=== PATIENT | female | born 1965 | race Caucasian/White ===

== ENCOUNTER 2020-02-14 05:37 | Emergency (ER) | payer MEDICAID, SELFPAY ==
[2020-02-14] VITALS (11 sets, daily range): BP systolic 135–173; BP diastolic 66–110; PULSE 66–100; RESP 14–24; TEMP 36.6–36.8; O2SAT 96–99; BMI 24.4
--- NOTE | 2020-02-14 06:22 | CTR_ITS ---
PROCEDURE INFORMATION: Exam: CT Abdomen And Pelvis Without Contrast Exam date and time: 02/14/2020 6:23 AM Age: 54 years old Clinical indication: Pain; Other: Left flank; Additional info: Left flank pain w/ HX of renal stones TECHNIQUE: Imaging protocol: Computed tomography of the abdomen and pelvis without contrast. Radiation optimization: All CT scans at this facility use at least one of these dose optimization techniques: automated exposure control; mA and/or kV adjustment per patient size (includes targeted exams where dose is matched to clinical indication); or iterative reconstruction. COMPARISON: CT Abdomen/Pelvis Renal [id number] 07/18/2017 8:38 AM RADIATION DOSE METRICS: Total DLP (mGy-cm): 817.97 FINDINGS: Limitations: Examinations performed without intravenous contrast have limited ability to detect many conditions. Lungs: Mild patchy atelectasis at bilateral lung bases. Liver: There is a 1.7 cm x 1.4 cm hypodensity in the right hepatic lobe on series 2, image 76, etiology and clinical significance uncertain. This is similar to prior study. Gallbladder and bile ducts: Unremarkable. Pancreas: Unremarkable. Spleen: Unremarkable. Adrenal glands: Unremarkable. Kidneys and ureters: The right kidney is unremarkable. There is a 0.2 cm stone in the left mid kidney. There is a 0.5 cm stone in the left upper ureter on series 2, image 99. Moderate left hydronephrosis. Stomach and bowel: Large hiatal hernia, which contains a large portion of the proximal stomach. No bowel obstruction identified. No diverticulitis identified. Appendix: A normal-appearing appendix is seen in the right lower quadrant. Intraperitoneal space: No free intraperitoneal air identified. No free intraperitoneal fluid identified. Vasculature: No abdominal aortic aneurysm. Lymph nodes: Unremarkable. Urinary bladder: Unremarkable as visualized. Reproductive: Unremarkable as visualized. Bones/joints: No emergent findings identified. Soft tissues: Unremarkable. CT/CT kidney stone [id number] IMPRESSION: 1. Left upper ureteral stone measuring 0.5 cm. Moderate left hydronephrosis. 2. Large hiatal hernia, which contains a large portion of the proximal stomach. This is larger than prior study. Radiation Dose CTDIVOL = (mGy): DLP = 817.97 (mGy-cm)
--- NOTE | 2020-02-14 06:22 | W.ED.ABDPA2 ---
HPI - Abdominal Pain General: Chief Complaint: Abdominal Pain Stated Complaint: Flank Pain/Abd pain Time Seen by Provider: 02/14/20 06:14 History of Present Illness: HPI narrative: 54 yo female w L flank pain and a hx of nephrolithiasis. Comes in today came planing of left flank pain that began 2 hours previous. She is not noticed any hematuria. Pain is severe similar to pain she has had in the past with nephrolithiasis she has severe nausea with it. She has not noticed any change in bowel habits. MD elicited complaint: flank pain Pertinent past history: kidney stones Onset (ago): hour(s) Location: L flank Severity: severe Quality: cramping Radiation: suprapubic Exacerbating factors: nothing Relieving factors: medication Associated Symptoms: Reports GI cramping, nausea, poor appetite and vomiting; Denies change in bowel habits, change in stool character, chills, coffee ground emesis, constipation, diarrhea, dyspepsia, dysuria, excessive flatus, fever(s), heartburn, hematochezia, hematuria, hematemesis, fecal incontinence, loose stools, melena and syncope Review of Systems Const: Denies: fever(s) or chills ENMT: Denies: throat pain, ear or mastoid pain, nasal discharge or nasal congestion Card: Denies: syncope Resp: Denies: dyspnea, productive cough or non-productive cough GI: Reports: nausea, vomiting and GI cramping; Denies: hematemesis, coffee ground emesis, heartburn, constipation, excessive flatus, fecal incontinence, change in bowel habits, change in stool character, hematochezia or melena : Denies: dysuria or hematuria Skin/Breast: Denies: rash or pruritus PFSH ED PFSH: Medical History (Updated 02/14/20 @ 07:25 by Aroldo Wisdom DO) Nephrolithiasis Physical Exam Const: COMMON NORMALS: no acute distress GENERAL APPEARANCE: cooperative and comfortable ORIENTATION/CONSCIOUSNESS: Yes awake, Yes oriented to person, Yes oriented to place and Yes oriented to time HENMT: COMMON NORMALS: normocephalic, atraumatic and hearing grossly normal bilaterally HEAD & SCALP: normocephalic and atraumatic Neck/C-Spine: COMMON NORMALS: no JVD Resp: COMMON NORMALS: normal respiratory effort, No retractions, No use of accessory muscles and clear to auscultation bilaterally AUSCULTATION: clear to auscultation bilaterally Cardio: COMMON NORMALS: no JVD, regular rate, regular rhythm and No murmurs present (Cardio) RATE: regular rate RHYTHM: regular rhythm GI: COMMON NORMALS: Soft to palpation and No hepatosplenomegaly present AUSCULTATION: Yes normoactive bowel sounds PALPATION: Yes Soft to palpation, No Tenderness to palpation present (GI), No Guarding due to palpation present (GI) and Yes No hepatosplenomegaly present Back/Pelvis: GENERAL BACK: Yes CVA tenderness CVA tenderness: left Extremity: COMMON NORMALS: normal to inspection, capillary refill normal, no clubbing, cyanosis or edema, no calf tenderness and no pedal edema Neuro: SENSORIUM/ORIENTATION: Yes oriented to person, Yes oriented to place and Yes oriented to time Skin: COMMON NORMALS: no rashes or lesions noted GENERAL SKIN EXAM: no rashes or lesions noted Course Vital Signs: Vital signs: Vital Signs Temperature 98.2 F 02/14/20 05:43 Pulse Rate 83 02/14/20 08:02 Respiratory Rate 16 02/14/20 08:02 Blood Pressure 135/74 02/14/20 08:02 Pulse Oximetry 96 02/14/20 08:02 MDM - Abdominal Pain MDM Narrative: Medical decision making narrative: CT and labs reviewed. Discussed with patient. She has a left ureterolithiasis 5 mm started on tamsulosin 1 pain medications nausea medicine strain urine and have her follow-up with Dr. Clemens later this week. She has worsening problems her pain is uncontrollable return is no sign of infection at this time in her urine. Lab Data: Attestation: I reviewed the patient's lab results. Labs: Lab Results 02/14/20 02/14/20 02/14/20 Range/Units 06:05 06:10 06:10 WBC 12.2 H (4.0-10.0) 10^3/ uL RBC 4.51 (4.1-5.3) 10^6/u L Hgb 13.1 (11.5-15.3) g/dL Hct 41.2 (37.0-47.0) % MCV 91.4 (81-99) fL MCH 29.0 (28.0-34.0) pg MCHC 31.8 (30.0-36.0) g/dL RDW 13.1 (12.1-15.1) % Plt Count 186 (130-400) 10^3/c mm MPV 11.8 H (7.4-10.4) fL Neut % (Auto) 74.6 % Lymph % (Auto) 17.4 % Prentiss % (Auto) 5.1 % Eos % (Auto) 2.0 % Baso % (Auto) 0.6 % Neut # (Auto) 9.07 H (1.8-7.7) 10^3/u L Lymph # (Auto) 2.1 (0.8-4.8) 10^3/u L Prentiss # (Auto) 0.6 (0.2-0.9) 10^3/u L Eos # (Auto) 0.2 (0.0-0.8) 10^3/u L Baso # (Auto) 0.1 (0.0-0.1) 10^3/u L Nucleated RBC % (a uto) 0 % Nucleated RBCs # 0.0 /100WBC Sodium 138 (136-145) mmol/L Potassium 4.4 (3.5-5.1) mmol/L Chloride 104 (98-107) mmol/L Carbon Dioxide 22 (22-29) mmol/L Anion Gap 16.4 (5-19) BUN 17 (6-20) mg/dL Creatinine 0.8 (0.5-0.9) mg/dL GFR Calculation 75.0 L (90-130) mL/min Glucose 98 (65-115) mg/dL Calculated Osmolal ity 288 (285-295) mOsm/k g Calcium 9.5 (8.5-10.5) mg/dL Total Bilirubin 0.2 (0.15-1.2) mg/dL AST 19 (0-32) U/L ALT 23 (0-33) U/L Alkaline Phosphata se 90 (35-105) IU/L Total Protein 6.5 L (6.6-8.7) g/dL Albumin 4.1 (3.5-5.2) g/dL Globulin 2.4 (1.3-4.6) g/dL Lipase 28 (13-60) U/L HCG, Qual (Negative) Urine Color Yellow (Yellow) Urine Appearance Sl hazy (CLEAR) Urine pH 5.0 (5-7) Ur Specific Gravit y 1.020 (1.005-1.030) Urine Protein Neg (Negative) Urine Glucose (UA) Norm (Normal) Urine Ketones Negative (Negative) Urine Blood 2+ H (Negative) Urine Nitrate Negative (Negative) Urine Bilirubin Neg (Negative) Urine Urobilinogen Norm (Negative) mg/dL Ur Leukocyte Nia ase Trace H (Negative) Urine RBC 15-25 H (0-2) /hpf Urine WBC 0-4 H (0-5) /hpf Ur Squamous Epith Cells 40-55 H (0-5) /hpf Amorphous Sediment Not Reportable Urine Bacteria 1+ H (NONE) /hpf 02/13/ Range/Units 06:10 WBC (4.0-10.0) 10^3/ uL RBC (4.1-5.3) 10^6/u L Hgb (11.5-15.3) g/dL Hct (37.0-47.0) % MCV (81-99) fL MCH (28.0-34.0) pg MCHC (30.0-36.0) g/dL RDW (12.1-15.1) % Plt Count (130-400) 10^3/c mm MPV (7.4-10.4) fL Neut % (Auto) % Lymph % (Auto) % Prentiss % (Auto) % Eos % (Auto) % Baso % (Auto) % Neut # (Auto) (1.8-7.7) 10^3/u L Lymph # (Auto) (0.8-4.8) 10^3/u L Prentiss # (Auto) (0.2-0.9) 10^3/u L Eos # (Auto) (0.0-0.8) 10^3/u L Baso # (Auto) (0.0-0.1) 10^3/u L Nucleated RBC % (a uto) % Nucleated RBCs # /100WBC Sodium (136-145) mmol/L Potassium (3.5-5.1) mmol/L Chloride (98-107) mmol/L Carbon Dioxide (22-29) mmol/L Anion Gap (5-19) BUN (6-20) mg/dL Creatinine (0.5-0.9) mg/dL GFR Calculation (90-130) mL/min Glucose (65-115) mg/dL Calculated Osmolal ity (285-295) mOsm/k g Calcium (8.5-10.5) mg/dL Total Bilirubin (0.15-1.2) mg/dL AST (0-32) U/L ALT (0-33) U/L Alkaline Phosphata se (35-105) IU/L Total Protein (6.6-8.7) g/dL Albumin (3.5-5.2) g/dL Globulin (1.3-4.6) g/dL Lipase (13-60) U/L HCG, Qual Negative (Negative) Urine Color (Yellow) Urine Appearance (CLEAR) Urine pH (5-7) Ur Specific Gravit y (1.005-1.030) Urine Protein (Negative) Urine Glucose (UA) (Normal) Urine Ketones (Negative) Urine Blood (Negative) Urine Nitrate (Negative) Urine Bilirubin (Negative) Urine Urobilinogen (Negative) mg/dL Ur Leukocyte Nia ase (Negative) Urine RBC (0-2) /hpf Urine WBC (0-5) /hpf Ur Squamous Epith Cells (0-5) /hpf Amorphous Sediment Urine Bacteria (NONE) /hpf Discharge Plan Discharge Patient Disposition: Home Clinical Impression: Nephrolithiasis Condition: Stable Prescriptions: New hydrocodone-acetaminophen 5-325 mg tablet 1 tab PO Q6H PRN (Reason: pain) Qty: 25 RF: 0 Zofran 4 mg tablet 4 mg PO Q6H PRN (Reason: nausea and vomiting) Qty: 20 RF: 0 tamsulosin 0.4 mg capsule 0.4 mg PO DAILY 14 Days Qty: 14 RF: 0 Discharge Orders: Discharge ED (Routine); Ordered 02/14/20 Ordered By: Aroldo Wisdom Discharge Diet: Usual diet Discharge Activity: Resume usual activity Activity Restrictions/Additional Instructions: Case management will call to make an appointment for you to see urology. Strain urine to collect stone for pathology. Coding Level of Care Code ED Third Shift Lieutenant for [employer] Fwd Exam Comprehensive
[2020-02-14] MEDS: ondansetron 2 mg/ML SDV 2 mL 4 MG IVP (06:25)
[2020-02-14 06:30] LABS: Basophils # 0.1 10^3/uL (0.0-0.1); Basophils % 0.6 %; Eosinophils # 0.2 10^3/uL (0.0-0.8); Hematocrit 41.2 % (37.0-47.0); Hemoglobin 13.1 g/dL (11.5-15.3); Lymphocytes # 2.1 10^3/uL (0.8-4.8); Lymphocytes % 17.4 %; Mean Corpuscular HGB Conc 31.8 g/dL (30.0-36.0); Mean Corpuscular Volume 91.4 fL (81-99); Mean Platelet Volume 11.8 fL (7.4-10.4); Monocytes # 0.6 10^3/uL (0.2-0.9); Monocytes % 5.1 %; Neutrophils # 9.07 10^3/uL (1.8-7.7); Neutrophils % 74.6 %; Nucleated Red Blood Cells % 0 %; Platelet Count 186 10^3/cmm (130-400); Red Blood Count 4.51 10^6/uL (4.1-5.3); Red Cell Distribution Width 13.1 % (12.1-15.1); White Blood Count 12.2 10^3/uL (4.0-10.0)
[2020-02-14] MEDS: morphine 4 mg/mL SDV 1 mL IVP (06:30)
[2020-02-14 06:43] LABS: HCG, Serum Qual Negative (Negative)
[2020-02-14 06:53] LABS: Bilirubin Urine Neg (Negative); Blood Urine 2+ (Negative); Glucose Urine UA Norm (Normal); Ketones Urine Negative (Negative); Leukocyte Esterase Urine Trace (Negative); Nitrate Urine Negative (Negative); Protein Urine Neg (Negative); Urine Appearance SL Hazy (CLEAR); Urine Color Yellow (Yellow); Urobilinogen Urine Norm (Negative)
[2020-02-14 07:03] LABS: Alanine Aminotransferase 23 U/L (0-33); Albumin Level 4.1 g/dL (3.5-5.2); Alkaline Phosphatase 90 IU/L (35-105); Anion Gap 16.4 (5-19); Aspartate Amino Transferase 19 U/L (0-32); Blood Urea Nitrogen 17 mg/dL (6-20); Calcium 9.5 mg/dL (8.5-10.5); Carbon Dioxide 22 mmol/L (22-29); Chloride 104 mmol/L (98-107); Globulin 2.4 g/dL (1.3-4.6); Glucose 98 mg/dL (65-115); Lipase 28 U/L (13-60); Osmolality Calculated 288 mOsm/kg (285-295); Potassium 4.4 mmol/L (3.5-5.1); Sodium 138 mmol/L (136-145); Total Bilirubin 0.2 mg/dL (0.15-1.2); Total Protein 6.5 g/dL (6.6-8.7)
--- NOTE | 2020-02-14 07:03 | PC.NURSE ---
Received report and assumed care. No acute distress noted. States med has helped a little but is requesting more pain meds.
[2020-02-14 07:07] LABS: Add Urine Culture? No; Bacteria Urine 1+ /hpf; RBC Urine 15-25 /hpf (0-2); Squamous Epithelial Cell Urine 40-55 /hpf (0-5); WBC Urine 0-4 /hpf (0-5)
[2020-02-14] MEDS: morphine 4 mg/mL SDV 1 mL 6 MG IVP (07:41)
--- NOTE | 2020-02-14 09:14 | DCPLANNER ---
fleet maintenance manager had message to schedule a follow up appointment for patient with Dr. Clemens. fleet maintenance manager called the office of Dr. Clemens, spoke with Radha, gave clinic patients information. fleet maintenance manager was told that patients information would be printed and reviewed. Clinic will call patient with appointment information.
--- NOTE | 2020-02-14 09:45 | PC.NURSE ---
Patient instructed not to drive. Must call for a ride home. TRH/ESCROW CLOSER
--- NOTE | 2020-02-15 11:37 | DCPLANNER ---
Patient had a follow up appointment for patient with Dr. Clemens - patient did attend appointment.
== END 2020-02-14 09:28 | disposition home or self-care (01) ==
PROVIDERS: Emergency Medicine; Emergency Provider Family Medicine
DX: N20.0 Calculus of kidney (principal); Z87.442 Personal history of urinary calculi
CPT/HCPCS: 12345; 74176; 80053; 81001; 83690; 84703; 85025; 96374; 96375; 99283; J2270; J2405

== ENCOUNTER 2020-02-15 08:49 | Outpatient (CLI) | payer MEDICAID, SELFPAY ==
--- NOTE | 2020-02-15 09:00 | XR_ITS ---
WS: [id number] XR KUB [id number] REASON FOR EXAM: NEPHROLITHIASIS FINDINGS: Large amount of stool throughout the colon. No bowel distention. No free air. A tiny calcific densities seen overlying the left kidney which correlates to the CT scan 02/14/2020 f indings of a tiny calculus in the left mid to lower kidney. There is a vertically oriented density wh ich overlies the transverse process of L3 which could represent the proximal ureteral calculus seen o n the CT scan 02/14/2020. No significant calcification seen in the pelvis. XR/XR KUB [id number] IMPRESSION: Findings on the plain film correlated with the CT scan for urinary calculi as a alicia.
== END 2020-02-15 08:50 | disposition home or self-care (01) ==
LOC: RAD 08:54
PROVIDERS: Visit Provider Urology
DX: N20.0 Calculus of kidney (principal)
CPT/HCPCS: 74018; 81003

== ENCOUNTER → 2020-02-20 13:14 | Outpatient (BNVA) | payer MEDICAID, SELFPAY | PROVIDERS: Visit Provider Urology | DX: N20.1 Calculus of ureter (principal) | CPT/HCPCS: 82365; 88300 ==

== ENCOUNTER 2023-01-12 15:21 | Outpatient (CLI) | payer BC, MEDICAID, SELFPAY ==
--- NOTE | 2023-01-12 15:25 | MM_ITS ---
WS: [id number] VIEWS: MLO and CC views both breasts. 3D digital tomosynthesis is also included in this exam. f no prior exams. Baseline.. Findings: Questionable 8 mm nodule identified in the central LEFT breast at mid depth almost directly behind th e nipple on the cc view only. This cannot be identified on the MLO view. No architectural distortion or suspicious calcification in either breast. No discrete suspicious nodules in the RIGHT breast. Com pression spot views of the LEFT breast as well as regional ultrasound would be recommended for furthe r work-up. There are scattered areas of fibroglandular density. Impression: MM/[place] [id number] BI-RADS: 0-Incomplete: Need additional imaging evaluation FOLLOW-UP: See Report This mammogram was also analyzed by the Computer Aided Detection System R2 Imag e [employer].
== END 2023-01-12 15:22 | disposition home or self-care (01) ==
LOC: RAD 15:21
PROVIDERS: PCP Electrodiagnostic Medicine; Visit Provider Electrodiagnostic Medicine
DX: Z12.31 Encounter for screening mammogram for malignant neoplasm of breast (principal)
CPT/HCPCS: 77063; 77067

== ENCOUNTER 2023-01-25 05:55 | Day surgery (SDC) | payer BC, MEDICAID, SELFPAY ==
[2023-01-25] VITALS (16 sets, daily range): BP systolic 145–183; BP diastolic 07–128; PULSE 65–95; RESP 10–18; TEMP 36.3–36.9; O2SAT 95–99; BMI 25.7
[2023-01-25] MEDS: sodium chloride 0.9% 1,000 ML 30 ML IV (06:52)
--- NOTE | 2023-01-25 07:01 | P.HPUD_ITS ---
Surgery/Procedure H&P Update DATE OF PROCEDURE: January 25, 2023 DATE H&P PERFORMED: 01/19/23 H&P UPDATE INFORMATION: I have reviewed H&P completed within last 30 days, I have examined patient prior to procedure and No changes to prior documentation PLANNED PROCEDURE: Operation Date: 01/25/23 08:00 Proposed Procedures p : [id number] wide local excision right upper extremety with senti radha lymph node biopsy right axillaNO NEEDLE LOC PER DR RUDOLPH,C43.9(Right) - Juan Carlos Rudolph DO s Sentinal Lymph Node Biopsy(Right) - Juan Carlos Rudolph DO
--- NOTE | 2023-01-25 07:14 | ANES.PREANE2 ---
Pre-Anesthetic Assessment Height/Weight: Height 1.6 m Weight 65.771 kg Temp Pulse Resp BP Pulse Ox O2 Del Method 98.4 F 78 18 145/99 98 Room Air 01/25/23 06:53 01/25/23 06:53 01/25/23 06:53 01/25/23 06:53 01/25/23 06:53 01/25/23 06:58 Operation Date: 01/25/23 08:00 Proposed Procedures p : [id number] wide local excision right upper extremety with sentinel lymph node biopsy right axillaNO NEEDLE LOC PER DR RUDOLPH,C43.9(Right) - DO kanwal Potts Sentinal Lymph Node Biopsy(Right) - Juan Carlos Rudolph DO Familial anesthetic complications: None Was Beta Nevaeh taken within 24 hours: N/A Was Clonidine taken within 24 hours: N/A Last intake: Intake Last Liquid Date 01/24/23 Last Liquid Time 23:00 Last Solid Date 01/24/23 Last Solid Time 23:00 Social Tobacco and No alcohol Exam alert, oriented x 3, clear to auscultation bilaterally and regular rate & rhythm Airway Mallampati: Class I Dentition: false GI Gastroesophageal Reflux Disease Anesthetic Plan ASA status: 2 Anesthesia: General Risk of > 500 ml blood loss (7ml/kg in children): No Medications/Allergies Home Medications Medication Instructions Recorded Confirmed Last Taken Type pantoprazole 20 mg tablet,delayed 20 mg PO DAILY gerd 01/20/23 01/20/23 01/22/23 History release Allergies Allergy/AdvReac Type Severity Reaction Status Date / Time No Known Allergies Allergy Verified 01/25/23 06:18 Current Medications Generic Name Dose Route Start Last Admin Trade Name Freq PRN Reason Stop Dose Admin Sodium Chloride 1,000 mls @ 30 mls/hr 01/25/23 06:45 01/25/23 06:52 Sodium Chloride 0.9% IV 01/26/23 06:44 30 mls/hr .Q24H JASMINE Administration PFSH Anesthesia Medical History Hiatal hernia Urolithiasis Surgical History S/P extracorporeal shock wave therapy Family History Mother Cancer lung Social History Smoking and tobacco/nicotine status: current every day tobacco/nicotine user Alcohol intake: never Substance/Drug Use: never Marital status: Current occupational status: unemployed Data Anesthesia Cardiac Studies: No Data to Display
[2023-01-25] MEDS: ceFAZolin 2,000 MG in sodium chloride 0.9% (plus) 50 ML 100 MG IV (09:30)
[2023-01-25] MEDS: isosulfan blue 10 mg/mL SDV 5mL SUBCUT (09:43)
[2023-01-25] MEDS: lidocaine-epi 2% 20 mL INJ INJECTION (09:52)
--- NOTE | 2023-01-25 10:42 | P.OP_ITS ---
Operative Report Date of procedure: January 25, 2023 Pre-op diagnosis: Malignant melanoma right arm Post-op diagnosis: same Procedure done: Wide local excision of malignant melanoma right arm with right axillary sentinel lymph node biopsy Implants: Surgicel x 2 Specimens removed/disposition: Right axillary sentinel lymph node biopsies x 2 Wide local excision right arm Surgeon: Juan Carlos Jordan DO Anesthesia: General and Local Estimated blood loss (mL): 20 Complications: None apparent Brief History: This very pleasant 57-year-old female who was found to have a malignant melanoma of her right arm. This was excised. It was 1 cm in diameter and 4.1 mm in thickness. Wide local excision with right axillary sentinel lymph node biopsy was indicated. The risk and benefits were explained and documented. Procedure: Patient was wheeled operative room placed on the OR table in supine position. The right axilla was inspected prepped and draped in usual sterile fashion. General endotracheal intubation was achieved by department anesthesia. A timeout was performed. All present were in agreement. Lymphazurin blue was injected underneath the site of the malignant melanoma and massaged into place for 5 minutes. Previously technetium was injected by radiology and they had indicated 2 areas of possible sentinel lymph nodes. The [place] counter read [id number] over the area of malignant melanoma. 2% lidocaine with epinephrine was used to inject the skin in the right axilla. A 10 blade scalpel was then used to make a 4 mm curvilinear incision on the anterior axillary line. Dissection was carried down with electrocautery through the dermis and subcutaneous fat. [place] counter was used to attempt to identify a sentinel node. No nodes were identified greater than 10%. I did however find too large lymph nodes in the right axilla. They were not blue and were not 10% on the Stefan counter of the primary lesion but I took them. Specimens were sent to pathology in formalin. Hemostasis was controlled with electrocautery and 2 pieces of Surgicel. A second incision was made more laterally, measuring 3 cm in length. No further sentinel lymph nodes were found. Incisions were closed with 3-0 Vicryl in an interrupted fashion at the dermis and skin glue was applied. The right posterior arm was then inspected prepped and draped usual sterile fashion. 2% lidocaine with epinephrine was used to anesthetize the area around the previous lesion. Wide local excision was performed. Approximately 1 and half centimeters was taken in all directions around the scar. A 10 blade scalpel was used to perform an elliptical excision. Electrocautery was used to dissect down through the dermis and a cough the excision. Hemostasis was controlled with electrocautery. Skin was closed with 3-0 nylon in an interrupted fashion. Sterile bandages were applied. Patient tolerated procedure well.
[2023-01-25] MEDS: fentaNYL 50 mcg/mL INJ 2mL IVP (11:19)
[2023-01-25] MEDS: labetalol 5 mg/mL SDV 20mL 100 MG (11:30)
[2023-01-25] MEDS: HYDROcodone-acetaminophen 10-325 mg Tablet 1 TAB PO (12:37)
== END 2023-01-25 13:05 | disposition home or self-care (01) ==
PROVIDERS: PCP Electrodiagnostic Medicine; Visit Provider Surgery
PROC: (CPT 19120; principal; 2023-01-25 07:40)
PROC: (CPT 11601; 2023-01-25 07:40)
DX: C43.61 Malignant melanoma of right upper limb, including shoulder (principal); F17.210 Nicotine dependence, cigarettes, uncomplicated
CPT/HCPCS: 11601; 38500; 78195; 88304; 88307; 88342; 88344; A9541; J0690; J1100; J2405; J2704; J3010; J3490; J7030; Q9968

== ENCOUNTER 2023-02-09 07:51 | Oncology outpatient (recurring) (ONCR) | payer BC, MEDICAID, SELFPAY ==
[2023-02-09 09:56] LABS: Basophils # 0.1 10^3/uL (0.0-0.1); Eosinophils # 0.2 10^3/uL (0.0-0.8); Eosinophils % 2.8 %; Hematocrit 43.7 % (36-47); Lymphocytes # 1.3 10^3/uL (0.8-4.8); Lymphocytes % 18.2 %; Mean Corpuscular Hemoglobin 28.1 pg (27-33); Mean Corpuscular Volume 87.6 fl (85-98); Mean Platelet Volume 11.4 fL (7.4-10.4); Monocytes # 0.4 10^3/uL (0.2-0.9); Monocytes % 5.5 %; Neutrophils # 5.16 10^3/uL (1.8-7.7); Neutrophils % 72.4 %; Nucleated Red Blood Cells % 0 %; Platelet Count 236 10^3/cmm (157-399); Red Blood Count 4.99 10^6/uL (3.85-5.65); Red Cell Distribution Width 14.7 % (12.1-15.1); White Blood Count 7.13 10^3/uL (3.29-11.43)
[2023-02-09 10:17] LABS: Alanine Aminotransferase 26 U/L (0-33); Albumin Level 4.5 g/dL (3.5-5.2); Alkaline Phosphatase 128 U/L (35-105); Anion Gap 15.2 (5-19); Aspartate Amino Transferase 21 U/L (0-32); Blood Urea Nitrogen 11 mg/dL (6-20); Carbon Dioxide 26 mmol/L (22-29); Chloride 103 mmol/L (98-107); Globulin 3.1 g/dL (1.3-4.6); Glomerular Filtration Rate 74.2 mL/min (90-130); Glucose 77 mg/dL (65-115); Lactate Dehydrogenase 186 U/L (135-214); Osmolality Calculated 288 mOsm/kg (285-295); Potassium 4.2 mmol/L (3.5-5.1); Sodium 140 mmol/L (136-145); Total Bilirubin 0.2 mg/dL (0.15-1.2); Total Protein 7.6 g/dL (6.6-8.7)
[2023-02-09 10:52] LABS: Hepatitis A Antibody IgM Non-Reactive (Nonreactive); Hepatitis B Core AB, Total Non-Reactive (Nonreactive); Hepatitis B Surface AB < 3.5 (11.5-1000); Hepatitis B Surface Antigen Non-Reactive (Nonreactive); Hepatitis C Virus Antibody Non-Reactive (Nonreactive)
[2023-02-10 12:26] LABS: Leukemia Profile (BBPL) See Report; Lymphoma Profile (BBPL) See Report
== END 2023-02-28 23:59 | disposition home or self-care (01) ==
PROVIDERS: Internal Medicine; PCP Electrodiagnostic Medicine; Visit Provider Electrodiagnostic Medicine
DX: C82.90 Follicular lymphoma, unspecified, unspecified site (principal); Z98.890 Other specified postprocedural states; Z85.820 Personal history of malignant melanoma of skin; R92.8 Other abnormal and inconclusive findings on diagnostic imaging of breast
CPT/HCPCS: 36415; 80053; 83615; 85025; 86705; 86706; 86709; 86803; 87340; 88184; 88185

== ENCOUNTER 2023-02-11 09:17 | Day surgery (SDC) | payer BC, MEDICAID, SELFPAY ==
[2023-02-11] VITALS (11 sets, daily range): BP systolic 115–149; BP diastolic 81–103; PULSE 71–96; RESP 14–18; TEMP 36.2–36.8; O2SAT 95–100; BMI 25.7
--- NOTE | 2023-02-11 09:31 | SC_ITS ---
WS: [id number] Infusion port placement, C-arm fluoroscopy, 02/11/2023 Clinical Data: Mediport placement Comparison: None. Findings: Dr. Jordan placed an infusion port via the right subclavian vein. The port ends in the caval atrial junction Impression: Infusion port placement.
--- NOTE | 2023-02-11 09:31 | XR_ITS ---
WS: [id number] Exam: XR chest 1V portable [id number] Date/Time of Exam: 02/11/2023 9:31 AM Reason For Exam: Postop Mediport placement No priors. RIGHT subclavian port has been placed and ends in the lower third of the SVC. A double density seen i n the LEFT retrocardiac region may represent infiltrate or mass. Remaining lung [place] are clear. The mediastinum is normal in contour. Heart size is normal. Bony structures are intact. IMPRESSION: 1. Right-sided subclavian port in satisfactory position. 2. Double density seen in the LEFT retrocardiac region that may represent consolidated infiltrate or mass in the LEFT lower lobe. Recommendations: Follow-up PA and lateral chest x-ray would be recommended for further work-up.
--- NOTE | 2023-02-11 10:00 | W.PM.OPSUD ---
Surgery/Procedure H&P Update DATE OF PROCEDURE: February 11, 2023 DATE H&P PERFORMED: 02/09/23 H&P UPDATE INFORMATION: I have reviewed H&P completed within last 30 days, I have examined patient prior to procedure and No changes to prior documentation PLANNED PROCEDURE: Operation Date: 02/11/23 10:50 Proposed Procedures p [id number] port placement C85.90(Not Applicable) - Juan Carlos Jordan, DO
[2023-02-11] MEDS: sodium chloride 0.9% 1,000 ML 30 ML IV (10:01)
--- NOTE | 2023-02-11 10:36 | ANES.PAUD2 ---
Pre-Anesthetic Update Pre-Anesthetic Assessment: Date of Surgery/Procedure: 02/11/23 Proposed Procedure: Operation Date: 02/11/23 10:50 Proposed Procedures p [id number] port placement C85.90(Not Applicable) - Juan Carlos Jordan, DO Any changes to Pre-Anesthetic Assessment?: No Last Intake: Intake Last Liquid Date 02/10/23 Last Liquid Time 20:00 Last Solid Date 02/10/23 Last Solid Time 18:00 Vitals: Temperature 98.2 F 02/11/23 09:41 Temperature Source Temporal Artery S can 02/11/23 09:41 Pulse Rate 77 02/11/23 09:41 Pulse Rhythm Regular 02/11/23 09:42 Pulse Strength 3+ Normal 02/11/23 09:42 Respiratory Rate 16 02/11/23 09:41 Blood Pressure 115/84 02/11/23 09:41 Blood Pressure Julia n 94 02/11/23 09:41 Pulse Oximetry 99 02/11/23 09:41 Oxygen Delivery Me thod Room Air 02/11/23 09:42 Exam: Pre-Anes Outpt Exam: alert, oriented x 3, clear to auscultation bilaterally and regular rate & rhythm Other Pertinent Information: Other Pertinent Information: MAC for Port placement Cardiac Studies: No Data to Display
[2023-02-11] MEDS: ceFAZolin 2,000 MG in sodium chloride 0.9% (plus) 50 ML 100 MG IV (12:07)
[2023-02-11] MEDS: lidocaine-epi 2% 20 mL INJ INJECTION (12:23)
[2023-02-11] MEDS: heparin, porcine 1,000 unit/mL INJ 10 mL 10000 UNIT IRRIGATION (12:23)
--- NOTE | 2023-02-11 12:48 | P.OP_ITS ---
Operative Report Date of procedure: February 11, 2023 Pre-op diagnosis: Melanoma and lymphoma Post-op diagnosis: same Procedure done: Mediport placement Implants: PowerPort Specimens removed/disposition: None Surgeon: Juan Carlos Jordan DO Anesthesia: MAC Estimated blood loss (mL): 5 Complications: None apparent Brief History: This very pleasant 57-year-old female who presented to my office for wide local excision of a previously excised melanoma. She underwent wide local excision with sentinel lymph node biopsy. Lymph nodes came back as lymphoma. Oncology is requesting Mediport placement for chemotherapy access. Risk and benefits were explained and documented. Procedure: The patient was taken to the operating room and placed supine on the operating room table. All bony prominences were padded. She was given IV sedation and monitored throughout the case by the anesthesia personnel. SCDs were placed and turned on. The arms were tucked to the side. Patient received Ancef 2 g preoperatively IV. The bilateral chest wall was prepped and draped in usual s terile fashion using chlorhexidine base prep. Sterile drapes were applied. We did procedure pause prior to beginning. An 18 gauge needle was placed in the right subclavian vein. Dark, nonpulsatile b lood was aspirated. A guidewire was placed through the needle centrally toward the atrial/vena caval junction. Fluoroscopy visualized good placement. The needle was removed and the guidewire was clipped to the drape with a hemostat. Further local anesthetic was infiltrated in the soft tissues of the right chest wall and a #15 blade was used to make a horizontal skin incision. A subcutaneous Mediport pocket was created using Bovie cautery, dissecting down through the skin and subcutaneous tissues. Meticulous hemostasis was achieved. The Mediport was sutured in position using 3-0 vicryl suture x2 stitches. A #15 blade was used to make a small skin ryanne around the guidewire insertion area. The Mediport tubing was tunneled through the subcutaneous tissues up to the needle insertion location. A dilator with a peel-away sheath was placed over the guidewire and placed centrally. After measuring the Mediport tubing was cut to length so that the tip would end at the atrial/vena caval junction. The inner cannula and the guidewire were removed, leaving the dilator sheath in place. The Mediport was flushed. The tip of the catheter was inserted through the peel-away sheath and the peel-away sheath removed in the standard fashion. The Mediport was accessed with a straight Shaver needle and dark, nonpulsatile blood was aspirated and flushed using heparinized saline to hep-lock the Mediport. Final fluoroscopy visualization showed no kink in the catheter and the tip of the Mediport tubing near the atrial/vena caval junction. Both skin incisions were thoroughly irrigated and suctioned dry. Meticulous hemostasis noted. The dermis was approximated with 3-0 Vicryl in an interrupted fashion. Skin was closed with Dermabond. Patient was awakened from anesthesia and transferred via her cart to the recovery room in stable condition. All needle, sponge, and instrument counts were correct per the operating personnel x2 counts.
[2023-02-11] MEDS: fentaNYL 50 mcg/mL INJ 2mL IVP (13:08)
--- NOTE | 2023-02-11 13:16 | ANE.PACU2 ---
Inpatient post-anesthesia follow up: Airway intact: Yes Vital signs: Temperature 97.2 F Pulse Rate 80 Respiratory Rate 18 Blood Pressure 142/92 Pulse Oximetry 97 Oxygen Delivery Me thod Room Air Oxygen Flow Rate 6 Fraction of Inspir ed Oxygen Hydration adequate: Yes Nausea and vomiting: No Pain level: 1 Mental status: Baseline
== END 2023-02-11 14:16 | disposition home or self-care (01) ==
PROVIDERS: PCP Electrodiagnostic Medicine; Visit Provider Surgery
PROC: (CPT 36561; principal; 2023-02-11 10:40)
DX: C85.90 Non-Hodgkin lymphoma, unspecified, unspecified site (principal); C43.9 Malignant melanoma of skin, unspecified
CPT/HCPCS: 36561; 71045; 76000; 77001; C1788; J0690; J1644; J2250; J2704; J3010; J7030

== ENCOUNTER 2023-03-09 09:56 | Outpatient (CLI) | payer BC, MEDICAID, SELFPAY ==
--- NOTE | 2023-03-09 10:13 | PETR_ITS ---
PROCEDURE INFORMATION: Exam: PET/CT Whole Body Exam date and time: 03/09/2023 11:26 AM Age: 57 years old Clinical indication: Condition or disease; Primary cancer: Follicular lymphoma unspecified site; Follow-up oncological assessment; Additional info: Initial, please schedule within 1-2 weeks. Fax results to [phone] LABS AND CLINICAL REPORTS: Glucose: 100 mg/dl Treatment strategy for malignancy (PET staging): Initial Staging (PI) TECHNIQUE: Imaging protocol: Following at least four-hour fasting and following the injection of radiopharmaceutical, low dose CT images were obtained. Then, PET images were obtained. Attenuation corrected images were constructed using the CT scan. Fused images of PET and CT were reviewed. The standardized uptake values (SUV) reported below are maximum values within a region of interest, expressed in gm/ml. Exam includes the whole body. Radiopharmaceutical: 12.96 mCi F-18 FDG (Fluorodeoxyglucose), IV. Time of imaging post radiopharmaceutical administration: 1 hour COMPARISON: CT kidney stone [id number] 02/14/2020 6:53 AM FINDINGS: Tubes, catheters and devices: Right-sided Port-A-Cath terminates in the region of the superior cavoatrial junction. Brain: Visualized brain has normal physiologic uptake. Pharynx: No abnormal uptake. Larynx: No abnormal uptake. Lungs, pleura and trachea: No abnormal uptake. Heart: Normal physiologic uptake. Mediastinal space: No abnormal uptake. Diaphragm: Moderate hiatal hernia. Liver: No abnormal uptake. Gallbladder and bile ducts: No abnormal uptake. Pancreas: No abnormal uptake. Spleen: No abnormal uptake. Adrenal glands: No abnormal uptake. Kidneys and ureters: Normal physiologic uptake. Stomach and bowel: Duodenal diverticulum. No bowel obstruction. Vasculature: No abnormal uptake. Lymph nodes: Hypermetabolic left supraclavicular lymph nodes with SUV max 16.7. The largest node measures up to 1.7 cm. Hypermetabolic right supraclavicular lymph nodes with SUV max 6.6. Hypermetabolic left axillary and subpectoral lymph nodes with SUV max 20.1. Hypermetabolic right axillary and subpectoral lymph nodes with SUV max 31.5. Hypermetabolic paravertebral lymph nodes in the posterior mediastinum with SUV max 18.4. Hypermetabolic periaortic retroperitoneal lymph nodes with SUV max 15.1. Hypermetabolic left common iliac chain lymph node with SUV max 18.2 measuring up to 1.5 cm. Hypermetabolic left external iliac chain lymph node with SUV max 10. Hypermetabolic left paratracheal lymph node with SUV max 16.2. Bones/joints: No abnormal uptake in the visualized axial and appendicular skeleton. Soft tissues: See Lymph nodes finding. PET/PET WB melanoma INITIAL [id number] IMPRESSION: Malignant range FDG uptake is seen within bilateral supraclavicular, axillary and subpectoral lymph nodes; paravertebral janes tissue in the posterior mediastinum; mediastinal lymph nodes; retroperitoneal lymph nodes; and left common and external iliac chain lymph nodes.
== END 2023-03-09 09:57 | disposition home or self-care (01) ==
LOC: RAD 09:57
PROVIDERS: PCP Electrodiagnostic Medicine; Visit Provider Internal Medicine
DX: C82.90 Follicular lymphoma, unspecified, unspecified site (principal); Z98.890 Other specified postprocedural states; Z85.820 Personal history of malignant melanoma of skin; R93.89 Abnormal findings on diagnostic imaging of other specified body structures
CPT/HCPCS: 78816; A9552

== ENCOUNTER 2023-03-16 12:21 | Outpatient (CLI) | payer BC, MEDICAID, SELFPAY ==
--- NOTE | 2023-03-16 12:24 | MM_ITS ---
WS: [id number] VIEWS: MLO, CC, and ML views of the LEFT breast only.. 3D digital tomosynthesis is also included in this exam. Comparison made with prior exam of screening study performed 01/12/2023.. Findings: A sharply circumscribed 8 mm nodular density is noted at the 12 o'clock position in the LEFT breast a t mid depth level. No suspicious calcification or architectural distortion is seen. This corresponds to the abnormality identified on the screening mammogram performed 01/12/2023. Follow-up with regiona l ultrasound would be indicated. There are scattered areas of fibroglandular density in the LEFT radha st. Impression: MM/[place] [id number] BI-RADS: 0-Incomplete: Need additional imaging evaluation FOLLOW-UP: See Report This mammogram was also analyzed by the Computer Aided Detection System R2 Imag e Lacquer Sprayer.
--- NOTE | 2023-03-16 12:24 | US_ITS ---
WS: [id number] Exam: US breast LT limited* [id number] Date/Time of Exam: 03/16/2023 1:15 PM Reason For Exam: ABNORMAL MAMMO Ultrasound of the LEFT breast is performed from the 9:00 to the 3 o'clock position. A sharply circumscribed simple cyst is seen at the 12 o'clock position that measures 0.84 x 0.70 x 0. 46 cm. This corresponds to the abnormality identified with recent mammography. No suspicious solid no dule or mass was identified in this region. IMPRESSION: 1. 0.84 x 0.70 x 0.46 cm well-defined cyst at the 12 o'clock position in the LEFT breast which corres ponds to the abnormality described on recent mammography. BI-RADS Category 2. Continue yearly screening mammography.
== END 2023-03-16 12:22 | disposition home or self-care (01) ==
LOC: RAD 12:21
PROVIDERS: PCP Electrodiagnostic Medicine; Visit Provider Electrodiagnostic Medicine
DX: N63.20 Unspecified lump in the left breast, unspecified quadrant (principal)
CPT/HCPCS: 76642; 77061; G0279

== ENCOUNTER 2023-03-29 08:00 | Oncology outpatient (recurring) (ONCR) | payer BC, MEDICAID, SELFPAY ==
[2023-03-29 08:14] VITALS: BP 121/85; PULSE 90; RESP 18; TEMP 36.8; O2SAT 100
[2023-03-29 08:30] LABS: Basophils # 0.1 10^3/uL (0.0-0.1); Basophils % 0.7 %; Eosinophils # 0.3 10^3/uL (0.0-0.8); Eosinophils % 4.4 %; Hematocrit 38.4 % (36-47); Lymphocytes # 1.4 10^3/uL (0.8-4.8); Lymphocytes % 19.8 %; Mean Corpuscular HGB Conc 32.6 g/dL (30-55); Mean Corpuscular Hemoglobin 28.3 pg (27-33); Mean Corpuscular Volume 86.9 fl (85-98); Mean Platelet Volume 11.2 fL (7.4-10.4); Monocytes # 0.5 10^3/uL (0.2-0.9); Monocytes % 7.4 %; Neutrophils # 4.78 10^3/uL (1.8-7.7); Neutrophils % 67.6 %; Nucleated Red Blood Cells % 0 %; Platelet Count 184 10^3/cmm (157-399); Red Blood Count 4.42 10^6/uL (3.85-5.65); Red Cell Distribution Width 14.4 % (12.1-15.1); White Blood Count 7.07 10^3/uL (3.29-11.43)
[2023-03-29 08:57] LABS: Alanine Aminotransferase 23 U/L (0-33); Albumin Level 4.1 g/dL (3.5-5.2); Alkaline Phosphatase 104 U/L (35-105); Anion Gap 13.5 (5-19); Aspartate Amino Transferase 22 U/L (0-32); Blood Urea Nitrogen 20 mg/dL (6-20); Calcium 9.7 mg/dL (8.5-10.5); Carbon Dioxide 25 mmol/L (22-29); Chloride 106 mmol/L (98-107); Creatinine Clr Calc Pharmacy 67.1499; Glomerular Filtration Rate 64.8 mL/min (90-130); Glucose 91 mg/dL (65-115); Lactate Dehydrogenase 194 U/L (135-214); Osmolality Calculated 292 mOsm/kg (285-295); Potassium 4.5 mmol/L (3.5-5.1); Sodium 140 mmol/L (136-145); Total Bilirubin 0.2 mg/dL (0.15-1.2); Total Protein 7.1 g/dL (6.6-8.7)
[2023-03-29] MEDS: pembrolizumab 200 MG in sodium chloride 0.9% 250 ML 516 MG IV (10:26)
[2023-03-29 10:53] LABS: Immunoglobulin IGA 94 mg/dL (70-400); Immunoglobulin IGG 849 mg/dL (700-1600); Immunoglobulin IGM 166 mg/dL (40-230)
[2023-03-29 11:12] VITALS: BP 116/78; PULSE 79; RESP 16; TEMP 36.6; O2SAT 94
[2023-03-30 11:14] LABS: PROTEIN, TOTAL 6.6 g/dL (6.1-8.1)
[2023-03-30 12:49] LABS: Beta-2-Microglobulin 2.92 mg/L (< OR = 2.51)
[2023-03-31 09:29] LABS: ALPHA 1 GLOBULIN 0.3 g/dL (0.2-0.3); ALPHA 2 GLOBULIN 0.7 g/dL (0.5-0.9); BETA 1 GLOBULIN 0.5 g/dL (0.4-0.6); BETA 2 GLOBULIN 0.3 g/dL (0.2-0.5); GAMMA GLOBULIN 0.8 g/dL (0.8-1.7)
== END 2023-03-29 23:59 | disposition home or self-care (01) ==
PROVIDERS: PCP Electrodiagnostic Medicine; Visit Provider Internal Medicine
DX: C82.90 Follicular lymphoma, unspecified, unspecified site (principal); Z98.890 Other specified postprocedural states; Z85.820 Personal history of malignant melanoma of skin; R92.8 Other abnormal and inconclusive findings on diagnostic imaging of breast; Z79.899 Other long term (current) drug therapy; C43.61 Malignant melanoma of right upper limb, including shoulder
CPT/HCPCS: 36591; 80053; 82232; 82784; 83615; 84155; 84165; 85025; 86334; 96413; A4222; J1642; J7050; J9271

== ENCOUNTER 2023-04-19 08:56 | Oncology outpatient (recurring) (ONCR) | payer BC, MEDICAID, SELFPAY ==
[2023-04-19 09:29] LABS: Basophils # 0.1 10^3/uL (0.0-0.1); Basophils % 0.8 %; Eosinophils # 0.5 10^3/uL (0.0-0.8); Hematocrit 31.1 % (36-47); Lymphocytes # 1.4 10^3/uL (0.8-4.8); Lymphocytes % 21.5 %; Mean Corpuscular HGB Conc 31.5 g/dL (30-55); Mean Corpuscular Hemoglobin 28.1 pg (27-33); Mean Corpuscular Volume 89.1 fl (85-98); Mean Platelet Volume 10.8 fL (7.4-10.4); Monocytes # 0.5 10^3/uL (0.2-0.9); Monocytes % 7.4 %; Neutrophils # 4.01 10^3/uL (1.8-7.7); Neutrophils % 62.1 %; Nucleated Red Blood Cells % 0 %; Platelet Count 190 10^3/cmm (157-399); Red Blood Count 3.49 10^6/uL (3.85-5.65); Red Cell Distribution Width 14.5 % (12.1-15.1); White Blood Count 6.46 10^3/uL (3.29-11.43)
[2023-04-19 09:56] LABS: Alanine Aminotransferase 17 U/L (0-33); Albumin Level 3.8 g/dL (3.5-5.2); Alkaline Phosphatase 90 U/L (35-105); Aspartate Amino Transferase 17 U/L (0-32); Blood Urea Nitrogen 10 mg/dL (6-20); Calcium 8.7 mg/dL (8.5-10.5); Carbon Dioxide 24 mmol/L (22-29); Chloride 108 mmol/L (98-107); Creatinine Clr Calc Pharmacy 67.1499; Globulin 2.5 g/dL (1.3-4.6); Glomerular Filtration Rate 64.8 mL/min (90-130); Glucose 100 mg/dL (65-115); Lactate Dehydrogenase 184 U/L (135-214); Osmolality Calculated 291 mOsm/kg (285-295); Sodium 141 mmol/L (136-145); Thyroid Stimulating Hormone 1.65 uIU/mL (0.27-4.20); Total Bilirubin 0.2 mg/dL (0.15-1.2); Total Protein 6.3 g/dL (6.6-8.7)
[2023-04-19 11:01] LABS: Reticulocyte % 2.2 % (0.5-2.0)
[2023-04-19 11:19] LABS: Ferritin 8 ng/mL (15-150); Iron 27 ug/dL (37-145)
[2023-04-19] MEDS: pembrolizumab 200 MG in sodium chloride 0.9% 250 ML 516 MG IV (11:26)
[2023-04-19] MEDS: sodium chloride 0.9% 250 ML 75 ML IV (11:26)
[2023-04-19 12:43] VITALS: BP 144/94; PULSE 78; RESP 16; TEMP 37.2; O2SAT 99
[2023-04-19 13:02] VITALS: BP 136/84; O2SAT 70
[2023-04-19 17:16] LABS: Folate Level 7.1 ng/mL (4.8-37.3)
[2023-04-19 17:50] LABS: Vitamin B12 319 pg/mL (232-1245)
== END 2023-04-19 23:59 | disposition home or self-care (01) ==
PROVIDERS: PCP Electrodiagnostic Medicine; Visit Provider Internal Medicine
DX: C82.24 Follicular lymphoma grade III, unspecified, lymph nodes of axilla and upper limb (principal); Z85.820 Personal history of malignant melanoma of skin; Z51.12 Encounter for antineoplastic immunotherapy; Z87.891 Personal history of nicotine dependence; D64.9 Anemia, unspecified; F41.9 Anxiety disorder, unspecified; F32.A Depression, unspecified; Z79.899 Other long term (current) drug therapy
CPT/HCPCS: 80053; 82607; 82728; 82746; 83540; 83615; 84443; 85025; 85045; 96413; A4222; J1642; J7050; J9271

== ENCOUNTER 2023-04-27 12:28 | Oncology outpatient (recurring) (ONCR) | payer BC, MEDICAID, SELFPAY ==
[2023-04-27] MEDS: iron sucrose 500 MG in sodium chloride 0.9% 250 ML 78 MG IV (13:11)
[2023-04-27 16:00] VITALS: BP 120/81; PULSE 80; RESP 16; TEMP 36.8; O2SAT 96
== END 2023-04-29 23:59 | disposition home or self-care (01) ==
PROVIDERS: PCP Electrodiagnostic Medicine; Visit Provider Internal Medicine
DX: C82.90 Follicular lymphoma, unspecified, unspecified site (principal); Z98.890 Other specified postprocedural states; Z85.820 Personal history of malignant melanoma of skin; R92.8 Other abnormal and inconclusive findings on diagnostic imaging of breast
CPT/HCPCS: 96365; 96366; J1642; J1756; J7050

== ENCOUNTER 2023-05-10 08:57 | Oncology outpatient (recurring) (ONCR) | payer BC, MEDICAID, SELFPAY ==
[2023-05-10 09:32] LABS: Basophils # 0.1 10^3/uL (0.0-0.1); Eosinophils # 0.5 10^3/uL (0.0-0.8); Eosinophils % 7.2 %; Hematocrit 34.9 % (36-47); Lymphocytes # 1.2 10^3/uL (0.8-4.8); Lymphocytes % 19.7 %; Mean Corpuscular HGB Conc 31.8 g/dL (30-55); Mean Corpuscular Hemoglobin 28.3 pg (27-33); Mean Platelet Volume 11.3 fL (7.4-10.4); Monocytes # 0.4 10^3/uL (0.2-0.9); Monocytes % 6.6 %; Neutrophils # 4.07 10^3/uL (1.8-7.7); Neutrophils % 65.3 %; Nucleated Red Blood Cells % 0 %; Platelet Count 176 10^3/cmm (157-399); Red Blood Count 3.92 10^6/uL (3.85-5.65); Red Cell Distribution Width 15.9 % (12.1-15.1); White Blood Count 6.23 10^3/uL (3.29-11.43)
[2023-05-10 10:14] LABS: Alanine Aminotransferase 42 U/L (0-33); Albumin Level 3.9 g/dL (3.5-5.2); Alkaline Phosphatase 114 U/L (35-105); Anion Gap 14.1 (5-19); Aspartate Amino Transferase 32 U/L (0-32); Blood Urea Nitrogen 11 mg/dL (6-20); Calcium 8.9 mg/dL (8.5-10.5); Carbon Dioxide 23 mmol/L (22-29); Chloride 109 mmol/L (98-107); Globulin 2.6 g/dL (1.3-4.6); Glomerular Filtration Rate 73.9 mL/min (90-130); Glucose 97 mg/dL (65-115); Osmolality Calculated 293 mOsm/kg (285-295); Potassium 4.1 mmol/L (3.5-5.1); Sodium 142 mmol/L (136-145); Thyroid Stimulating Hormone 2.34 uIU/mL (0.27-4.20); Total Bilirubin 0.2 mg/dL (0.15-1.2); Total Protein 6.5 g/dL (6.6-8.7)
[2023-05-10] MEDS: pembrolizumab 200 MG in sodium chloride 0.9% 250 ML 516 MG IV (11:44)
[2023-05-10 12:21] VITALS: BP 120/82; PULSE 74; O2SAT 97
== END 2023-05-10 23:59 | disposition home or self-care (01) ==
PROVIDERS: PCP Electrodiagnostic Medicine; Visit Provider Internal Medicine
DX: Z51.12 Encounter for antineoplastic immunotherapy; C43.61 Malignant melanoma of right upper limb, including shoulder; C82.90 Follicular lymphoma, unspecified, unspecified site; Z98.890 Other specified postprocedural states; Z85.820 Personal history of malignant melanoma of skin
CPT/HCPCS: 80053; 84443; 85025; 96413; A4222; J7050; J9271

== ENCOUNTER 2023-05-11 12:58 | Oncology outpatient (recurring) (ONCR) | payer BC, MEDICAID, SELFPAY ==
[2023-05-11] MEDS: iron sucrose 500 MG in sodium chloride 0.9% 250 ML 78 MG IV (13:27)
[2023-05-11 13:30] VITALS: BP 105/71; PULSE 84; O2SAT 97
[2023-05-11 16:06] VITALS: PULSE 84; TEMP 36.8; O2SAT 97
[2023-05-11 16:08] VITALS: BP 132/85
== END 2023-05-30 23:59 | disposition home or self-care (01) ==
LOC: ONCMED 12:59
PROVIDERS: PCP Electrodiagnostic Medicine; Visit Provider Internal Medicine
DX: D50.9 Iron deficiency anemia, unspecified
CPT/HCPCS: 96365; 96366; J1642; J1756; J7050

== ENCOUNTER 2023-05-27 10:29 | Outpatient (CLI) | payer BC, MEDICAID, SELFPAY ==
--- NOTE | 2023-05-27 11:00 | FL_ITS ---
WS: [id number] Exam: FL barium swallow modifd [id number] Date/Time of Exam: 05/27/2023 11:10 AM Reason For Exam: Fluoroscopy time: 1min [id number] minutes # of spot films: Modified barium swallow is performed in conjunction with the speech therapy service. The patient tolerated all consistencies of barium mixture foodstuffs without evidence of aspiration o r penetration. Minimal residue observed in the vallecula. The patient swallowed a barium tablet witho ut difficulty or complication. Oropharyngeal phase of swallowing appears normal. IMPRESSION: 1. No aspiration or penetration identified. A separate report of findings and recommendations will follow from the speech therapy service.
== END 2023-05-27 10:30 | disposition home or self-care (01) ==
LOC: RAD 10:29
PROVIDERS: PCP Electrodiagnostic Medicine; Visit Provider Internal Medicine
DX: C82.90 Follicular lymphoma, unspecified, unspecified site (principal); C43.61 Malignant melanoma of right upper limb, including shoulder; R13.10 Dysphagia, unspecified
CPT/HCPCS: 74230; 92611

== ENCOUNTER 2023-05-31 11:31 | Oncology outpatient (recurring) (ONCR) | payer BC, MEDICAID, SELFPAY ==
[2023-05-31 11:54] VITALS: BP 106/74; PULSE 79; RESP 16; TEMP 36.7; O2SAT 98
[2023-05-31 12:13] LABS: Basophils # 0.1 10^3/uL (0.0-0.1); Basophils % 0.8 %; Eosinophils # 0.4 10^3/uL (0.0-0.8); Eosinophils % 6.9 %; Hematocrit 36.4 % (36-47); Lymphocytes # 1.2 10^3/uL (0.8-4.8); Lymphocytes % 19.6 %; Mean Corpuscular HGB Conc 32.4 g/dL (30-55); Mean Corpuscular Hemoglobin 28.7 pg (27-33); Mean Corpuscular Volume 88.6 fl (85-98); Mean Platelet Volume 11.2 fL (7.4-10.4); Monocytes # 0.5 10^3/uL (0.2-0.9); Neutrophils # 4.05 10^3/uL (1.8-7.7); Neutrophils % 64.5 %; Nucleated Red Blood Cells % 0 %; Platelet Count 157 10^3/cmm (157-399); Red Blood Count 4.11 10^6/uL (3.85-5.65); Red Cell Distribution Width 15.5 % (12.1-15.1); White Blood Count 6.27 10^3/uL (3.29-11.43)
--- NOTE | 2023-05-31 12:22 | PC.NURSE ---
Pt has swelling in left neck and slightly swollen to right neck noted.
[2023-05-31 12:38] LABS: Alanine Aminotransferase 56 U/L (0-33); Albumin Level 4.2 g/dL (3.5-5.2); Alkaline Phosphatase 132 U/L (35-105); Anion Gap 13.3 (5-19); Aspartate Amino Transferase 34 U/L (0-32); Blood Urea Nitrogen 12 mg/dL (6-20); Calcium 9.2 mg/dL (8.5-10.5); Carbon Dioxide 26 mmol/L (22-29); Chloride 107 mmol/L (98-107); Globulin 2.3 g/dL (1.3-4.6); Glomerular Filtration Rate 57.1 mL/min (90-130); Glucose 119 mg/dL (65-115); Osmolality Calculated 295 mOsm/kg (285-295); Potassium 4.3 mmol/L (3.5-5.1); Sodium 142 mmol/L (136-145); Thyroid Stimulating Hormone 2.35 uIU/mL (0.27-4.20); Total Bilirubin 0.2 mg/dL (0.15-1.2); Total Protein 6.5 g/dL (6.6-8.7)
[2023-05-31] MEDS: pembrolizumab 200 MG in sodium chloride 0.9% 250 ML 516 MG IV (13:57)
== END 2023-05-31 23:59 | disposition home or self-care (01) ==
PROVIDERS: PCP Electrodiagnostic Medicine; Visit Provider Internal Medicine
DX: Z51.12 Encounter for antineoplastic immunotherapy (principal); C43.61 Malignant melanoma of right upper limb, including shoulder
CPT/HCPCS: 80053; 84443; 85025; 96413; A4222; J1642; J7050; J9271

== ENCOUNTER 2023-06-15 08:10 | Outpatient (CLI) | payer BC, MEDICAID, SELFPAY ==
--- NOTE | 2023-06-15 08:00 | PETR_ITS ---
PROCEDURE INFORMATION: Exam: PET/CT Whole Body Exam date and time: 06/15/2023 8:46 AM Age: 58 years old Clinical indication: Restaging of non-Hodgkin lymphoma. Follicular lymphoma. Melanoma right upper limb. LABS AND CLINICAL REPORTS: Glucose: 77 mg/dl Treatment strategy for malignancy (PET staging): Restaging (PS) TECHNIQUE: Imaging protocol: Following at least four-hour fasting and following the injection of radiopharmaceutical, low dose CT images were obtained. Then, PET images were obtained. Attenuation corrected images were constructed using the CT scan. Fused images of PET and CT were reviewed. The standardized uptake values (SUV) reported below are maximum values within a region of interest, expressed in gm/ml. Exam includes the whole body. Radiopharmaceutical: 11.83 mCi F-18 FDG (Fluorodeoxyglucose), IV. Time of imaging post radiopharmaceutical administration: 1 hour Injection site: Right antecubital vein COMPARISON: PT PET WB melanoma INITIAL [id number] 03/09/2023 11:26 AM FINDINGS: Tubes, catheters and devices: Port catheter placed via the right subclavian vein terminates in the cavoatrial junction. Brain: Visualized brain has normal physiologic uptake. Pharynx: No abnormal uptake. Larynx: No abnormal uptake. Lungs, pleura and trachea: No abnormal uptake. No lung nodules or masses. No pleural effusion. Heart: Normal physiologic uptake. There is no cardiomegaly. No coronary artery calcification is visualized. There is no pericardial effusion. Mediastinal space: No abnormal uptake. Stable moderate size hiatal hernia. Liver: No abnormal uptake. Gallbladder and bile ducts: No abnormal uptake. No calcified gallstones. Pancreas: No abnormal uptake. Spleen: No abnormal uptake. No splenomegaly. Adrenal glands: No abnormal uptake. No nodules. Kidneys and ureters: Normal physiologic uptake. No hydronephrosis. Stomach and bowel: No abnormal uptake. Intraperitoneal and retroperitoneal spaces: No abnormal uptake. No ascites. Urinary bladder: Normal physiologic uptake. Reproductive: No abnormal uptake. Vasculature: No abnormal uptake. No aortic aneurysm. Lymph nodes: Stable in size left supraclavicular lymphadenopathy decreased in uptake from 16.5 SUV to 3.2 SUV. Stable in size right axillary lymphadenopathy decreased in uptake from 12.1 SUV to 2.9 SUV. Left axillary lymph nodes slightly increased in size (from 1-1.2 cm in the short axis) decreased in uptake from 17.3 SUV to 2.1 SUV. bilateral axillary lymph nodes. Stable in size bilateral retrocrural lymphadenopathy decreased in uptake from 17.7 SUV to 1.9 SUV. Stable in size retroperitoneal lymphadenopathy decreased from 18.2 SUV to 2.1 SUV. Left pelvic lymphadenopathy decreased from 9 SUV to 1.7 SUV. Left inguinal lymph node decreased from 4.7 SUV to 0.9 SUV. lymphadenopathy in the head, neck, chest, abdomen, pelvis, and extremities. Bones/joints: No abnormal uptake in the visualized axial and appendicular skeleton. Soft tissues: Nonnodular subcutaneous soft tissue density in the right axilla present on the prior exam decreased in thickness and decreased in uptake from 19.4 SUV to 1.1 SUV. Intense uptake anteriorly in the right arm extending to the antecubital fossa is likely reactive to extravasation of the injected FDG. PET/PET WB melanoma SUBSEQ [id number] IMPRESSION: In comparison with 03/09/2023 there is metabolic response to treatment with decrease in maximum uptake within stable in size lymphadenopathy to 3.2 SUV. Reference uptake: Mediastinum 1.9 SUV, liver 2.6 SUV. The response score is 3 based on Deauville 5 point scale.
== END 2023-06-15 08:11 | disposition home or self-care (01) ==
LOC: RAD 08:11
PROVIDERS: PCP Electrodiagnostic Medicine; Visit Provider Internal Medicine
DX: C85.90 Non-Hodgkin lymphoma, unspecified, unspecified site (principal); C43.61 Malignant melanoma of right upper limb, including shoulder
CPT/HCPCS: 78816; A9552

== ENCOUNTER 2023-06-21 08:25 | Oncology outpatient (recurring) (ONCR) | payer BC, MEDICAID, SELFPAY ==
[2023-06-21 08:55] LABS: Basophils # 0.1 10^3/uL (0.0-0.1); Basophils % 1.1 %; Eosinophils # 0.6 10^3/uL (0.0-0.8); Eosinophils % 9.4 %; Hematocrit 38.4 % (36-47); Lymphocytes # 1.3 10^3/uL (0.8-4.8); Lymphocytes % 20.3 %; Mean Corpuscular HGB Conc 32.3 g/dL (30-55); Mean Corpuscular Hemoglobin 28.6 pg (27-33); Mean Corpuscular Volume 88.5 fl (85-98); Mean Platelet Volume 10.7 fL (7.4-10.4); Monocytes # 0.4 10^3/uL (0.2-0.9); Monocytes % 6.1 %; Neutrophils # 4.17 10^3/uL (1.8-7.7); Neutrophils % 62.9 %; Nucleated Red Blood Cells % 0 %; Platelet Count 174 10^3/cmm (157-399); Red Blood Count 4.34 10^6/uL (3.85-5.65); Red Cell Distribution Width 15.3 % (12.1-15.1); White Blood Count 6.61 10^3/uL (3.29-11.43)
[2023-06-21 09:25] LABS: Alanine Aminotransferase 38 U/L (0-33); Alkaline Phosphatase 131 U/L (35-105); Aspartate Amino Transferase 23 U/L (0-32); Blood Urea Nitrogen 12 mg/dL (6-20); Carbon Dioxide 25 mmol/L (22-29); Chloride 110 mmol/L (98-107); Ferritin 142 ng/mL (15-150); Globulin 2.3 g/dL (1.3-4.6); Glomerular Filtration Rate 73.9 mL/min (90-130); Glucose 107 mg/dL (65-115); Iron 58 ug/dL (37-145); Osmolality Calculated 296 mOsm/kg (285-295); Percent Saturation 21.8 % (20-50); Sodium 143 mmol/L (136-145); Thyroid Stimulating Hormone 2.61 uIU/mL (0.27-4.20); Total Bilirubin 0.2 mg/dL (0.15-1.2); Total Iron Binding Capacity 265 mcg/dl; Total Protein 6.3 g/dL (6.6-8.7); Unsaturated Iron Binding 207 ug/dL (112-347)
[2023-06-21] MEDS: pembrolizumab 200 MG in sodium chloride 0.9% 250 ML 516 MG IV (11:24)
[2023-06-21 12:05] VITALS: BP 122/78; PULSE 72; RESP 16; TEMP 36.8; O2SAT 98
== END 2023-06-21 23:59 | disposition home or self-care (01) ==
PROVIDERS: Nurse Practitioner Family; PCP Electrodiagnostic Medicine; Visit Provider Internal Medicine
DX: Z51.12 Encounter for antineoplastic immunotherapy (principal); C43.61 Malignant melanoma of right upper limb, including shoulder
CPT/HCPCS: 80053; 82728; 83540; 83550; 84443; 85025; 96413; A4222; J7050; J9271

== ENCOUNTER 2023-07-14 08:33 | Oncology outpatient (recurring) (ONCR) | payer BC, MEDICAID, SELFPAY ==
[2023-07-14 08:46] LABS: Basophils # 0.1 10^3/uL (0.0-0.1); Basophils % 1.1 %; Eosinophils # 0.8 10^3/uL (0.0-0.8); Eosinophils % 12.3 %; Hematocrit 39.8 % (36-47); Lymphocytes # 1.3 10^3/uL (0.8-4.8); Lymphocytes % 21.9 %; Mean Corpuscular HGB Conc 32.4 g/dL (30-55); Mean Corpuscular Hemoglobin 28.2 pg (27-33); Mean Corpuscular Volume 86.9 fl (85-98); Mean Platelet Volume 10.7 fL (7.4-10.4); Monocytes # 0.5 10^3/uL (0.2-0.9); Monocytes % 8.7 %; Neutrophils # 3.42 10^3/uL (1.8-7.7); Neutrophils % 55.8 %; Nucleated Red Blood Cells % 0 %; Platelet Count 155 10^3/cmm (157-399); Red Blood Count 4.58 10^6/uL (3.85-5.65); Red Cell Distribution Width 14.6 % (12.1-15.1); White Blood Count 6.12 10^3/uL (3.29-11.43)
[2023-07-14 09:22] LABS: Alanine Aminotransferase 25 U/L (0-33); Albumin Level 4.1 g/dL (3.5-5.2); Alkaline Phosphatase 110 U/L (35-105); Anion Gap 14.3 (5-19); Aspartate Amino Transferase 21 U/L (0-32); Blood Urea Nitrogen 13 mg/dL (6-20); Calcium 8.4 mg/dL (8.5-10.5); Carbon Dioxide 25 mmol/L (22-29); Chloride 108 mmol/L (98-107); Globulin 2.5 g/dL (1.3-4.6); Glomerular Filtration Rate 57.1 mL/min (90-130); Glucose 107 mg/dL (65-115); Osmolality Calculated 297 mOsm/kg (285-295); Potassium 4.3 mmol/L (3.5-5.1); Sodium 143 mmol/L (136-145); Thyroid Stimulating Hormone 2.42 uIU/mL (0.27-4.20); Total Bilirubin 0.2 mg/dL (0.15-1.2); Total Protein 6.6 g/dL (6.6-8.7)
[2023-07-14] MEDS: pembrolizumab 200 MG in sodium chloride 0.9% 250 ML 516 MG IV (11:45)
[2023-07-14 12:20] VITALS: BP 122/74; PULSE 72; RESP 18; TEMP 36.6; O2SAT 98
== END 2023-07-14 23:59 | disposition home or self-care (01) ==
PROVIDERS: Nurse Practitioner Family; PCP Electrodiagnostic Medicine; Visit Provider Internal Medicine
DX: Z51.12 Encounter for antineoplastic immunotherapy (principal); C43.61 Malignant melanoma of right upper limb, including shoulder; Z53.9 Procedure and treatment not carried out, unspecified reason
CPT/HCPCS: 80053; 84443; 85025; 96413; A4222; J7050; J9271

== ENCOUNTER 2023-08-04 12:50 | Oncology outpatient (recurring) (ONCR) | payer BC, MEDICAID, SELFPAY ==
[2023-08-04 13:14] LABS: Basophils # 0.1 10^3/uL (0.0-0.1); Basophils % 0.9 %; Eosinophils # 0.6 10^3/uL (0.0-0.8); Hematocrit 30.6 % (36-47); Lymphocytes # 1.6 10^3/uL (0.8-4.8); Mean Corpuscular HGB Conc 33.7 g/dL (30-55); Mean Corpuscular Hemoglobin 29.2 pg (27-33); Mean Corpuscular Volume 86.7 fl (85-98); Mean Platelet Volume 10.9 fL (7.4-10.4); Monocytes # 0.6 10^3/uL (0.2-0.9); Monocytes % 7.9 %; Neutrophils # 5.03 10^3/uL (1.8-7.7); Neutrophils % 63.9 %; Nucleated Red Blood Cells % 0 %; Platelet Count 161 10^3/cmm (157-399); Red Blood Count 3.53 10^6/uL (3.85-5.65); Red Cell Distribution Width 14.8 % (12.1-15.1); White Blood Count 7.86 10^3/uL (3.29-11.43)
[2023-08-04 13:44] LABS: Alanine Aminotransferase 34 U/L (0-33); Alkaline Phosphatase 96 U/L (35-105); Anion Gap 13.8 (5-19); Aspartate Amino Transferase 29 U/L (0-32); Blood Urea Nitrogen 24 mg/dL (6-20); Calcium 8.9 mg/dL (8.5-10.5); Carbon Dioxide 23 mmol/L (22-29); Chloride 103 mmol/L (98-107); Globulin 2.3 g/dL (1.3-4.6); Glomerular Filtration Rate 57.1 mL/min (90-130); Glucose 112 mg/dL (65-115); Osmolality Calculated 287 mOsm/kg (285-295); Potassium 3.8 mmol/L (3.5-5.1); Sodium 136 mmol/L (136-145); Thyroid Stimulating Hormone 2.21 uIU/mL (0.27-4.20); Total Bilirubin 0.2 mg/dL (0.15-1.2); Total Protein 6.3 g/dL (6.6-8.7)
[2023-08-04 14:47] LABS: Ferritin 87 ng/mL (15-150); Iron 36 ug/dL (37-145); Lactate Dehydrogenase 230 U/L (135-214); Percent Saturation 13.4 % (20-50); Total Iron Binding Capacity 267 mcg/dl; Unsaturated Iron Binding 231 ug/dL (112-347)
[2023-08-04] MEDS: pembrolizumab 200 MG in sodium chloride 0.9% 250 ML 516 MG IV (15:14)
[2023-08-04 15:48] VITALS: BP 109/69; PULSE 93; RESP 18; TEMP 36.3
== END 2023-08-04 23:59 | disposition home or self-care (01) ==
PROVIDERS: Nurse Practitioner Family; PCP Electrodiagnostic Medicine; Visit Provider Internal Medicine
DX: C43.61 Malignant melanoma of right upper limb, including shoulder; Z51.12 Encounter for antineoplastic immunotherapy; D50.9 Iron deficiency anemia, unspecified; C82.90 Follicular lymphoma, unspecified, unspecified site
CPT/HCPCS: 80053; 82728; 83540; 83550; 83615; 84443; 85025; 96413; J7050; J9271

== ENCOUNTER 2023-08-25 09:30 | Oncology outpatient (recurring) (ONCR) | payer BC, MEDICAID, SELFPAY ==
[2023-08-12 12:20] VITALS: BP 138/91; PULSE 92; RESP 16; TEMP 36.7; O2SAT 97
[2023-08-12] MEDS: iron sucrose 200 MG in sodium chloride 0.9% (100 ml) 100 ML 220 MG IV (12:29)
[2023-08-12] MEDS: sodium chloride 0.9% 250 ML 75 ML IV (12:29)
[2023-08-12 13:10] VITALS: BP 130/83; PULSE 91; O2SAT 95
[2023-08-16 09:40] VITALS: BP 126/87; PULSE 80; RESP 16; TEMP 36.3; O2SAT 100
[2023-08-16] MEDS: iron sucrose 200 MG in sodium chloride 0.9% (100 ml) 100 ML 220 MG IV (09:50)
[2023-08-16] MEDS: sodium chloride 0.9% 250 ML 75 ML IV (09:50)
[2023-08-16 10:25] VITALS: BP 134/89; PULSE 92; RESP 16; TEMP 36.9; O2SAT 97
[2023-08-18 14:05] VITALS: BP 146/92; PULSE 92; RESP 16; TEMP 36.3; O2SAT 94
[2023-08-18] MEDS: iron sucrose 200 MG in sodium chloride 0.9% (100 ml) 100 ML 220 MG IV (14:22)
[2023-08-18 15:03] VITALS: BP 138/93; PULSE 100; RESP 16; TEMP 36.7; O2SAT 98
[2023-08-20 09:02] VITALS: BP 133/81; PULSE 103; RESP 17; TEMP 36.5; O2SAT 96
[2023-08-20] MEDS: iron sucrose 200 MG in sodium chloride 0.9% (100 ml) 100 ML 220 MG IV (09:11)
[2023-08-20 09:44] VITALS: BP 130/86; PULSE 88; RESP 16; O2SAT 98
[2023-08-23 13:36] VITALS: BP 114/78; PULSE 97; RESP 18; TEMP 36.4; O2SAT 97
[2023-08-23] MEDS: iron sucrose 200 MG in sodium chloride 0.9% (100 ml) 100 ML 220 MG IV (13:41)
[2023-08-23 14:16] VITALS: BP 122/85; PULSE 93; RESP 18; TEMP 36.4; O2SAT 96
[2023-08-25 10:00] LABS: Basophils # 0.1 10^3/uL (0.0-0.1); Basophils % 1.1 %; Eosinophils % 10.7 %; Hematocrit 40.6 % (36-47); Lymphocytes # 1.6 10^3/uL (0.8-4.8); Lymphocytes % 17.3 %; Mean Corpuscular Hemoglobin 28.4 pg (27-33); Mean Corpuscular Volume 88.8 fl (85-98); Mean Platelet Volume 10.7 fL (7.4-10.4); Monocytes # 0.5 10^3/uL (0.2-0.9); Monocytes % 5.7 %; Neutrophils # 6.03 10^3/uL (1.8-7.7); Neutrophils % 64.9 %; Nucleated Red Blood Cells % 0 %; Platelet Count 179 10^3/cmm (157-399); Red Blood Count 4.57 10^6/uL (3.85-5.65); Red Cell Distribution Width 14.6 % (12.1-15.1); White Blood Count 9.29 10^3/uL (3.29-11.43)
[2023-08-25 10:30] LABS: Alanine Aminotransferase 44 U/L (0-33); Albumin Level 4.2 g/dL (3.5-5.2); Alkaline Phosphatase 128 U/L (35-105); Aspartate Amino Transferase 31 U/L (0-32); Blood Urea Nitrogen 8 mg/dL (6-20); Calcium 9.3 mg/dL (8.5-10.5); Carbon Dioxide 25 mmol/L (22-29); Chloride 104 mmol/L (98-107); Globulin 2.4 g/dL (1.3-4.6); Glomerular Filtration Rate 73.9 mL/min (90-130); Glucose 112 mg/dL (65-115); Osmolality Calculated 283 mOsm/kg (285-295); Sodium 137 mmol/L (136-145); Thyroid Stimulating Hormone 2.61 uIU/mL (0.27-4.20); Total Bilirubin 0.2 mg/dL (0.15-1.2); Total Protein 6.6 g/dL (6.6-8.7)
[2023-08-25] MEDS: pembrolizumab 200 MG in sodium chloride 0.9% 250 ML 516 MG IV (11:32)
[2023-08-25 12:13] VITALS: BP 125/89; PULSE 85; TEMP 37.1; O2SAT 97
== END 2023-08-25 23:59 | disposition home or self-care (01) ==
PROVIDERS: Nurse Practitioner Family; PCP Electrodiagnostic Medicine; Visit Provider Internal Medicine
DX: Z53.9 Procedure and treatment not carried out, unspecified reason (principal); Z51.12 Encounter for antineoplastic immunotherapy; C43.61 Malignant melanoma of right upper limb, including shoulder
CPT/HCPCS: 80053; 84443; 85025; 96365; 96413; A4222; J1756; J7050; J9271

== ENCOUNTER 2023-09-15 10:57 | Oncology outpatient (recurring) (ONCR) | payer BC, MEDICAID, SELFPAY ==
[2023-09-15 11:34] VITALS: BMI 25.2
[2023-09-15] MEDS: pembrolizumab 200 MG in sodium chloride 0.9% 250 ML 516 MG IV (12:01)
[2023-09-15 12:45] VITALS: BP 127/83; PULSE 89; RESP 17; TEMP 36.3; O2SAT 98
== END 2023-09-15 23:59 | disposition home or self-care (01) ==
PROVIDERS: PCP Electrodiagnostic Medicine; Visit Provider Internal Medicine
DX: Z51.12 Encounter for antineoplastic immunotherapy; C43.61 Malignant melanoma of right upper limb, including shoulder
CPT/HCPCS: A4222; J7050; J9271

== ENCOUNTER 2023-10-19 11:30 | Oncology outpatient (recurring) (ONCR) | payer BC, MEDICAID, SELFPAY ==
[2023-10-06 11:36] LABS: Basophils # 0.1 10^3/uL (0.0-0.1); Basophils % 0.6 %; Eosinophils # 0.6 10^3/uL (0.0-0.8); Hematocrit 42.2 % (36-47); Lymphocytes # 1.5 10^3/uL (0.8-4.8); Mean Corpuscular HGB Conc 33.2 g/dL (30-55); Mean Corpuscular Hemoglobin 29.8 pg (27-33); Mean Corpuscular Volume 89.8 fl (85-98); Mean Platelet Volume 10.4 fL (7.4-10.4); Monocytes # 0.7 10^3/uL (0.2-0.9); Monocytes % 7.8 %; Neutrophils # 5.53 10^3/uL (1.8-7.7); Neutrophils % 66.4 %; Nucleated Red Blood Cells % 0 %; Platelet Count 156 10^3/cmm (157-399); Red Cell Distribution Width 14.3 % (12.1-15.1); White Blood Count 8.33 10^3/uL (3.29-11.43)
[2023-10-06 12:11] LABS: Alanine Aminotransferase 127 U/L (0-33); Albumin Level 4.1 g/dL (3.5-5.2); Alkaline Phosphatase 182 U/L (35-105); Anion Gap 16.8 (5-19); Aspartate Amino Transferase 71 U/L (0-32); Blood Urea Nitrogen 10 mg/dL (6-20); Calcium 9.5 mg/dL (8.5-10.5); Carbon Dioxide 24 mmol/L (22-29); Chloride 102 mmol/L (98-107); Ferritin 421 ng/mL (15-150); Globulin 2.4 g/dL (1.3-4.6); Glomerular Filtration Rate 73.9 mL/min (90-130); Glucose 106 mg/dL (65-115); Iron 51 ug/dL (37-145); Osmolality Calculated 287 mOsm/kg (285-295); Percent Saturation 25.2 % (20-50); Potassium 3.8 mmol/L (3.5-5.1); Sodium 139 mmol/L (136-145); Thyroid Stimulating Hormone 3.59 uIU/mL (0.27-4.20); Total Bilirubin 0.2 mg/dL (0.15-1.2); Total Iron Binding Capacity 202 mcg/dl; Total Protein 6.5 g/dL (6.6-8.7); Unsaturated Iron Binding 151 ug/dL (112-347)
[2023-10-19 11:45] LABS: Basophils # 0.1 10^3/uL (0.0-0.1); Eosinophils # 0.6 10^3/uL (0.0-0.8); Eosinophils % 6.4 %; Hematocrit 39.8 % (36-47); Lymphocytes # 1.9 10^3/uL (0.8-4.8); Lymphocytes % 19.4 %; Mean Corpuscular HGB Conc 33.7 g/dL (30-55); Mean Corpuscular Hemoglobin 29.4 pg (27-33); Mean Corpuscular Volume 87.3 fl (85-98); Mean Platelet Volume 10.1 fL (7.4-10.4); Monocytes # 0.7 10^3/uL (0.2-0.9); Monocytes % 7.5 %; Neutrophils % 65.5 %; Nucleated Red Blood Cells % 0 %; Platelet Count 211 10^3/cmm (157-399); Red Blood Count 4.56 10^6/uL (3.85-5.65); Red Cell Distribution Width 13.9 % (12.1-15.1); White Blood Count 9.78 10^3/uL (3.29-11.43)
[2023-10-19 12:04] LABS: Alanine Aminotransferase 39 U/L (0-33); Albumin Level 4.3 g/dL (3.5-5.2); Alkaline Phosphatase 144 U/L (35-105); Anion Gap 16.5 (5-19); Aspartate Amino Transferase 30 U/L (0-32); Blood Urea Nitrogen 15 mg/dL (6-20); Calcium 9.1 mg/dL (8.5-10.5); Carbon Dioxide 24 mmol/L (22-29); Chloride 103 mmol/L (98-107); Globulin 2.5 g/dL (1.3-4.6); Glomerular Filtration Rate 51.2 mL/min (90-130); Glucose 85 mg/dL (65-115); Osmolality Calculated 288 mOsm/kg (285-295); Potassium 4.5 mmol/L (3.5-5.1); Sodium 139 mmol/L (136-145); Total Bilirubin 0.3 mg/dL (0.15-1.2); Total Protein 6.8 g/dL (6.6-8.7)
[2023-10-19] MEDS: pembrolizumab 200 MG in sodium chloride 0.9% 250 ML 516 MG IV (13:50)
[2023-10-19 14:20] VITALS: BP 116/77; PULSE 88; RESP 16; TEMP 36.4; O2SAT 98
== END 2023-10-19 23:59 | disposition home or self-care (01) ==
PROVIDERS: Nurse Practitioner Family; PCP Electrodiagnostic Medicine; Visit Provider Internal Medicine Medical Oncology
DX: D50.9 Iron deficiency anemia, unspecified (principal); Z53.9 Procedure and treatment not carried out, unspecified reason; Z51.12 Encounter for antineoplastic immunotherapy; C43.61 Malignant melanoma of right upper limb, including shoulder; R53.83 Other fatigue; Z79.899 Other long term (current) drug therapy
CPT/HCPCS: 80053; 82728; 83540; 83550; 84443; 85025; 96413; A4222; J7050; J9271

== ENCOUNTER 2023-11-09 11:47 | Oncology outpatient (recurring) (ONCR) | payer BC, MEDICAID, SELFPAY ==
[2023-11-09 12:30] LABS: Basophils # 0.1 10^3/uL (0.0-0.1); Eosinophils # 0.8 10^3/uL (0.0-0.8); Eosinophils % 8.9 %; Hematocrit 40.8 % (36-47); Lymphocytes # 2.3 10^3/uL (0.8-4.8); Lymphocytes % 24.1 %; Mean Corpuscular HGB Conc 33.1 g/dL (30-55); Mean Corpuscular Hemoglobin 29.3 pg (27-33); Mean Corpuscular Volume 88.5 fl (85-98); Mean Platelet Volume 10.6 fL (7.4-10.4); Monocytes # 0.6 10^3/uL (0.2-0.9); Monocytes % 5.9 %; Neutrophils % 59.9 %; Nucleated Red Blood Cells % 0 %; Platelet Count 164 10^3/cmm (157-399); Red Blood Count 4.61 10^6/uL (3.85-5.65); Red Cell Distribution Width 13.8 % (12.1-15.1); White Blood Count 9.34 10^3/uL (3.29-11.43)
[2023-11-09 13:04] LABS: Alanine Aminotransferase 77 U/L (0-33); Albumin Level 4.1 g/dL (3.5-5.2); Alkaline Phosphatase 196 U/L (35-105); Anion Gap 14.1 (5-19); Aspartate Amino Transferase 44 U/L (0-32); Blood Urea Nitrogen 9 mg/dL (6-20); Carbon Dioxide 26 mmol/L (22-29); Chloride 102 mmol/L (98-107); Creatinine Clr Calc Pharmacy 82.8951; Globulin 2.6 g/dL (1.3-4.6); Glomerular Filtration Rate 86.2 mL/min (90-130); Glucose 156 mg/dL (65-115); Osmolality Calculated 288 mOsm/kg (285-295); Potassium 4.1 mmol/L (3.5-5.1); Sodium 138 mmol/L (136-145); Total Bilirubin 0.2 mg/dL (0.15-1.2); Total Protein 6.7 g/dL (6.6-8.7)
[2023-11-09] MEDS: pembrolizumab 200 MG in sodium chloride 0.9% 250 ML 516 MG IV (14:28)
[2023-11-09 15:01] VITALS: BP 138/92; PULSE 83; RESP 16; TEMP 36.8; O2SAT 98
== END 2023-11-09 23:59 | disposition home or self-care (01) ==
PROVIDERS: Nurse Practitioner Family; PCP Electrodiagnostic Medicine; Visit Provider Internal Medicine Medical Oncology
DX: C43.61 Malignant melanoma of right upper limb, including shoulder; Z51.12 Encounter for antineoplastic immunotherapy; D50.9 Iron deficiency anemia, unspecified; C82.90 Follicular lymphoma, unspecified, unspecified site
CPT/HCPCS: 80053; 84443; 85025; 96413; A4222; J7050; J9271

== ENCOUNTER 2023-11-30 09:27 | Oncology outpatient (recurring) (ONCR) | payer BC, MEDICAID, SELFPAY ==
[2023-11-30 09:56] LABS: Basophils # 0.1 10^3/uL (0.0-0.1); Basophils % 0.9 %; Eosinophils % 11.3 %; Hematocrit 41.3 % (36-47); Lymphocytes # 2.5 10^3/uL (0.8-4.8); Lymphocytes % 28.7 %; Mean Corpuscular HGB Conc 33.2 g/dL (30-55); Mean Corpuscular Hemoglobin 29.8 pg (27-33); Mean Corpuscular Volume 89.8 fl (85-98); Mean Platelet Volume 10.5 fL (7.4-10.4); Monocytes # 0.5 10^3/uL (0.2-0.9); Monocytes % 5.8 %; Neutrophils # 4.54 10^3/uL (1.8-7.7); Neutrophils % 53.1 %; Nucleated Red Blood Cells % 0 %; Platelet Count 157 10^3/cmm (157-399); Red Cell Distribution Width 13.2 % (12.1-15.1); White Blood Count 8.57 10^3/uL (3.29-11.43)
[2023-11-30 10:14] LABS: Alanine Aminotransferase 44 U/L (0-33); Albumin Level 4.1 g/dL (3.5-5.2); Alkaline Phosphatase 179 U/L (35-105); Anion Gap 13.2 (5-19); Aspartate Amino Transferase 32 U/L (0-32); Blood Urea Nitrogen 12 mg/dL (6-20); Calcium 9.1 mg/dL (8.5-10.5); Carbon Dioxide 25 mmol/L (22-29); Chloride 105 mmol/L (98-107); Globulin 2.1 g/dL (1.3-4.6); Glomerular Filtration Rate 73.9 mL/min (90-130); Glucose 108 mg/dL (65-115); Osmolality Calculated 288 mOsm/kg (285-295); Potassium 4.2 mmol/L (3.5-5.1); Sodium 139 mmol/L (136-145); Total Bilirubin 0.2 mg/dL (0.15-1.2); Total Protein 6.2 g/dL (6.6-8.7)
[2023-11-30] MEDS: pembrolizumab 200 MG in sodium chloride 0.9% 250 ML 516 MG IV (12:31)
[2023-11-30 13:15] VITALS: BP 143/87; PULSE 96; RESP 16
== END 2023-11-30 23:59 | disposition home or self-care (01) ==
PROVIDERS: Nurse Practitioner Family; PCP Electrodiagnostic Medicine; Visit Provider Internal Medicine Medical Oncology
DX: C43.61 Malignant melanoma of right upper limb, including shoulder; Z51.12 Encounter for antineoplastic immunotherapy; Z79.899 Other long term (current) drug therapy
CPT/HCPCS: 80053; 85025; 96413; A4222; J7050; J9271

== ENCOUNTER 2024-01-07 13:24 | Outpatient (CLI) | payer BC, MEDICAID, SELFPAY ==
--- NOTE | 2024-01-07 13:30 | PETR_ITS ---
PROCEDURE INFORMATION: Exam: PET/CT Whole Body Exam date and time: 01/07/2024 2:29 PM Age: 58 years old Clinical indication: Condition or disease; Primary cancer: Melanoma, follicular lymphoma; Follow-up oncological assessment; Additional info: Melanoma of right upper arm LABS AND CLINICAL REPORTS: Glucose: 99 mg/dl Treatment strategy for malignancy (PET staging): Restaging (PS) TECHNIQUE: Imaging protocol: Following at least four-hour fasting and following the injection of radiopharmaceutical, low dose CT images were obtained. Then, PET images were obtained. Attenuation corrected images were constructed using the CT scan. Fused images of PET and CT were reviewed. The standardized uptake values (SUV) reported below are maximum values within a region of interest, expressed in gm/ml. Exam includes the whole body. Radiopharmaceutical: 10.31 mCi F-18 FDG (Fluorodeoxyglucose), IV. Time of imaging post radiopharmaceutical administration: 51 minutes Injection site: Right antecubital COMPARISON: PT PET WB melanoma SUBSEQ [id number] 06/15/2023 8:46 AM FINDINGS: Tubes, catheters and devices: Right chest port terminates near the superior cavoatrial junction. Brain: Visualized brain has normal physiologic uptake. Pharynx: No abnormal uptake. Larynx: No abnormal uptake. Lungs, pleura and trachea: No abnormal uptake. Heart: Normal physiologic uptake. Mediastinal space: No abnormal uptake. Diaphragm: Large hiatal hernia. Liver: No abnormal uptake. Gallbladder and biliary ducts: No abnormal uptake. Pancreas: No abnormal uptake. Spleen: Enlarged with diffusely increased FDG uptake, measuring 14.5 cm in maximal dimension with SUV max 5.3, previously 11.7 cm in maximal dimension. Adrenal glands: No abnormal uptake. Kidneys and ureters: Normal physiologic uptake. Stomach and bowel: No abnormal uptake. Vasculature: No abnormal uptake. Mild systemic atherosclerotic calcification without aortic aneurysm. Lymph nodes: Progression of diffuse FDG avid lymphadenopathy throughout the neck, chest, abdomen and pelvis with grossly stable size left supraclavicular lymphadenopathy showing increased FDG uptake with SUV max 11.0 on axial image 99 (previously 3.2), stable size right axillary lymphadenopathy with index node showing SUV max 9.8 on axial image 130 (previously 1.1), increased size lower right paratracheal node measuring 1.5 cm on axial image 123 showing SUV max 8.5 (previously 0.8 cm with SUV max 1.1), left retroperitoneal para-aortic node measuring 1.2 cm in the short axis on axial image 205 showing SUV max 9.4, right iliac node measuring 1.6 cm in the short axis on axial image 248 showing SUV max 12.4, left external iliac node measuring 1.7 cm in the short axis on axial image 273 showing SUV max 12.1, and right inguinal node measuring 1.2 cm in the short axis on axial image 291 showing SUV max 12.7. There has also been development of FDG avid paraspinal soft tissue thickening with extension into the right T10-11 neural foramen on axial image 168, SUV max in this region measures 13.3. Skeleton: No abnormal uptake in the visualized axial and appendicular skeleton. Soft tissues: No abnormal uptake in the visualized head, neck, chest, abdomen, pelvis, and extremities. Small fat containing umbilical hernia. METRICS: Mediastinal blood pool: SUV max 2.7 Liver uptake: SUV max 4.6 PET/PET WB melanoma SUBSEQ [id number] IMPRESSION: Deauville 5 progressive disease with interval progression of diffuse FDG avid lymphadenopathy throughout the neck, chest, abdomen and pelvis as well as developed diffusely FDG avid splenomegaly and bilateral FDG avid paraspinal soft tissue thickening with extension into the right T10-11 neural foramen.
== END 2024-01-07 13:25 | disposition home or self-care (01) ==
PROVIDERS: PCP Electrodiagnostic Medicine; Visit Provider Internal Medicine
DX: C43.61 Malignant melanoma of right upper limb, including shoulder (principal); R93.89 Abnormal findings on diagnostic imaging of other specified body structures; R16.1 Splenomegaly, not elsewhere classified
CPT/HCPCS: 78816; A9552

== ENCOUNTER 2024-01-20 13:00 | Oncology outpatient (recurring) (ONCR) | payer BC, MEDICAID, SELFPAY ==
[2024-01-20] MEDS: pembrolizumab 200 MG in sodium chloride 0.9% 250 ML 516 MG IV (14:04)
== END 2024-01-20 23:59 | disposition home or self-care (01) ==
PROVIDERS: PCP Electrodiagnostic Medicine; Visit Provider Nurse Practitioner Family
DX: Z53.9 Procedure and treatment not carried out, unspecified reason (principal); Z51.12 Encounter for antineoplastic immunotherapy; C43.61 Malignant melanoma of right upper limb, including shoulder; C82.98 Follicular lymphoma, unspecified, lymph nodes of multiple sites; R22.2 Localized swelling, mass and lump, trunk; Z79.899 Other long term (current) drug therapy
CPT/HCPCS: 78816; 96413; A4222; A9552; J7050; J9271

== ENCOUNTER 2024-02-17 08:15 | Oncology outpatient (recurring) (ONCR) | payer BC, MEDICAID, SELFPAY ==
--- NOTE | 2024-02-01 16:45 | MR_ITS ---
WS: [id number] MRI THORACIC SPINE with and without contrast HISTORY: melanoma, patient has known progressive metastatic disease as noted on the PET/CT of 01/07/20 COMPARISON: PET/CT 01/07/2024 TECHNIQUE: Multiplanar sequences are performed in sagittal and axial planes. MultiHance 13 mL. Significantly enlarged axillary, mediastinal and hilar lymph nodes are reidentified. These were descr ibed by recent PET/CT also. Largest lymph node is subcarinal measuring about 2.0 cm. No signal changes within the vertebral bodies or enhancement. Disc spaces are well-maintained. Signal within the cord is normal. There is no atrophy or enlargement. No enhancement. T1-2: No stenosis. T2-3: No stenosis. T3-4: Mild facet arthritis. No stenosis. T4-5: No stenosis. Paravertebral soft tissue thickening with mild enhancement is beginning at the mid T5 vertebral body level. T5-6: No central stenosis. Minimal soft tissue thickening with enhancement around the vertebral body. T6-7: No central stenosis. Slight increase in the extent of paravertebral soft tissue enhancement whi ch encases the vertebral body. No extension into the foramen. T7-8: No central stenosis. Paravertebral soft tissue thickening and a small amount of pleural fluid. No tumor extension into the foramina. T8-9: No central stenosis. Increasing paravertebral soft tissue thickening. Soft tissue thickening co nsistent with tumor measures up to 1.2 cm on the RIGHT. There is extension to involve the pleura. Rufus plastic soft tissue does extend to involve the far lateral foramina. T9-10: No central stenosis. Continued contiguous paravertebral soft tissue thickening with pleural in volvement. There is enhancement extending into the foramina, RIGHT greater than LEFT. Complete obscur ation of the nerve roots on the RIGHT and partial on the LEFT. T10-11: Increasing contiguous paravertebral soft tissue thickening measuring up to 1.5 cm. Soft tissu e tumor extends into the foramina and there is contact on the RIGHT lateral thecal sac and dura. Less er involvement on the LEFT. There is deformity and mass effect upon the RIGHT lateral thecal sac. The re is partial tumor encasement of the descending aorta. T11-12: No central stenosis. Circumferential soft tissue tumor with enhancement surrounding the verte bral bodies and extending into the foramina. Less contact on the thecal sac. T12-L1: No stenosis. Paravertebral enhancing neoplastic tumor does appear to terminate at the T12 lev el. MR/MR thoracic spine wo/w [id number] IMPRESSION: 1. Patient has known metastatic melanoma as previously noted on PET/CT. 2. There is extensive paravertebral soft tissue metastatic disease beginning a t the level of T4-5 and extending through T12. Slightly greater tumor involveme nt on the RIGHT with tumor diameter measuring up to 1.5 cm, most significant at T10-11. 3. T10-11: Tumor extension not only encases the vertebral bodies but extends i nto the foramina greatest on the RIGHT and contact and slight deformity of the RIGHT lateral thecal sac and dura. No high-grade cord compression at this time. 4. T11-12: Continued tumor extending into the foramina with less burden as com pared to the T10-11 level. 5. T9-10: Tumor extends to involve the far lateral foramina and nerve roots. 6. Paravertebral neoplasm extends to involve the pleura bilaterally. 7. Partial tumor encasement of the aorta. 8. Known metastatic axillary, hilar or mediastinal adenopathy.
[2024-02-01] MEDS: gadobenate dimeglumine 20 mL vial 13 ML IV (17:28)
[2024-02-03 08:19] LABS: Basophils # 0.1 10^3/uL (0.0-0.1); Basophils % 0.9 %; Eosinophils # 1.1 10^3/uL (0.0-0.8); Eosinophils % 11.7 %; Hematocrit 36.4 % (36-47); Lymphocytes # 3.3 10^3/uL (0.8-4.8); Lymphocytes % 35.5 %; Mean Corpuscular HGB Conc 33.8 g/dL (30-55); Mean Corpuscular Hemoglobin 30.2 pg (27-33); Mean Corpuscular Volume 89.4 fl (85-98); Mean Platelet Volume 10.1 fL (7.4-10.4); Monocytes # 0.6 10^3/uL (0.2-0.9); Monocytes % 6.2 %; Neutrophils # 4.28 10^3/uL (1.8-7.7); Neutrophils % 45.5 %; Nucleated Red Blood Cells % 0 %; Platelet Count 161 10^3/cmm (157-399); Red Blood Count 4.07 10^6/uL (3.85-5.65); Red Cell Distribution Width 13.1 % (12.1-15.1); Reticulocyte % 2.4 % (0.5-2.0); White Blood Count 9.39 10^3/uL (3.29-11.43)
[2024-02-03 08:33] LABS: Erythrocyte Sedimentation Rate 2 mm/hr (0-15)
[2024-02-03 08:38] LABS: Alanine Aminotransferase 26 U/L (0-33); Albumin Level 4.2 g/dL (3.5-5.2); Alkaline Phosphatase 152 U/L (35-105); Aspartate Amino Transferase 24 U/L (0-32); Blood Urea Nitrogen 12 mg/dL (6-20); Calcium 9.3 mg/dL (8.5-10.5); Carbon Dioxide 24 mmol/L (22-29); Chloride 104 mmol/L (98-107); Creatinine Clr Calc Pharmacy 71.3942; Globulin 1.9 g/dL (1.3-4.6); Glomerular Filtration Rate 73.9 mL/min (90-130); Glucose 98 mg/dL (65-115); Immunoglobulin IGA 54 mg/dL (70-400); Immunoglobulin IGG 733 mg/dL (700-1600); Immunoglobulin IGM 57 mg/dL (40-230); Lactate Dehydrogenase 230 U/L (135-214); Osmolality Calculated 288 mOsm/kg (285-295); Sodium 139 mmol/L (136-145); Total Bilirubin 0.3 mg/dL (0.15-1.2); Total Protein 6.1 g/dL (6.6-8.7)
--- NOTE | 2024-02-03 13:37 | N.ONRAD NP_ITS ---
Radiation Oncology New Patient Visit Patient: Ange Burrell MR#: [id number] : 1965> Age: 58> Sex: Female> Dictated by: Dr. Blaire Ruiz Date of Service: 02/03/2024 Referring Physician(s) : sha Diagnosis: Melanoma, follicular lymphoma Radiotherapy to date: Summary > No prior radiation therapy. Chief Complaint / History of Present Illness: Patient is a 58-year-old lady who was actually diagnosed in November of last year with a melanoma on her arm. She had 2 surgeries for this. She had a nodes sampled as well. The janes disease was found to be follicular lymphoma low-grade. She had a PET scan at that time that described adenopathy really throughout her entire system as well as paravertebral thickening and increased activity in tissues that extended from the mediastinum down through the upper abdomen. She was started in March on Keytruda and had completed 12 courses. She had a PET scan in May which showed that the SUV activity had decreased in all of the areas. Her next PET scan however in December showed an increase in SUV activity as well as some progression of the disease in the paravertebral area. Specifically there was extension of the paravertebral abnormality at the T10-T11 area into the foraminal canal. She is seen today in consultation to discussed the abnormality in the T10-T11 area. Subjectively she has no complaints today. She has no focal symptoms related to any of the disease. Current Medications: Home Medications Home Medications - Last Reconciled 02/03/24 by Aman Falcon docusate sodium (Colace) 100 mg PO DAILY PRN ondansetron HCl 4 mg PO Q8H PRN pantoprazole 40 mg PO BID 6 weeks pantoprazole 20 mg PO BID pembrolizumab IV triamcinolone acetonide 0.05% 1 applic topical BID Allergies: No Known Allergies Medical History: Iron deficiency anemia Follicular lymphoma Hiatal hernia Urolithiasis Surgical History: Hx of melanoma excision 01/25/23 Wide local excision of malignant melanoma right arm with Dr Jordan S/P extracorporeal shock wave therapy Family History: Family History Mother Cancer lung Social History: Smoking and tobacco/nicotine status: former use of tobacco/nicotine (2023) Quit status (tobacco/nicotine): has quit using Year quit tobacco: 2022 Former quit date comment: 20 years total use Alcohol intake: never Substance/Drug Use: never Marital status: Current occupational status: unemployed Dietary Habits Caffeine: Yes Caffeine intake frequency: carbonated beverages Current Complaints / Review of Systems: . Vital Signs: Performed on 02/03/2024 9:40 AM BMI - 24.134 kg/m2 (high), Height - 64 in, Weight - 140.6 lbs, Temperature - 98.1 f, Pulse - 104 /min (high), Respiration - 17 /min, O2 Sat - 98 %, Pain - 0, Fatigue - 0 and BP - 155/ 104 mm(hg)(high). Physical Exam: General Patient is in no apparent distress although she is quite anxious today HEENT normocephalic atraumatic. Pupils are equal, sclera clear, extraocular muscles intact. Pulmonary: Respiratory rate is regular nonlabored, lungs were clear to auscultation Cardiovascular: Regular rate and rhythm Abdomen: Patient is actually fairly thin with minimal adipose tissue Extremities: No edema or lymphedema is noted in the upper extremities Neurological: Alert and orient x 3. Gait and speech within normal limits Psych: Affect appropriate for current situation Performance Status: 100 Pathology: Impression: 58-year-old lady with a history of melanoma and active follicular low-grade lymphoma Plan: I reviewed the findings on all of her scans from the first PET scan in March through May and the most recent in December. We discussed how the activity had changed. She has completed 12 rounds of Keytruda. At this point she is asymptomatic but there is concern for the disease that extends into the spinal canal. We talked about a low-dose and short course of radiation as lymphomas are generally quite sensitive to radiation. I reviewed with her the simulation process. We discussed the daily treatment regiment. We reviewed the risks and side effects both acute and long-term. At this point we can get a 1 week course done prior to her next Keytruda. She will also meet with Dr. Pérez next week to discuss additional therapy options. At this point she was in agreement and we will have her undergo simulation today and will start her treatments next week. Signed by: 02/03/2024 1:35:00 PM <<Signature on File>> Time spent with patient:45 CPT Code: CPT Code:
[2024-02-04 10:24] LABS: PROTEIN, TOTAL 6.1 g/dL (6.1-8.1)
[2024-02-04 11:24] LABS: Beta-2-Microglobulin 5.27 mg/L (< OR = 2.51)
[2024-02-07 19:55] LABS: ALBUMIN 3.9 g/dL (3.8-4.8); ALPHA 1 GLOBULIN 0.3 g/dL (0.2-0.3); ALPHA 2 GLOBULIN 0.6 g/dL (0.5-0.9); BETA 1 GLOBULIN 0.4 g/dL (0.4-0.6); BETA 2 GLOBULIN 0.3 g/dL (0.2-0.5); GAMMA GLOBULIN 0.6 g/dL (0.8-1.7)
--- NOTE | 2024-02-08 11:29 | ONCRAD TMN_ITS ---
Radiation Oncology Weekly Treatment Management Patient: Ange Burrell MR#: [id number] : 1965 Attending Physician: Dr. Blaire Ruiz Date of Service: 02/08/2024 Fractions: 1 out of 5 Referring Physician(s) : Diagnosis: C82.03 - Follicular lymphoma grade i, intra-abdominal lymph nodes, Diagnosed 02/03/2024 (Active) C82.02 - Follicular lymphoma grade i, intrathoracic lymph nodes, Diagnosed 02/03/2024 (Active) Radiotherapy to date: Course: T/L spine, Treatment Site: Spine 15Gy, Ref. ID: [id number], Energy: 15X, Dose/Fx (cGy): 300, #Fx: , Dose Correction (cGy): 0, Total Dose Delivered (cGy): 300, Start Date: 02/08/2024, Elapsed Days: 0 Reason for visit: The patient is being seen today as part of their regularly scheduled weekly on treatment visits to assess for acute toxicities from radiotherapy. Review of Systems: Patient has had no complaints today. She has no symptoms. Vital Signs: Performed on 02/08/2024 10:31 AM BMI - 24.134 kg/m2 (high), Height - 64 in, Weight - 140.6 lbs, Temperature - 97.8 f, Pulse - 94 /min, Respiration - 18 /min, O2 Sat - 96 %, Pain - 0, Fatigue - 0 and BP - 144/ 92 mm(hg)(high). Physical Exam: No changes on exam Imaging: Radiation therapy imaging related to accurate target localization (i.e. KV, MV and CBCT) was reviewed. Appropriate changes, if any, were made to ensure treatment accuracy. Plan: Will continue with her treatments as planned. I did review with her the possible side effect she may have the week after treatment Signed by: Dr. Blaire Ruiz 02/08/2024 11:28:45 AM
--- NOTE | 2024-02-15 12:36 | N.ONRD TS_ITS ---
Radiation Oncology Treatment Summary Patient: Ange Burrell MR#: [id number] : 1965 Age: 58 Sex: Female Dictated by: Dr. Blaire Ruiz Date of Service: 02/15/2024 Referring Physician(s) : Diagnosis: C82.03 - Follicular lymphoma grade i, intra-abdominal lymph nodes, Diagnosed 02/03/2024 (Active) C82.02 - Follicular lymphoma grade i, intrathoracic lymph nodes, Diagnosed 02/03/2024 (Active) Radiotherapy to Date: Course: T/L spine, Treatment Site: Spine 15Gy, Ref. ID: [id number], Energy: 15X, Dose/Fx (cGy): 300, #Fx: 5 / 5, Dose Correction (cGy): 0, Total Dose Delivered (cGy): 1,500, Start Date: 02/08/2024, End Date: 02/15/2024, Elapsed Days: 7 Clinical Summary: The patient tolerated RT well. She essentially had no ill effects from the treatment Plan: End of treatment today. Continue on the above medication until the skin reaction resolves. Follow up in one month. MO appt with Dr. Chadwick on 02/17/24. Signed by: Dr. Blaire Ruiz>02/15/2024 12:34:31 PM <<Signature on File>>
[2024-02-17 08:44] LABS: Basophils # 0.1 10^3/uL (0.0-0.1); Basophils % 1.6 %; Eosinophils # 0.7 10^3/uL (0.0-0.8); Eosinophils % 12.7 %; Hematocrit 40.1 % (36-47); Lymphocytes # 1.4 10^3/uL (0.8-4.8); Lymphocytes % 24.5 %; Mean Corpuscular HGB Conc 32.4 g/dL (30-55); Mean Corpuscular Volume 89.5 fl (85-98); Mean Platelet Volume 9.8 fL (7.4-10.4); Monocytes # 0.7 10^3/uL (0.2-0.9); Monocytes % 12.1 %; Neutrophils # 2.69 10^3/uL (1.8-7.7); Neutrophils % 48.7 %; Nucleated Red Blood Cells % 0 %; Platelet Count 169 10^3/cmm (157-399); Red Blood Count 4.48 10^6/uL (3.85-5.65); Red Cell Distribution Width 13.3 % (12.1-15.1); White Blood Count 5.52 10^3/uL (3.29-11.43)
[2024-02-17 09:10] LABS: Alanine Aminotransferase 23 U/L (0-33); Albumin Level 4.1 g/dL (3.5-5.2); Alkaline Phosphatase 143 U/L (35-105); Anion Gap 11.6 (5-19); Aspartate Amino Transferase 19 U/L (0-32); Blood Urea Nitrogen 15 mg/dL (6-20); Calcium 9.4 mg/dL (8.5-10.5); Carbon Dioxide 27 mmol/L (22-29); Chloride 102 mmol/L (98-107); Creatinine Clr Calc Pharmacy 93.8962; Globulin 2.5 g/dL (1.3-4.6); Glucose 104 mg/dL (65-115); Lactate Dehydrogenase 199 U/L (135-214); Osmolality Calculated 283 mOsm/kg (285-295); Potassium 4.6 mmol/L (3.5-5.1); Sodium 136 mmol/L (136-145); Total Bilirubin 0.3 mg/dL (0.15-1.2); Total Protein 6.6 g/dL (6.6-8.7)
[2024-02-17 09:24] LABS: Hepatitis A Antibody IgM Non-Reactive (Nonreactive); Hepatitis B Core AB, Total Non-Reactive (Nonreactive); Hepatitis B Surface AB < 3.5 (11.5-1000); Hepatitis B Surface Antigen Non-Reactive (Nonreactive); Hepatitis C Virus Antibody Non-Reactive (Nonreactive)
[2024-02-17] MEDS: pembrolizumab 200 MG in sodium chloride 0.9% 250 ML 516 MG IV (10:49)
[2024-02-17 11:31] VITALS: BP 114/61; PULSE 92; RESP 16; TEMP 36.6; O2SAT 97
== END 2024-02-17 23:59 | disposition home or self-care (01) ==
PROVIDERS: Internal Medicine; Internal Medicine Medical Oncology; PCP Electrodiagnostic Medicine; Visit Provider Radiology Radiation Oncology
DX: Z53.9 Procedure and treatment not carried out, unspecified reason; Z51.12 Encounter for antineoplastic immunotherapy; Z51.0 Encounter for antineoplastic radiation therapy; C82.18 Follicular lymphoma grade II, lymph nodes of multiple sites; C79.51 Secondary malignant neoplasm of bone
CPT/HCPCS: 72157; 77290; 77295; 77300; 77334; 77336; 77387; 77412; 80053; 82232; 82784; 83010; 83615; 84155; 84165; 84443; 85025; 85045; 85651; 86705; 86706; 86709; 86803; 87340; 96413; 99024; 99205; A4222; J7050; J9271

== ENCOUNTER 2024-02-22 07:52 | Day surgery (SDC) | payer BC, MEDICAID, SELFPAY ==
[2024-02-22] VITALS (13 sets, daily range): BP systolic 92–126; BP diastolic 63–96; PULSE 80–100; RESP 14–23; TEMP 36.1–36.8; O2SAT 93–98; BMI 23.3
--- NOTE | 2024-02-22 08:16 | W.PM.OPSUD ---
Surgery/Procedure H&P Update DATE OF PROCEDURE: February 22, 2024 DATE H&P PERFORMED: 02/09/23 H&P UPDATE INFORMATION: I have reviewed H&P completed within last 30 days, I have examined patient prior to procedure and No changes to prior documentation PLANNED PROCEDURE: Operation Date: 02/22/24 09:20 Proposed Procedures p Excisional lymph node biopsy left axilla 32578, C43.61, C82.98, R22.2(Left) - Juan Carlos Jordan DO
[2024-02-22] MEDS: sodium chloride 0.9% 1,000 ML 30 ML IV (08:40)
--- NOTE | 2024-02-22 09:07 | P.ANESASSM_ITS ---
Pre-Anesthetic Assessment Height/Weight: Height 5 ft 4 in Weight 136 lb Temp Pulse Resp BP Pulse Ox O2 Del Method 98.2 F 100 16 92/63 97 Room Air 02/22/24 08:13 02/22/24 08:13 02/22/24 08:13 02/22/24 08:13 02/22/24 08:13 02/22/24 08:21 Preop Diagnosis: Lymphadenopathy Operation Date: 02/22/24 09:20 Proposed Procedures p Excisional lymph node biopsy left axilla 33218, C43.61, C82.98, R22.2(Left) - Juan Carlos Jordan DO Was Beta Nevaeh taken within 24 hours: N/A Was Clonidine taken within 24 hours: N/A Last intake: Intake Last Liquid Date 02/21/24 Last Liquid Time 22:30 Last Solid Date 02/21/24 Last Solid Time 22:30 Social No alcohol and No tobacco Quit smoking 1 year ago Exam alert, oriented x 3, clear to auscultation bilaterally and regular rate & rhythm Airway Submandibular: within normal limits Cervical ROM: within normal limits Mallampati: Class II Dentition: false Anesthetic Plan ASA status: 3 Anesthesia: General Other: No prior issues with anesthesia NPO since yesterday GERD on Protonix History of melanoma and follicular lymphoma. completed Chemo 1 week ago Preop BP 92/63 Labs 02/17/2024 reviewed and acceptable for procedure Plan for general anesthetic Medications/Allergies Home Medications Medication Instructions Recorded Confirmed Last Taken Type pembrolizumab 50 mg intravenous IV 05/24/23 02/21/24 Unknown History solution ondansetron HCl 4 mg tablet 4 mg PO Q8H PRN nausea and 06/18/23 02/21/24 Unknown Rx vomiting #30 tabs pantoprazole 40 mg tablet,delayed 40 mg PO BID 6 weeks #84 tabs 08/16/23 02/21/24 Unknown Rx release pantoprazole 40 mg tablet,delayed 40 mg PO BID 30 days #60 tabs 02/21/24 02/21/24 Unknown Rx release (Protonix) Allergies Allergy/AdvReac Type Severity Reaction Status Date / Time No Known Allergies Allergy Verified 02/21/24 13:02 [facility] Anesthesia Medical History Iron deficiency anemia Follicular lymphoma Hiatal hernia Urolithiasis Surgical History Hx of melanoma excision 01/25/23 Wide local excision of malignant melanoma right arm with Dr Jordan S/P extracorporeal shock wave therapy Family History Mother Cancer lung Social History Smoking and tobacco/nicotine status: former use of tobacco/nicotine (2022) Quit status (tobacco/nicotine): has quit using Year quit tobacco: 2022 Former quit date comment: 20 years total use Alcohol intake: never Substance/Drug Use: never Marital status: Current occupational status: unemployed Data Anesthesia Cardiac Studies: No Data to Display
[2024-02-22] MEDS: ceFAZolin 2,000 mg SDV 2000 MG IVP (10:20)
[2024-02-22] MEDS: lidocaine-epi 2% PF 1:200,000 20 mL SDV 10 ML INJECTION (10:43)
--- NOTE | 2024-02-22 11:54 | PM.OP ---
Operative Report Date of procedure: February 22, 2024 Surgeon: Juan Carlos Jordan DO Brief History: This is a very pleasant 58-year-old female who underwent a wide local excision of the malignant melanoma earlier this year along with sentinel lymph node biopsy. [place] lymph nodes came back 2 out of 3 positive for lymphoma and not melanoma. She saw oncology and underwent treatment but since has developed fairly extensive lymphadenopathy. There are palpable lymph nodes in her left groin and oncology requested excisional biopsy. The risks and benefits were explained and documented. Procedure: Pre-op diagnosis: Left inguinal lymphadenopathy History of malignant melanoma History of lymphoma Post-op diagnosis: same Procedure done: Excision of deep left inguinal lymph node (96365) Specimens removed/disposition: Lymph node were lymphoma protocol Surgeon: Juan Carlos Jordan DO Anesthesia: General and Local Estimated blood loss (mL): 5 Complications: None apparent Procedure: Patient was wheeled operative room placed on the OR table in the supine position. General anesthesia was performed via an LMA by the department anesthesia. A timeout was performed. All present were in agreement. 2% lidocaine with epinephrine was used to anesthetize the area over the lymphadenopathy. A 15 blade scalpel was used to make an oblique incision over the area of most significant lymphadenopathy. Electrocautery was used dissect down through the dermis and subcutaneous tissue down to the deep groin. A lymph node was palpated and grasped with Allis clamp. Meticulous dissection was performed around this large lymph node using electrocautery and blunt dissection. All blood and lymphatic vessels were clipped with medium clipped or tied off with 3-0 silk. Lymph node was successfully from the surrounding tissue and sent to pathology lymphoma protocol. The area was irrigated and suctioned. There was minimal bleeding. Dermis was approximated with 3-0 Vicryl. Skin was closed with Dermabond. Patient tolerated procedure well.
--- NOTE | 2024-02-24 12:25 | ANE.PACU2 ---
Inpatient post-anesthesia follow up: Airway intact: Yes Vital signs: Temperature 97.9 F Pulse Rate 87 Respiratory Rate 16 Blood Pressure 115/84 Pulse Oximetry 98 Oxygen Delivery Me thod Room Air Oxygen Flow Rate Fraction of Inspir ed Oxygen Hydration adequate: Yes Nausea and vomiting: No Pain level: 1 Mental status: Baseline
[2024-02-24 13:43] LABS: Lymphoma Profile (BBPL) See Report
== END 2024-02-22 12:25 | disposition home or self-care (01) ==
PROVIDERS: PCP Electrodiagnostic Medicine; Visit Provider Surgery
PROC: (CPT 38525; principal; 2024-02-22 09:20)
DX: C82.15 Follicular lymphoma grade II, lymph nodes of inguinal region and lower limb (principal); K21.9 Gastro-esophageal reflux disease without esophagitis; Z87.891 Personal history of nicotine dependence
CPT/HCPCS: 38525; 87015; 87070; 87102; 87116; 87176; 87205; 87206; 87801; 88184; 88185; 88307; 88342; J0690; J1100; J2405; J2704; J3010; J7030

== ENCOUNTER 2024-03-09 13:00 | Oncology outpatient (recurring) (ONCR) | payer BC, MEDICAID, SELFPAY ==
[2024-03-02 08:36] LABS: Basophils % 0.2 %; Eosinophils # 0.9 10^3/uL (0.0-0.8); Eosinophils % 17.2 %; Hematocrit 34.5 % (36-47); Lymphocytes # 0.9 10^3/uL (0.8-4.8); Lymphocytes % 16.2 %; Mean Corpuscular HGB Conc 33.3 g/dL (30-55); Mean Corpuscular Hemoglobin 29.4 pg (27-33); Mean Corpuscular Volume 88.2 fl (85-98); Mean Platelet Volume 9.6 fL (7.4-10.4); Monocytes # 0.6 10^3/uL (0.2-0.9); Monocytes % 10.8 %; Neutrophils # 2.97 10^3/uL (1.8-7.7); Neutrophils % 55.4 %; Nucleated Red Blood Cells % 0 %; Platelet Count 140 10^3/cmm (157-399); Red Blood Count 3.91 10^6/uL (3.85-5.65); Red Cell Distribution Width 13.5 % (12.1-15.1); White Blood Count 5.36 10^3/uL (3.29-11.43)
[2024-03-02 09:10] LABS: Alanine Aminotransferase 22 U/L (0-33); Albumin Level 3.8 g/dL (3.5-5.2); Alkaline Phosphatase 130 U/L (35-105); Anion Gap 13.1 (5-19); Aspartate Amino Transferase 22 U/L (0-32); Blood Urea Nitrogen 14 mg/dL (6-20); Calcium 9.3 mg/dL (8.5-10.5); Carbon Dioxide 24 mmol/L (22-29); Chloride 102 mmol/L (98-107); Creatinine Clr Calc Pharmacy 71.3109; Globulin 2.2 g/dL (1.3-4.6); Glomerular Filtration Rate 73.9 mL/min (90-130); Glucose 125 mg/dL (65-115); Lactate Dehydrogenase 186 U/L (135-214); Osmolality Calculated 282 mOsm/kg (285-295); Phosphorus 3.5 mg/dL (2.5-4.5); Potassium 4.1 mmol/L (3.5-5.1); Sodium 135 mmol/L (136-145); Total Bilirubin 0.2 mg/dL (0.15-1.2); Uric Acid 5.8 mg/dL (2.4-5.7)
[2024-03-03 04:54] LABS: PROTEIN, TOTAL 5.6 g/dL (6.1-8.1)
[2024-03-03 19:45] LABS: ALBUMIN 3.7 g/dL (3.8-4.8); ALPHA 1 GLOBULIN 0.3 g/dL (0.2-0.3); ALPHA 2 GLOBULIN 0.6 g/dL (0.5-0.9); BETA 1 GLOBULIN 0.3 g/dL (0.4-0.6); BETA 2 GLOBULIN 0.3 g/dL (0.2-0.5); GAMMA GLOBULIN 0.6 g/dL (0.8-1.7)
[2024-03-08] VITALS (16 sets, daily range): BP systolic 117–158; BP diastolic 75–101; PULSE 93–110; RESP 16–20; TEMP 36.6–37.6; O2SAT 95–99
[2024-03-08 08:21] LABS: Basophils % 0.5 %; Eosinophils % 17.9 %; Hematocrit 35.7 % (36-47); Lymphocytes % 17.6 %; Mean Corpuscular HGB Conc 32.8 g/dL (30-55); Mean Corpuscular Hemoglobin 28.9 pg (27-33); Mean Corpuscular Volume 88.1 fl (85-98); Mean Platelet Volume 9.7 fL (7.4-10.4); Monocytes # 0.6 10^3/uL (0.2-0.9); Monocytes % 9.8 %; Neutrophils # 3.07 10^3/uL (1.8-7.7); Nucleated Red Blood Cells % 0 %; Platelet Count 139 10^3/cmm (157-399); Red Blood Count 4.05 10^6/uL (3.85-5.65); Red Cell Distribution Width 13.5 % (12.1-15.1); White Blood Count 5.69 10^3/uL (3.29-11.43)
[2024-03-08 08:22] LABS: Reticulocyte % 2.2 % (0.5-2.0)
[2024-03-08 08:52] LABS: Erythrocyte Sedimentation Rate 3 mm/hr (0-15)
[2024-03-08 09:10] LABS: Alanine Aminotransferase 20 U/L (0-33); Albumin Level 3.9 g/dL (3.5-5.2); Alkaline Phosphatase 135 U/L (35-105); Anion Gap 14.1 (5-19); Aspartate Amino Transferase 18 U/L (0-32); Blood Urea Nitrogen 17 mg/dL (6-20); Calcium 9.3 mg/dL (8.5-10.5); Carbon Dioxide 23 mmol/L (22-29); Chloride 104 mmol/L (98-107); Creatinine Clr Calc Pharmacy 63.3874; Globulin 2.2 g/dL (1.3-4.6); Glomerular Filtration Rate 64.5 mL/min (90-130); Glucose 109 mg/dL (65-115); Lactate Dehydrogenase 189 U/L (135-214); Osmolality Calculated 286 mOsm/kg (285-295); Phosphorus 3.3 mg/dL (2.5-4.5); Potassium 4.1 mmol/L (3.5-5.1); Sodium 137 mmol/L (136-145); Total Bilirubin 0.2 mg/dL (0.15-1.2); Total Protein 6.1 g/dL (6.6-8.7)
[2024-03-08] MEDS: sodium chloride 0.9% 250 ML 75 ML IV (10:35)
[2024-03-08] MEDS: acetaminophen 325 mg Tablet 650 MG PO (10:37)
[2024-03-08] MEDS: dexamethasone 4 mg/mL INJ 5 mL 12 MG IVP (10:38)
[2024-03-08] MEDS: ondansetron 2 mg/ML SDV 2 mL 8 MG IVP (10:43)
[2024-03-08] MEDS: diphenhydrAMINE 50 mg/mL SDV 1mL 25 MG IVP ×2 (10:47→12:42)
[2024-03-08] MEDS: SODIUM CHLORIDE 0.9% IV ×2 (11:25→16:47)
[2024-03-08] MEDS: RITUXIMAB PVVR IV (11:25)
[2024-03-08] MEDS: methylPREDNISolone sod succ 125 mg/2 mL INJ IVP (12:41)
[2024-03-08] MEDS: meperidine 50 mg/mL INJ 25 MG IVP (12:48)
[2024-03-08] MEDS: sodium chloride 0.9% 1,000 ML 999 ML IV (12:50)
[2024-03-08] MEDS: BENDAMUSTINE IV (16:47)
[2024-03-09 07:30] LABS: Beta-2-Microglobulin 5.39 mg/L (< OR = 2.51)
[2024-03-09] MEDS: sodium chloride 0.9% 250 ML 75 ML IV (14:45)
[2024-03-09] MEDS: palonosetron 0.25 mg/5 mL SDV IVP (14:46)
[2024-03-09] MEDS: dexamethasone 4 mg/mL INJ 5 mL 12 MG IVP (14:49)
[2024-03-09] MEDS: BENDAMUSTINE IV (15:09)
[2024-03-09] MEDS: SODIUM CHLORIDE 0.9% IV (15:09)
[2024-03-09 15:28] VITALS: BP 116/79; PULSE 79; RESP 16; O2SAT 95
[2024-03-09] MEDS: pegfilgrastim 6 mg/0.6 mL Kit (onpro) SUBCUT (15:34)
== END 2024-03-09 23:59 | disposition home or self-care (01) ==
PROVIDERS: Internal Medicine; PCP Electrodiagnostic Medicine; Visit Provider Radiology Radiation Oncology
DX: C43.61 Malignant melanoma of right upper limb, including shoulder; Z53.9 Procedure and treatment not carried out, unspecified reason; Z51.11 Encounter for antineoplastic chemotherapy; Z79.52 Long term (current) use of systemic steroids; Z79.899 Other long term (current) drug therapy
CPT/HCPCS: 80053; 82232; 83010; 83615; 84100; 84155; 84165; 84550; 85025; 85045; 85651; 96375; 96377; 96413; 96415; 96417; J1100; J1200; J2175; J2405; J2469; J2506; J2919; J7030; J7040; J7050; J9034; Q5119

== ENCOUNTER 2024-03-15 08:56 | Day surgery (SDC) | payer BC, MEDICAID, SELFPAY ==
[2024-03-15 09:13] VITALS: BMI 24.0
[2024-03-15 09:25] VITALS: BP 112/78; PULSE 93; RESP 18; TEMP 37.1; O2SAT 97; BMI 24.0
--- NOTE | 2024-03-15 10:25 | P.ANESASSM_ITS ---
Pre-Anesthetic Assessment Height/Weight: Height 1.63 m Weight 63.503 kg Temp Pulse Resp BP Pulse Ox O2 Del Method 98.8 F 93 18 112/78 97 Room Air 03/15/24 09:25 03/15/24 09:25 03/15/24 09:25 03/15/24 09:25 03/15/24 09:25 03/15/24 09:25 Preop Diagnosis: difficulty swallowing Operation Date: 03/15/24 10:00 Proposed Procedures p EGD Dilation W/ Balloon 53483, R13.10, D50.9(Not Applicable) - Juan Carlos Jordan DO Familial anesthetic complications: none Was Beta Nevaeh taken within 24 hours: N/A Was Clonidine taken within 24 hours: N/A Last intake: Intake Last Liquid Date 03/14/24 Last Liquid Time 21:00 Last Solid Date 03/14/24 Last Solid Time 21:00 Social No alcohol and No tobacco Exam alert, oriented x 3, clear to auscultation bilaterally and regular rate & rhythm Airway Submandibular: within normal limits Cervical ROM: within normal limits Mallampati: Class II Dentition: false History/ROS No significant history except as noted and No significant complaints Pulmonary None reported CV/HEM None reported None reported Hepatic None reported GI Gastroesophageal Reflux Disease Metabolic None reported Musc/skel None reported Neuropsych None reported Anesthetic Plan ASA status: 2 Anesthesia: MAC Other Pertinent Information Melanoma, Chemotherapy Medications/Allergies Home Medications Medication Instructions Recorded Confirmed Last Taken Type pembrolizumab 50 mg intravenous 50 mg IV .[id number] 05/24/23 03/13/24 03/13/24 History solution ondansetron HCl 4 mg tablet 4 mg PO Q8H PRN nausea and 06/18/23 03/13/24 03/13/24 Rx vomiting #30 tabs pantoprazole 40 mg tablet,delayed 40 mg PO BID 30 days #60 tabs 02/21/24 03/13/24 03/14/24 21:00 Rx release (Protonix) hydrocodone 7.5 mg-acetaminophen 1 tab PO Q6H PRN pain #20 tabs 02/22/24 03/13/24 03/13/24 Rx 325 mg tablet escitalopram oxalate 10 mg tablet 10 mg PO DAILY 03/08/24 03/13/24 03/13/24 History (Lexapro) lorazepam 0.5 mg tablet 0.5 mg PO Q6H PRN nausea and 03/08/24 03/13/24 03/13/24 Rx vomiting #30 tabs prochlorperazine maleate 10 mg 10 mg PO Q6H PRN Nausea And 03/13/24 03/13/24 03/13/24 History tablet (Compazine) Vomiting Allergies Allergy/AdvReac Type Severity Reaction Status Date / Time No Known Allergies Allergy Verified 03/15/24 09:08 [facility] Anesthesia Medical History Iron deficiency anemia Follicular lymphoma Hiatal hernia Urolithiasis Surgical History Hx of melanoma excision 01/25/23 Wide local excision of malignant melanoma right arm with Dr Jordan S/P extracorporeal shock wave therapy Family History Mother Cancer lung Social History Smoking and tobacco/nicotine status: former use of tobacco/nicotine Quit status (tobacco/nicotine): has quit using Year quit tobacco: 2022 Former quit date comment: 20 years total use Alcohol intake: never Substance/Drug Use: never Marital status: Current occupational status: unemployed Data Anesthesia Cardiac Studies: No Data to Display
--- NOTE | 2024-03-15 10:51 | W.PM.OPSUD ---
Surgery/Procedure H&P Update DATE OF PROCEDURE: March 15, 2024 DATE H&P PERFORMED: 02/21/24 H&P UPDATE INFORMATION: I have reviewed H&P completed within last 30 days, I have examined patient prior to procedure and No changes to prior documentation CHANGES TO PREVIOUS DOCUMENTATION: She is refusing colonoscopy PREOP DIAGNOSIS: difficulty swallowing PLANNED PROCEDURE: Operation Date: 03/15/24 10:00 Proposed Procedures p EGD Dilation W/ Balloon 11911, R13.10, D50.9(Not Applicable) - Juan Carlos Jordan DO
[2024-03-15 11:11] VITALS: BP 90/70; PULSE 102; RESP 16; TEMP 36.4; O2SAT 93
[2024-03-15 11:22] VITALS: BP 111/72; PULSE 100; RESP 18; O2SAT 94
[2024-03-15 11:31] VITALS: BP 105/72; PULSE 100; RESP 18; O2SAT 94
--- NOTE | 2024-03-15 11:40 | ANE.PACU2 ---
Inpatient post-anesthesia follow up: Airway intact: Yes Vital signs: Temperature 97.6 F Pulse Rate 100 Respiratory Rate 18 Blood Pressure 105/72 Pulse Oximetry 94 Oxygen Delivery Me thod Room Air Oxygen Flow Rate 2 Fraction of Inspir ed Oxygen Hydration adequate: Yes Nausea and vomiting: No Pain level: 1 Mental status: Baseline
== END 2024-03-15 11:40 | disposition home or self-care (01) ==
PROVIDERS: PCP Electrodiagnostic Medicine; Visit Provider Surgery
DX: R13.10 Dysphagia, unspecified (principal); D50.9 Iron deficiency anemia, unspecified; K22.2 Esophageal obstruction; K20.90 Esophagitis, unspecified without bleeding; K21.9 Gastro-esophageal reflux disease without esophagitis; Z87.891 Personal history of nicotine dependence
CPT/HCPCS: 43239; 43249; 88305; J2704

== ENCOUNTER 2024-03-30 09:45 | Oncology outpatient (recurring) (ONCR) | payer BC, MEDICAID, SELFPAY ==
[2024-03-16 09:09] LABS: Basophils # 0.1 10^3/uL (0.0-0.1); Basophils % 0.3 %; Eosinophils # 1.4 10^3/uL (0.0-0.8); Eosinophils % 5.5 %; Hematocrit 38.7 % (36-47); Lymphocytes # 0.9 10^3/uL (0.8-4.8); Lymphocytes % 3.6 %; Mean Corpuscular HGB Conc 33.3 g/dL (30-55); Mean Corpuscular Hemoglobin 29.3 pg (27-33); Mean Corpuscular Volume 87.8 fl (85-98); Mean Platelet Volume 9.4 fL (7.4-10.4); Monocytes # 2.1 10^3/uL (0.2-0.9); Monocytes % 8.3 %; Neutrophils # 19.74 10^3/uL (1.8-7.7); Nucleated Red Blood Cells % 0 %; Platelet Count 186 10^3/cmm (157-399); Red Blood Count 4.41 10^6/uL (3.85-5.65); Red Cell Distribution Width 14.2 % (12.1-15.1); White Blood Count 25.63 10^3/uL (3.29-11.43)
[2024-03-16 09:31] LABS: Alanine Aminotransferase 26 U/L (0-33); Alkaline Phosphatase 282 U/L (35-105); Anion Gap 12.9 (5-19); Aspartate Amino Transferase 20 U/L (0-32); Blood Urea Nitrogen 14 mg/dL (6-20); Calcium 8.7 mg/dL (8.5-10.5); Carbon Dioxide 26 mmol/L (22-29); Chloride 104 mmol/L (98-107); Globulin 2.3 g/dL (1.3-4.6); Glomerular Filtration Rate 73.9 mL/min (90-130); Glucose 172 mg/dL (65-115); Lactate Dehydrogenase 238 U/L (135-214); Osmolality Calculated 293 mOsm/kg (285-295); Potassium 3.9 mmol/L (3.5-5.1); Sodium 139 mmol/L (136-145); Total Bilirubin 0.2 mg/dL (0.15-1.2); Total Protein 6.3 g/dL (6.6-8.7)
[2024-03-16 09:54] LABS: Slide Review Slide Review Perform
[2024-03-16 09:56] LABS: Neutrophils % 82.3 %
[2024-03-23 10:21] LABS: Basophils # 0.1 10^3/uL (0.0-0.1); Basophils % 0.9 %; Eosinophils # 0.6 10^3/uL (0.0-0.8); Eosinophils % 7.3 %; Hematocrit 36.4 % (36-47); Lymphocytes # 0.7 10^3/uL (0.8-4.8); Mean Corpuscular HGB Conc 33.5 g/dL (30-55); Mean Corpuscular Hemoglobin 29.6 pg (27-33); Mean Corpuscular Volume 88.3 fl (85-98); Mean Platelet Volume 9.9 fL (7.4-10.4); Monocytes # 0.8 10^3/uL (0.2-0.9); Monocytes % 9.5 %; Neutrophils # 5.91 10^3/uL (1.8-7.7); Neutrophils % 72.8 %; Nucleated Red Blood Cells % 0 %; Platelet Count 188 10^3/cmm (157-399); Red Blood Count 4.12 10^6/uL (3.85-5.65); White Blood Count 8.11 10^3/uL (3.29-11.43)
[2024-03-23 10:37] LABS: Erythrocyte Sedimentation Rate 21 mm/hr (0-15)
[2024-03-23 10:46] LABS: Alanine Aminotransferase 17 U/L (0-33); Albumin Level 3.9 g/dL (3.5-5.2); Alkaline Phosphatase 166 U/L (35-105); Anion Gap 14.1 (5-19); Aspartate Amino Transferase 15 U/L (0-32); Blood Urea Nitrogen 9 mg/dL (6-20); Calcium 9.2 mg/dL (8.5-10.5); Carbon Dioxide 24 mmol/L (22-29); Chloride 100 mmol/L (98-107); Globulin 2.3 g/dL (1.3-4.6); Glomerular Filtration Rate 86.2 mL/min (90-130); Glucose 104 mg/dL (65-115); Lactate Dehydrogenase 206 U/L (135-214); Osmolality Calculated 277 mOsm/kg (285-295); Phosphorus 2.2 mg/dL (2.5-4.5); Potassium 4.1 mmol/L (3.5-5.1); Sodium 134 mmol/L (136-145); Thyroid Stimulating Hormone 3.23 uIU/mL (0.27-4.20); Total Bilirubin 0.2 mg/dL (0.15-1.2); Total Protein 6.2 g/dL (6.6-8.7); Uric Acid 3.8 mg/dL (2.4-5.7)
[2024-03-30 10:48] LABS: Basophils # 0.1 10^3/uL (0.0-0.1); Basophils % 1.7 %; Eosinophils # 0.9 10^3/uL (0.0-0.8); Eosinophils % 11.4 %; Hematocrit 38.1 % (36-47); Lymphocytes # 0.9 10^3/uL (0.8-4.8); Lymphocytes % 11.9 %; Mean Corpuscular HGB Conc 33.3 g/dL (30-55); Mean Corpuscular Hemoglobin 29.1 pg (27-33); Mean Corpuscular Volume 87.2 fl (85-98); Mean Platelet Volume 9.3 fL (7.4-10.4); Monocytes # 0.8 10^3/uL (0.2-0.9); Monocytes % 11.1 %; Neutrophils % 63.8 %; Nucleated Red Blood Cells % 0 %; Platelet Count 203 10^3/cmm (157-399); Red Blood Count 4.37 10^6/uL (3.85-5.65); Red Cell Distribution Width 14.1 % (12.1-15.1); White Blood Count 7.54 10^3/uL (3.29-11.43)
[2024-03-30 11:13] LABS: Alanine Aminotransferase 22 U/L (0-33); Albumin Level 3.9 g/dL (3.5-5.2); Alkaline Phosphatase 143 U/L (35-105); Anion Gap 14.3 (5-19); Aspartate Amino Transferase 18 U/L (0-32); Blood Urea Nitrogen 12 mg/dL (6-20); Calcium 9.5 mg/dL (8.5-10.5); Carbon Dioxide 26 mmol/L (22-29); Chloride 100 mmol/L (98-107); Globulin 2.5 g/dL (1.3-4.6); Glomerular Filtration Rate 86.2 mL/min (90-130); Glucose 93 mg/dL (65-115); Lactate Dehydrogenase 180 U/L (135-214); Osmolality Calculated 281 mOsm/kg (285-295); Potassium 4.3 mmol/L (3.5-5.1); Sodium 136 mmol/L (136-145); Total Bilirubin 0.2 mg/dL (0.15-1.2); Total Protein 6.4 g/dL (6.6-8.7)
== END 2024-03-31 23:59 | disposition home or self-care (01) ==
PROVIDERS: Nurse Practitioner; PCP Electrodiagnostic Medicine; Visit Provider Radiology Radiation Oncology
DX: Z53.9 Procedure and treatment not carried out, unspecified reason; C85.90 Non-Hodgkin lymphoma, unspecified, unspecified site
CPT/HCPCS: 36591; 80053; 83010; 83615; 84100; 84443; 84550; 85025; 85651

== ENCOUNTER 2024-04-06 10:00 | Oncology outpatient (recurring) (ONCR) | payer BC, MEDICAID, SELFPAY ==
[2024-04-05] VITALS (7 sets, daily range): BP systolic 122–137; BP diastolic 74–89; PULSE 42–100; RESP 17–18; TEMP 36.4–37.6; O2SAT 95–99
[2024-04-05 09:12] LABS: Basophils # 0.1 10^3/uL (0.0-0.1); Basophils % 1.5 %; Eosinophils # 0.7 10^3/uL (0.0-0.8); Eosinophils % 13.1 %; Hematocrit 34.5 % (36-47); Lymphocytes # 0.6 10^3/uL (0.8-4.8); Lymphocytes % 10.7 %; Mean Corpuscular HGB Conc 33.3 g/dL (30-55); Mean Corpuscular Hemoglobin 29.6 pg (27-33); Mean Corpuscular Volume 88.7 fl (85-98); Mean Platelet Volume 9.4 fL (7.4-10.4); Monocytes # 0.5 10^3/uL (0.2-0.9); Monocytes % 8.3 %; Neutrophils # 3.58 10^3/uL (1.8-7.7); Nucleated Red Blood Cells % 0 %; Platelet Count 164 10^3/cmm (157-399); Red Blood Count 3.89 10^6/uL (3.85-5.65); Red Cell Distribution Width 14.4 % (12.1-15.1); White Blood Count 5.42 10^3/uL (3.29-11.43)
[2024-04-05 09:27] LABS: Alanine Aminotransferase 25 U/L (0-33); Albumin Level 3.8 g/dL (3.5-5.2); Alkaline Phosphatase 122 U/L (35-105); Anion Gap 11.3 (5-19); Aspartate Amino Transferase 21 U/L (0-32); Blood Urea Nitrogen 15 mg/dL (6-20); Carbon Dioxide 26 mmol/L (22-29); Chloride 105 mmol/L (98-107); Creatinine Clr Calc Pharmacy 80.4824; Globulin 2.4 g/dL (1.3-4.6); Glomerular Filtration Rate 86.2 mL/min (90-130); Glucose 84 mg/dL (65-115); Lactate Dehydrogenase 172 U/L (135-214); Osmolality Calculated 286 mOsm/kg (285-295); Potassium 4.3 mmol/L (3.5-5.1); Sodium 138 mmol/L (136-145); Total Bilirubin 0.2 mg/dL (0.15-1.2); Total Protein 6.2 g/dL (6.6-8.7)
[2024-04-05] MEDS: sodium chloride 0.9% 250 ML 75 ML IV (11:28)
[2024-04-05] MEDS: acetaminophen 325 mg Tablet 650 MG PO (11:29)
[2024-04-05] MEDS: ondansetron 2 mg/ML SDV 2 mL 8 MG IVP (11:29)
[2024-04-05] MEDS: dexamethasone 4 mg/mL INJ 5 mL 12 MG IVP (11:32)
--- NOTE | 2024-04-05 11:36 | PC.PHAR ---
phone call to mt to double check she wants both solumedrol and dex given to patient today. she indeed wants both.
[2024-04-05] MEDS: diphenhydrAMINE 50 mg/mL SDV 1mL 25 MG IVP (11:37)
[2024-04-05] MEDS: methylPREDNISolone sod succ 40 mg/mL INJ IV (11:42)
[2024-04-05] MEDS: SODIUM CHLORIDE 0.9% IV (14:47)
[2024-04-05] MEDS: BENDAMUSTINE IV (14:47)
[2024-04-06] MEDS: sodium chloride 0.9% 250 ML 75 ML IV (10:22)
[2024-04-06] MEDS: aprepitant 130 mg/18 ml SDV IVP (10:22)
[2024-04-06] MEDS: dexamethasone 4 mg/mL INJ 5 mL 12 MG IVP (10:28)
[2024-04-06] MEDS: SODIUM CHLORIDE 0.9% IV (10:56)
[2024-04-06] MEDS: BENDAMUSTINE IV (10:56)
[2024-04-06 11:10] VITALS: BP 124/78; PULSE 80; RESP 18; TEMP 36.6; O2SAT 98
[2024-04-06] MEDS: pegfilgrastim 6 mg/0.6 mL Kit (onpro) SUBCUT (12:06)
== END 2024-04-06 23:59 | disposition home or self-care (01) ==
PROVIDERS: Nurse Practitioner; PCP Electrodiagnostic Medicine; Visit Provider Radiology Radiation Oncology
DX: Z51.11 Encounter for antineoplastic chemotherapy; C82.90 Follicular lymphoma, unspecified, unspecified site; Z79.899 Other long term (current) drug therapy; Z79.52 Long term (current) use of systemic steroids; Z53.9 Procedure and treatment not carried out, unspecified reason
CPT/HCPCS: 80053; 83615; 85025; 96375; 96377; 96413; J0185; J1100; J1200; J2405; J2506; J2919; J7040; J7050; J9034; Q5119

== ENCOUNTER 2024-04-21 09:09 | Oncology outpatient (recurring) (ONCR) | payer BC, MEDICAID, SELFPAY ==
[2024-04-14 09:52] LABS: Basophils # 0.1 10^3/uL (0.0-0.1); Basophils % 0.9 %; Eosinophils # 0.7 10^3/uL (0.0-0.8); Eosinophils % 4.7 %; Hematocrit 35.1 % (36-47); Lymphocytes # 0.6 10^3/uL (0.8-4.8); Mean Corpuscular HGB Conc 33.3 g/dL (30-55); Mean Corpuscular Hemoglobin 29.3 pg (27-33); Mean Corpuscular Volume 87.8 fl (85-98); Mean Platelet Volume 9.3 fL (7.4-10.4); Monocytes # 1.1 10^3/uL (0.2-0.9); Monocytes % 7.7 %; Neutrophils # 12.17 10^3/uL (1.8-7.7); Neutrophils % 81.8 %; Nucleated Red Blood Cells % 0 %; Platelet Count 137 10^3/cmm (157-399); Red Cell Distribution Width 15.2 % (12.1-15.1); White Blood Count 14.87 10^3/uL (3.29-11.43)
[2024-04-14 10:12] LABS: Alanine Aminotransferase 34 U/L (0-33); Alkaline Phosphatase 242 U/L (35-105); Anion Gap 16.3 (5-19); Aspartate Amino Transferase 21 U/L (0-32); Blood Urea Nitrogen 12 mg/dL (6-20); Calcium 9.4 mg/dL (8.5-10.5); Carbon Dioxide 27 mmol/L (22-29); Chloride 96 mmol/L (98-107); Globulin 2.3 g/dL (1.3-4.6); Glomerular Filtration Rate 73.9 mL/min (90-130); Glucose 101 mg/dL (65-115); Lactate Dehydrogenase 221 U/L (135-214); Osmolality Calculated 280 mOsm/kg (285-295); Potassium 4.3 mmol/L (3.5-5.1); Sodium 135 mmol/L (136-145); Total Bilirubin 0.2 mg/dL (0.15-1.2); Total Protein 6.3 g/dL (6.6-8.7)
[2024-04-21 09:39] LABS: Basophils # 0.1 10^3/uL (0.0-0.1); Basophils % 1.4 %; Eosinophils # 0.4 10^3/uL (0.0-0.8); Eosinophils % 7.4 %; Hematocrit 32.5 % (36-47); Lymphocytes # 0.5 10^3/uL (0.8-4.8); Lymphocytes % 9.3 %; Mean Corpuscular HGB Conc 33.2 g/dL (30-55); Mean Corpuscular Hemoglobin 29.9 pg (27-33); Mean Platelet Volume 9.2 fL (7.4-10.4); Monocytes # 0.5 10^3/uL (0.2-0.9); Monocytes % 10.5 %; Neutrophils # 3.68 10^3/uL (1.8-7.7); Neutrophils % 71.2 %; Nucleated Red Blood Cells % 0 %; Platelet Count 179 10^3/cmm (157-399); Red Blood Count 3.61 10^6/uL (3.85-5.65); Red Cell Distribution Width 15.5 % (12.1-15.1); White Blood Count 5.16 10^3/uL (3.29-11.43)
[2024-04-21 10:10] LABS: Alanine Aminotransferase 29 U/L (0-33); Albumin Level 3.8 g/dL (3.5-5.2); Alkaline Phosphatase 187 U/L (35-105); Anion Gap 15.3 (5-19); Aspartate Amino Transferase 25 U/L (0-32); Blood Urea Nitrogen 15 mg/dL (6-20); Calcium 9.1 mg/dL (8.5-10.5); Carbon Dioxide 24 mmol/L (22-29); Chloride 100 mmol/L (98-107); Globulin 2.2 g/dL (1.3-4.6); Glomerular Filtration Rate 73.9 mL/min (90-130); Glucose 114 mg/dL (65-115); Lactate Dehydrogenase 205 U/L (135-214); Osmolality Calculated 282 mOsm/kg (285-295); Potassium 4.3 mmol/L (3.5-5.1); Sodium 135 mmol/L (136-145); Total Bilirubin 0.2 mg/dL (0.15-1.2)
== END 2024-04-28 23:59 | disposition home or self-care (01) ==
PROVIDERS: Nurse Practitioner Family; PCP Electrodiagnostic Medicine; Visit Provider Radiology Radiation Oncology
DX: C85.90 Non-Hodgkin lymphoma, unspecified, unspecified site (principal)
CPT/HCPCS: 36591; 80053; 83615; 85025

== ENCOUNTER 2024-05-03 09:06 | Oncology outpatient (recurring) (ONCR) | payer BC, MEDICAID, SELFPAY ==
[2024-05-03 09:22] VITALS: BP 145/96; PULSE 99; RESP 16; TEMP 36.7; O2SAT 99
[2024-05-03 09:43] LABS: Basophils # 0.1 10^3/uL (0.0-0.1); Basophils % 1.7 %; Eosinophils # 0.5 10^3/uL (0.0-0.8); Eosinophils % 7.7 %; Hematocrit 30.7 % (36-47); Lymphocytes # 0.6 10^3/uL (0.8-4.8); Lymphocytes % 10.9 %; Mean Corpuscular HGB Conc 34.5 g/dL (30-55); Mean Corpuscular Hemoglobin 31.3 pg (27-33); Mean Corpuscular Volume 90.6 fl (85-98); Mean Platelet Volume 9.8 fL (7.4-10.4); Monocytes # 0.7 10^3/uL (0.2-0.9); Monocytes % 11.4 %; Neutrophils # 3.99 10^3/uL (1.8-7.7); Nucleated Red Blood Cells % 0 %; Platelet Count 191 10^3/cmm (157-399); Red Blood Count 3.39 10^6/uL (3.85-5.65); Red Cell Distribution Width 15.8 % (12.1-15.1); White Blood Count 5.87 10^3/uL (3.29-11.43)
[2024-05-03 10:01] LABS: Alanine Aminotransferase 33 U/L (0-33); Albumin Level 3.9 g/dL (3.5-5.2); Alkaline Phosphatase 149 U/L (35-105); Anion Gap 12.1 (5-19); Aspartate Amino Transferase 29 U/L (0-32); Blood Urea Nitrogen 17 mg/dL (6-20); Carbon Dioxide 24 mmol/L (22-29); Chloride 106 mmol/L (98-107); Globulin 1.9 g/dL (1.3-4.6); Glomerular Filtration Rate 86.2 mL/min (90-130); Glucose 103 mg/dL (65-115); Lactate Dehydrogenase 212 U/L (135-214); Osmolality Calculated 288 mOsm/kg (285-295); Potassium 4.1 mmol/L (3.5-5.1); Sodium 138 mmol/L (136-145); Total Bilirubin 0.2 mg/dL (0.15-1.2); Total Protein 5.8 g/dL (6.6-8.7)
[2024-05-03] MEDS: sodium chloride 0.9% 250 ML 50 ML IV (11:05)
[2024-05-03] MEDS: acetaminophen 325 mg Tablet 650 MG PO (11:06)
[2024-05-03] MEDS: dexamethasone 4 mg/mL INJ 5 mL 12 MG IVP (11:06)
[2024-05-03] MEDS: diphenhydrAMINE 50 mg/mL SDV 1mL 25 MG IVP (11:11)
[2024-05-03] MEDS: ondansetron 2 mg/ML SDV 2 mL 8 MG IVP (11:13)
[2024-05-03 11:35] VITALS: BP 150/97; PULSE 80; RESP 16; TEMP 36.7; O2SAT 99
[2024-05-03] MEDS: SODIUM CHLORIDE 0.9% IV ×2 (11:37→14:12)
[2024-05-03] MEDS: RITUXIMAB PVVR IV (11:37)
[2024-05-03 12:17] VITALS: BP 155/89; PULSE 90; RESP 18; TEMP 36.6; O2SAT 99
[2024-05-03 12:50] VITALS: BP 144/90; PULSE 98; RESP 16; TEMP 37.1; O2SAT 99
[2024-05-03 14:06] VITALS: BP 149/92; PULSE 90; RESP 16; TEMP 36.6; O2SAT 95
[2024-05-03] MEDS: BENDAMUSTINE IV (14:12)
[2024-05-03 14:31] VITALS: BP 141/84; PULSE 99; TEMP 37; O2SAT 97
== END 2024-05-03 23:59 | disposition home or self-care (01) ==
PROVIDERS: Nurse Practitioner Family; PCP Electrodiagnostic Medicine; Visit Provider Radiology Radiation Oncology
DX: Z51.11 Encounter for antineoplastic chemotherapy (principal); C85.98 Non-Hodgkin lymphoma, unspecified, lymph nodes of multiple sites; Z79.899 Other long term (current) drug therapy; Z87.891 Personal history of nicotine dependence
CPT/HCPCS: 80053; 83615; 85025; 96375; 96411; 96413; 96415; 96417; J1100; J1200; J2405; J7040; J7050; J9034; Q5119

== ENCOUNTER 2024-05-04 13:51 | Oncology outpatient (recurring) (ONCR) | payer BC, MEDICAID, SELFPAY ==
[2024-05-04 14:12] VITALS: BP 134/85; TEMP 37.2; O2SAT 84
[2024-05-04] MEDS: aprepitant 130 mg/18 ml SDV IVP (14:26)
[2024-05-04] MEDS: sodium chloride 0.9% 250 ML 50 ML IV (14:27)
[2024-05-04] MEDS: dexamethasone 4 mg/mL INJ 5 mL 12 MG IVP (14:31)
[2024-05-04] MEDS: BENDAMUSTINE IV (14:48)
[2024-05-04] MEDS: SODIUM CHLORIDE 0.9% IV (14:48)
[2024-05-04] MEDS: pegfilgrastim 6 mg/0.6 mL Kit (onpro) SUBCUT (15:33)
== END 2024-05-04 23:59 | disposition home or self-care (01) ==
PROVIDERS: PCP Electrodiagnostic Medicine; Visit Provider Radiology Radiation Oncology
DX: Z51.11 Encounter for antineoplastic chemotherapy (principal); C85.90 Non-Hodgkin lymphoma, unspecified, unspecified site; Z79.52 Long term (current) use of systemic steroids
CPT/HCPCS: 96375; 96377; 96409; J0185; J1100; J2506; J7050; J9034

== ENCOUNTER 2024-05-17 14:30 | Oncology outpatient (recurring) (ONCR) | payer BC, MEDICAID, SELFPAY ==
[2024-05-12 10:14] LABS: Basophils # 0.1 10^3/uL (0.0-0.1); Basophils % 0.5 %; Eosinophils # 0.8 10^3/uL (0.0-0.8); Eosinophils % 3.7 %; Hematocrit 31.9 % (36-47); Lymphocytes # 0.9 10^3/uL (0.8-4.8); Lymphocytes % 4.2 %; Mean Corpuscular HGB Conc 33.2 g/dL (30-55); Mean Corpuscular Hemoglobin 29.9 pg (27-33); Mean Corpuscular Volume 89.9 fl (85-98); Mean Platelet Volume 9.8 fL (7.4-10.4); Monocytes # 1.5 10^3/uL (0.2-0.9); Monocytes % 6.7 %; Neutrophils # 18.16 10^3/uL (1.8-7.7); Neutrophils % 83.2 %; Nucleated Red Blood Cells % 0 %; Platelet Count 106 10^3/cmm (157-399); Red Blood Count 3.55 10^6/uL (3.85-5.65); Red Cell Distribution Width 16.3 % (12.1-15.1); White Blood Count 21.86 10^3/uL (3.29-11.43)
[2024-05-12 10:31] LABS: Alanine Aminotransferase 42 U/L (0-33); Albumin Level 3.8 g/dL (3.5-5.2); Alkaline Phosphatase 317 U/L (35-105); Anion Gap 16.1 (5-19); Aspartate Amino Transferase 25 U/L (0-32); Blood Urea Nitrogen 18 mg/dL (6-20); Calcium 8.7 mg/dL (8.5-10.5); Carbon Dioxide 23 mmol/L (22-29); Chloride 101 mmol/L (98-107); Globulin 2.4 g/dL (1.3-4.6); Glomerular Filtration Rate 64.3 mL/min (90-130); Glucose 123 mg/dL (65-115); Lactate Dehydrogenase 314 U/L (135-214); Osmolality Calculated 285 mOsm/kg (285-295); Potassium 4.1 mmol/L (3.5-5.1); Sodium 136 mmol/L (136-145); Total Bilirubin 0.2 mg/dL (0.15-1.2); Total Protein 6.2 g/dL (6.6-8.7)
[2024-05-17 14:58] LABS: Basophils # 0.1 10^3/uL (0.0-0.1); Basophils % 0.8 %; Eosinophils # 0.5 10^3/uL (0.0-0.8); Eosinophils % 5.9 %; Hematocrit 31.1 % (36-47); Lymphocytes # 0.6 10^3/uL (0.8-4.8); Lymphocytes % 6.6 %; Mean Corpuscular HGB Conc 33.4 g/dL (30-55); Mean Corpuscular Hemoglobin 30.1 pg (27-33); Mean Corpuscular Volume 90.1 fl (85-98); Mean Platelet Volume 9.9 fL (7.4-10.4); Monocytes # 0.8 10^3/uL (0.2-0.9); Neutrophils # 6.46 10^3/uL (1.8-7.7); Neutrophils % 77.2 %; Nucleated Red Blood Cells % 0 %; Platelet Count 157 10^3/cmm (157-399); Red Blood Count 3.45 10^6/uL (3.85-5.65); White Blood Count 8.36 10^3/uL (3.29-11.43)
[2024-05-17 15:23] LABS: Alanine Aminotransferase 31 U/L (0-33); Albumin Level 3.8 g/dL (3.5-5.2); Alkaline Phosphatase 231 U/L (35-105); Anion Gap 15.4 (5-19); Aspartate Amino Transferase 25 U/L (0-32); Blood Urea Nitrogen 16 mg/dL (6-20); Carbon Dioxide 23 mmol/L (22-29); Chloride 98 mmol/L (98-107); Globulin 2.7 g/dL (1.3-4.6); Glomerular Filtration Rate 73.7 mL/min (90-130); Glucose 107 mg/dL (65-115); Lactate Dehydrogenase 250 U/L (135-214); Osmolality Calculated 276 mOsm/kg (285-295); Potassium 4.4 mmol/L (3.5-5.1); Sodium 132 mmol/L (136-145); Total Bilirubin 0.3 mg/dL (0.15-1.2); Total Protein 6.5 g/dL (6.6-8.7)
== END 2024-05-29 23:59 | disposition home or self-care (01) ==
PROVIDERS: Nurse Practitioner Family; PCP Electrodiagnostic Medicine; Visit Provider Radiology Radiation Oncology
DX: Z53.9 Procedure and treatment not carried out, unspecified reason (principal); C85.90 Non-Hodgkin lymphoma, unspecified, unspecified site
CPT/HCPCS: 36591; 80053; 83615; 85025

== ENCOUNTER 2024-06-01 10:00 | Oncology outpatient (recurring) (ONCR) | payer BC, MEDICAID, SELFPAY ==
[2024-05-31 09:41] LABS: Basophils % 0.6 %; Hematocrit 28.7 % (36-47); Lymphocytes # 0.9 10^3/uL (0.8-4.8); Lymphocytes % 14.3 %; Mean Corpuscular HGB Conc 33.4 g/dL (30-55); Mean Corpuscular Hemoglobin 29.4 pg (27-33); Mean Corpuscular Volume 87.8 fl (85-98); Mean Platelet Volume 9.4 fL (7.4-10.4); Monocytes # 0.9 10^3/uL (0.2-0.9); Monocytes % 14.1 %; Neutrophils # 4.61 10^3/uL (1.8-7.7); Neutrophils % 70.8 %; Nucleated Red Blood Cells % 0 %; Platelet Count 189 10^3/cmm (157-399); Red Blood Count 3.27 10^6/uL (3.85-5.65); Red Cell Distribution Width 14.7 % (12.1-15.1); White Blood Count 6.51 10^3/uL (3.29-11.43)
[2024-05-31 10:05] LABS: Alanine Aminotransferase 24 U/L (0-33); Albumin Level 3.8 g/dL (3.5-5.2); Alkaline Phosphatase 190 U/L (35-105); Anion Gap 14.8 (5-19); Aspartate Amino Transferase 21 U/L (0-32); Blood Urea Nitrogen 17 mg/dL (6-20); Carbon Dioxide 24 mmol/L (22-29); Chloride 98 mmol/L (98-107); Globulin 2.5 g/dL (1.3-4.6); Glomerular Filtration Rate 85.9 mL/min (90-130); Glucose 81 mg/dL (65-115); Lactate Dehydrogenase 234 U/L (135-214); Osmolality Calculated 275 mOsm/kg (285-295); Potassium 4.8 mmol/L (3.5-5.1); Sodium 132 mmol/L (136-145); Total Bilirubin 0.3 mg/dL (0.15-1.2); Total Protein 6.3 g/dL (6.6-8.7)
[2024-05-31] MEDS: sodium chloride 0.9% 250 ML 75 ML IV (10:36)
[2024-05-31] MEDS: acetaminophen 325 mg Tablet 650 MG PO (10:36)
[2024-05-31] MEDS: diphenhydrAMINE 50 mg/mL SDV 1mL 25 MG IVP (10:45)
[2024-05-31] MEDS: dexamethasone 4 mg/mL INJ 5 mL 12 MG IVP (10:47)
[2024-05-31] MEDS: ondansetron 2 mg/ML SDV 2 mL 8 MG IVP (10:49)
[2024-05-31 11:12] VITALS: BP 126/78; PULSE 103; RESP 18; TEMP 37; O2SAT 93
[2024-05-31 11:43] VITALS: BP 134/77; PULSE 109; RESP 18; TEMP 37.1; O2SAT 94
[2024-05-31 12:15] VITALS: BP 113/74; BP 113/77; PULSE 92; RESP 17; RESP 18; TEMP 36.8; O2SAT 99
[2024-05-31 12:45] VITALS: BP 141/89; PULSE 103; RESP 17; RESP 18; TEMP 36.8; O2SAT 92
[2024-05-31 13:40] VITALS: BP 137/80; PULSE 104; RESP 18; TEMP 37.2; O2SAT 96
[2024-05-31] MEDS: BENDAMUSTINE IV (14:02)
[2024-05-31] MEDS: SODIUM CHLORIDE 0.9% IV (14:02)
[2024-05-31 14:05] VITALS: BP 124/78; PULSE 102; RESP 18; TEMP 36.4; O2SAT 98
[2024-06-01 09:28] VITALS: BP 138/90; PULSE 93; RESP 17; TEMP 36.6; O2SAT 96
[2024-06-01] MEDS: sodium chloride 0.9% 250 ML 75 ML IV (10:25)
[2024-06-01] MEDS: aprepitant 130 mg/18 ml SDV IVP (10:25)
[2024-06-01] MEDS: dexamethasone 4 mg/mL INJ 5 mL 12 MG IVP (10:25)
[2024-06-01] MEDS: SODIUM CHLORIDE 0.9% IV (11:06)
[2024-06-01] MEDS: BENDAMUSTINE IV (11:06)
[2024-06-01] MEDS: pegfilgrastim 6 mg/0.6 mL Kit (onpro) SUBCUT (11:22)
== END 2024-06-01 23:59 | disposition home or self-care (01) ==
PROVIDERS: Nurse Practitioner Family; PCP Electrodiagnostic Medicine; Visit Provider Radiology Radiation Oncology
DX: Z53.9 Procedure and treatment not carried out, unspecified reason; Z51.12 Encounter for antineoplastic immunotherapy; C85.90 Non-Hodgkin lymphoma, unspecified, unspecified site; Z51.11 Encounter for antineoplastic chemotherapy; Z79.52 Long term (current) use of systemic steroids; Z79.899 Other long term (current) drug therapy
CPT/HCPCS: 80053; 83615; 85025; 96368; 96375; 96377; 96401; 96413; 96415; J0185; J1100; J1200; J2405; J2506; J7040; J7050; J9034; J9999; Q5119

== ENCOUNTER 2024-06-28 08:33 | Oncology outpatient (recurring) (ONCR) | payer BC, MEDICAID, SELFPAY ==
[2024-06-07 13:01] LABS: Basophils # 0.1 10^3/uL (0.0-0.1); Basophils % 0.9 %; Hematocrit 32.8 % (36-47); Lymphocytes # 0.5 10^3/uL (0.8-4.8); Lymphocytes % 4.3 %; Mean Corpuscular HGB Conc 32.6 g/dL (30-55); Mean Corpuscular Volume 88.9 fl (85-98); Mean Platelet Volume 9.1 fL (7.4-10.4); Monocytes # 1.3 10^3/uL (0.2-0.9); Monocytes % 11.1 %; Neutrophils % 82.9 %; Nucleated Red Blood Cells % 0 %; Platelet Count 171 10^3/cmm (157-399); Red Blood Count 3.69 10^6/uL (3.85-5.65); Red Cell Distribution Width 15.5 % (12.1-15.1); White Blood Count 11.94 10^3/uL (3.29-11.43)
[2024-06-07 13:17] LABS: Alanine Aminotransferase 31 U/L (0-33); Albumin Level 3.8 g/dL (3.5-5.2); Alkaline Phosphatase 274 U/L (35-105); Anion Gap 13.5 (5-19); Aspartate Amino Transferase 21 U/L (0-32); Blood Urea Nitrogen 11 mg/dL (6-20); Calcium 8.9 mg/dL (8.5-10.5); Carbon Dioxide 25 mmol/L (22-29); Chloride 100 mmol/L (98-107); Globulin 2.5 g/dL (1.3-4.6); Glomerular Filtration Rate 85.9 mL/min (90-130); Glucose 116 mg/dL (65-115); Lactate Dehydrogenase 208 U/L (135-214); Osmolality Calculated 280 mOsm/kg (285-295); Potassium 3.5 mmol/L (3.5-5.1); Sodium 135 mmol/L (136-145); Total Bilirubin 0.2 mg/dL (0.15-1.2); Total Protein 6.3 g/dL (6.6-8.7)
[2024-06-07 13:31] LABS: Slide Review Slide Review Perform
[2024-06-14 12:44] LABS: Basophils % 0.7 %; Hematocrit 32.1 % (36-47); Lymphocytes # 0.7 10^3/uL (0.8-4.8); Mean Corpuscular HGB Conc 32.7 g/dL (30-55); Mean Corpuscular Hemoglobin 29.5 pg (27-33); Mean Corpuscular Volume 90.2 fl (85-98); Mean Platelet Volume 9.4 fL (7.4-10.4); Monocytes # 0.6 10^3/uL (0.2-0.9); Monocytes % 13.4 %; Neutrophils # 3.06 10^3/uL (1.8-7.7); Neutrophils % 70.7 %; Nucleated Red Blood Cells % 0 %; Platelet Count 196 10^3/cmm (157-399); Red Blood Count 3.56 10^6/uL (3.85-5.65); Red Cell Distribution Width 15.3 % (12.1-15.1); White Blood Count 4.33 10^3/uL (3.29-11.43)
[2024-06-14 13:06] LABS: Alanine Aminotransferase 28 U/L (0-33); Albumin Level 3.8 g/dL (3.5-5.2); Alkaline Phosphatase 205 U/L (35-105); Anion Gap 15.3 (5-19); Aspartate Amino Transferase 23 U/L (0-32); Blood Urea Nitrogen 17 mg/dL (6-20); Calcium 8.9 mg/dL (8.5-10.5); Carbon Dioxide 23 mmol/L (22-29); Chloride 103 mmol/L (98-107); Globulin 2.3 g/dL (1.3-4.6); Glomerular Filtration Rate 73.7 mL/min (90-130); Glucose 112 mg/dL (65-115); Lactate Dehydrogenase 215 U/L (135-214); Osmolality Calculated 286 mOsm/kg (285-295); Potassium 4.3 mmol/L (3.5-5.1); Sodium 137 mmol/L (136-145); Total Bilirubin 0.2 mg/dL (0.15-1.2); Total Protein 6.1 g/dL (6.6-8.7)
[2024-06-22 15:03] LABS: Basophils # 0.1 10^3/uL (0.0-0.1); Basophils % 1.4 %; Hematocrit 31.5 % (36-47); Mean Corpuscular HGB Conc 31.4 g/dL (30-55); Mean Corpuscular Hemoglobin 28.7 pg (27-33); Mean Corpuscular Volume 91.3 fl (85-98); Mean Platelet Volume 9.6 fL (7.4-10.4); Monocytes # 0.6 10^3/uL (0.2-0.9); Neutrophils # 2.73 10^3/uL (1.8-7.7); Neutrophils % 62.6 %; Nucleated Red Blood Cells % 0 %; Platelet Count 187 10^3/cmm (157-399); Red Blood Count 3.45 10^6/uL (3.85-5.65); Red Cell Distribution Width 15.7 % (12.1-15.1); White Blood Count 4.36 10^3/uL (3.29-11.43)
[2024-06-22 15:16] LABS: Alanine Aminotransferase 22 U/L (0-33); Alkaline Phosphatase 169 U/L (35-105); Aspartate Amino Transferase 28 U/L (0-32); Blood Urea Nitrogen 13 mg/dL (6-20); Carbon Dioxide 23 mmol/L (22-29); Chloride 102 mmol/L (98-107); Globulin 2.3 g/dL (1.3-4.6); Glomerular Filtration Rate 73.7 mL/min (90-130); Glucose 139 mg/dL (65-115); Lactate Dehydrogenase 235 U/L (135-214); Osmolality Calculated 282 mOsm/kg (285-295); Sodium 135 mmol/L (136-145); Total Bilirubin 0.2 mg/dL (0.15-1.2); Total Protein 6.3 g/dL (6.6-8.7)
[2024-06-28] VITALS (19 sets, daily range): BP systolic 119–178; BP diastolic 11–129; PULSE 90–109; RESP 16–17; TEMP 36.4–37.1; O2SAT 94–98
[2024-06-28 08:51] LABS: Basophils # 0.1 10^3/uL (0.0-0.1); Basophils % 1.6 %; Hematocrit 35.3 % (36-47); Lymphocytes # 0.8 10^3/uL (0.8-4.8); Lymphocytes % 18.2 %; Mean Corpuscular HGB Conc 32.6 g/dL (30-55); Mean Corpuscular Hemoglobin 29.4 pg (27-33); Mean Corpuscular Volume 90.3 fl (85-98); Monocytes # 0.6 10^3/uL (0.2-0.9); Monocytes % 12.4 %; Neutrophils % 67.6 %; Nucleated Red Blood Cells % 0 %; Platelet Count 194 10^3/cmm (157-399); Red Blood Count 3.91 10^6/uL (3.85-5.65); Red Cell Distribution Width 15.8 % (12.1-15.1); White Blood Count 4.44 10^3/uL (3.29-11.43)
[2024-06-28 09:11] LABS: Alanine Aminotransferase 27 U/L (0-33); Alkaline Phosphatase 163 U/L (35-105); Aspartate Amino Transferase 27 U/L (0-32); Blood Urea Nitrogen 13 mg/dL (6-20); Calcium 9.4 mg/dL (8.5-10.5); Carbon Dioxide 26 mmol/L (22-29); Chloride 102 mmol/L (98-107); Globulin 2.4 g/dL (1.3-4.6); Glomerular Filtration Rate 85.9 mL/min (90-130); Glucose 90 mg/dL (65-115); Lactate Dehydrogenase 206 U/L (135-214); Osmolality Calculated 286 mOsm/kg (285-295); Sodium 138 mmol/L (136-145); Total Bilirubin 0.2 mg/dL (0.15-1.2); Total Protein 6.4 g/dL (6.6-8.7)
[2024-06-28] MEDS: sodium chloride 0.9% 250 ML 75 ML IV (11:31)
[2024-06-28] MEDS: diphenhydrAMINE 50 mg/mL SDV 1mL 25 MG IVP ×2 (11:35→15:17)
[2024-06-28] MEDS: acetaminophen 325 mg Tablet 650 MG PO (11:36)
[2024-06-28] MEDS: ondansetron 2 mg/ML SDV 2 mL 8 MG IVP (11:42)
[2024-06-28] MEDS: dexamethasone 4 mg/mL INJ 5 mL 12 MG IVP (11:45)
[2024-06-28] MEDS: RITUXIMAB IV (12:33)
[2024-06-28] MEDS: SODIUM CHLORIDE 0.9% IV ×2 (12:33→16:24)
[2024-06-28] MEDS: famotidine 20 mg/2 mL INJ IVP ×2 (15:15→15:37)
[2024-06-28] MEDS: sodium chloride 0.9% 1,000 ML 250 ML IV (15:15)
[2024-06-28] MEDS: aprepitant 130 mg/18 ml SDV IVP (15:21)
[2024-06-28] MEDS: pantoprazole 40 mg SDV IVP (15:42)
[2024-06-28] MEDS: BENDAMUSTINE IV (16:24)
== END 2024-06-28 23:59 | disposition home or self-care (01) ==
PROVIDERS: Nurse Practitioner Family; PCP Electrodiagnostic Medicine; Visit Provider Radiology Radiation Oncology
DX: Z53.9 Procedure and treatment not carried out, unspecified reason; Z51.11 Encounter for antineoplastic chemotherapy; Z51.12 Encounter for antineoplastic immunotherapy; C85.90 Non-Hodgkin lymphoma, unspecified, unspecified site; Z79.899 Other long term (current) drug therapy
CPT/HCPCS: 36591; 80053; 83615; 85025; 96375; 96413; 96415; 96417; J0185; J1100; J1200; J2405; J2470; J3490; J7030; J7040; J7050; J9034; J9312; J9999

== ENCOUNTER 2024-06-29 12:04 | Oncology outpatient (recurring) (ONCR) | payer BC, MEDICAID, SELFPAY ==
[2024-06-29] MEDS: sodium chloride 0.9% 250 ML IV (12:45)
[2024-06-29] MEDS: aprepitant 130 mg/18 ml SDV IVP (12:45)
[2024-06-29] MEDS: dexamethasone 4 mg/mL INJ 5 mL 12 MG IVP (12:46)
[2024-06-29] MEDS: palonosetron 0.25 mg/5 mL SDV IVP (12:46)
[2024-06-29] MEDS: SODIUM CHLORIDE 0.9% IV (13:22)
[2024-06-29] MEDS: BENDAMUSTINE IV (13:22)
[2024-06-29 14:19] VITALS: BP 155/96; PULSE 98; RESP 17; TEMP 36.9; O2SAT 96
[2024-06-29] MEDS: pegfilgrastim 6 mg/0.6 mL Kit (onpro) SUBCUT (14:19)
== END 2024-06-29 23:59 | disposition home or self-care (01) ==
LOC: ONCMED 12:04
PROVIDERS: PCP Electrodiagnostic Medicine; Visit Provider Radiology Radiation Oncology
DX: Z51.11 Encounter for antineoplastic chemotherapy (principal); C85.90 Non-Hodgkin lymphoma, unspecified, unspecified site; Z79.52 Long term (current) use of systemic steroids; Z79.899 Other long term (current) drug therapy
CPT/HCPCS: 96375; 96377; 96413; J0185; J1100; J2469; J2506; J7050; J9034; J9999

== ENCOUNTER 2024-07-12 10:15 | Emergency (ER) | payer BC, MEDICAID, SELFPAY ==
[2024-07-12 10:24] VITALS: BP 131/97; PULSE 108; RESP 18; TEMP 36.7; O2SAT 98
--- NOTE | 2024-07-12 10:28 | XR_ITS ---
WS: [id number] Exam: XR acute abdomen series [id number] Date/Time of Exam: 07/12/2024 10:32 AM Reason For Exam: pain Chest x-ray compared to the last study 02/11/2023. The lungs are clear and fully inflated. Normal cardiomediastinal silhouette. RIGHT subclavian port ends in the lower one third of the SVC. No pleural effusion. Bony structures are intact. There is probably a large hiatal hernia present. XR/XR acute abdomen series [id number] IMPRESSION: 1. No acute cardiopulmonary finding. Flat and erect abdomen. No bowel obstruction or free air. Large amount of retai ryan stool throughout the colon. No sign of organ enlargement. Surgical clips no debi in the region of the LEFT hip. Bony structures are otherwise unremarkable. IMPRESSION: 1. No acute abdominal process. Constipation.
[2024-07-12 10:51] LABS: Basophils # 0.1 10^3/uL (0.0-0.1); Eosinophils # 0.2 10^3/uL (0.0-0.8); Eosinophils % 3.7 %; Hematocrit 40.4 % (36-47); Lymphocytes # 0.2 10^3/uL (0.8-4.8); Lymphocytes % 3.7 %; Mean Corpuscular HGB Conc 32.9 g/dL (30-55); Mean Corpuscular Hemoglobin 29.7 pg (27-33); Mean Corpuscular Volume 90.2 fl (85-98); Mean Platelet Volume 9.4 fL (7.4-10.4); Monocytes # 0.6 10^3/uL (0.2-0.9); Monocytes % 9.3 %; Neutrophils # 4.87 10^3/uL (1.8-7.7); Nucleated Red Blood Cells % 0 %; Platelet Count 178 10^3/cmm (157-399); Red Blood Count 4.48 10^6/uL (3.85-5.65); Red Cell Distribution Width 15.5 % (12.1-15.1); White Blood Count 5.94 10^3/uL (3.29-11.43)
[2024-07-12 10:57] VITALS: BP 132/100; PULSE 60; RESP 17; O2SAT 96
[2024-07-12] MEDS: ondansetron 2 mg/ML SDV 2 mL 4 MG IVP (11:00)
[2024-07-12] MEDS: HYDROmorphone 0.5 MG/0.5 ML INJ IVP (11:00)
--- NOTE | 2024-07-12 11:09 | PC.PHAR ---
Pt states takes no medications except the protonix 40mg-but has been out for awhile. Removed from chart are the following: Lexapro 10mg, [place] 7.5-325, Ativan 0.5mg, Zofran 4mg, Keytruda 50mg, and compazine 10mg.
[2024-07-12 11:10] LABS: Alanine Aminotransferase 54 U/L (0-33); Albumin Level 4.3 g/dL (3.5-5.2); Alkaline Phosphatase 273 U/L (35-105); Anion Gap 17.1 (5-19); Aspartate Amino Transferase 27 U/L (0-32); Blood Urea Nitrogen 14 mg/dL (6-20); Calcium 9.6 mg/dL (8.5-10.5); Carbon Dioxide 24 mmol/L (22-29); Chloride 100 mmol/L (98-107); Creatinine Clr Calc Pharmacy 69.5737; Globulin 2.8 g/dL (1.3-4.6); Glomerular Filtration Rate 73.7 mL/min (90-130); Glucose 95 mg/dL (65-115); Lipase 44 U/L (13-60); Osmolality Calculated 284 mOsm/kg (285-295); Potassium 4.1 mmol/L (3.5-5.1); Sodium 137 mmol/L (136-145); Total Bilirubin 0.2 mg/dL (0.15-1.2); Total Protein 7.1 g/dL (6.6-8.7)
[2024-07-12 11:11] LABS: Bilirubin Urine Negative (Negative); Blood Urine Negative (Negative); Glucose Urine UA Negative (Normal); Ketones Urine Negative (Negative); Leukocyte Esterase Urine Trace (Negative); Nitrate Urine Negative (Negative); Protein Urine 1+ (Negative); Specific Gravity, Urine 1.025 (1.005-1.030); Urine Appearance Cloudy (CLEAR); Urine Color Yellow (Yellow); pH Urine 6.5 (5-7)
[2024-07-12 11:16] LABS: Add Urine Microscopic? YES; Bacteria Urine 3+ /hpf; Hyaline Casts Urine 7.01 /lpf; RBC Urine 0-2 /hpf (0-2)
[2024-07-12 11:17] LABS: Add Urine Culture? No
--- NOTE | 2024-07-12 11:31 | ED_ITS ---
HPI - Abdominal Pain 2 General: Chief Complaint: Abdominal Pain Stated Complaint: abd pain, n/v, possible constipation Time Seen by Provider: 07/12/24 10:22 History of Present Illness: This patient is a 59-year-old white female who presents to the emergency department complaining of diffuse upper abdominal pain. Patient states that this wraps around to her back. Started yesterday. She has not had any associated nausea or vomiting. She has been constipated. She states that her chemotherapy drugs are causing constipation. She has a history of lymphoma. Associated Symptoms: Reports constipation Related Data Previous Rx's ?Medication ?Instructions ?Recorded pantoprazole 40 mg tablet,delayed 40 mg PO BID 30 days #60 tabs 02/21/24 release (Protonix) peg 3350-electrolytes 236 240 ml PO Q10M #4,000 mL gram-22.74 gram-6.74 gram-5.86 gram solution (Golytely) Allergies Allergy/AdvReac Type Severity Reaction Status Date / Time No Known Allergies Allergy Verified 06/28/24 09:15 Review of Systems 2 General: Reports: 10 or more systems reviewed and unremarkable except in HPI and below GI: Reports: abdominal pain and constipation PFSH ED 2 PFSH: Medical History Iron deficiency anemia Follicular lymphoma Hiatal hernia Urolithiasis Surgical History Hx of melanoma excision 01/25/23 Wide local excision of malignant melanoma right arm with Dr Jordan S/P extracorporeal shock wave therapy Family History Mother Cancer lung Social History Smoking and tobacco/nicotine status: current every day tobacco/nicotine user Quit status (tobacco/nicotine): has quit using Year quit tobacco: 2022 Former quit date comment: 20 years total use Alcohol intake: never Substance/Drug Use: never Marital status: Current occupational status: unemployed Physical Exam 2 Const: COMMON NORMALS: no acute distress, patient oriented x3 and no limitations GENERAL APPEARANCE: cooperative and comfortable HENMT: COMMON NORMALS: normocephalic, atraumatic, Normal nasal mucous membranes and turbinates present, moist oral mucous membranes and oropharynx normal HEAD & SCALP: normal to inspection, normocephalic and atraumatic F JAIDA & SINUS: normal facial exam NOSE: Normal nasal mucous membranes and turbinates present Eye: COMMON NORMALS: Equal, round and reactive pupils present, EOMs intact bilaterally and conjunctivae normal GENERAL EYE: appearance normal, both eyes and all related structures CONJUNCTIVA: Yes conjunctivae normal PUPIL: Yes Equal, round and reactive pupils present Neck/C-Spine: COMMON NORMALS: supple and no JVD Chest: COMMONS NORMALS: normal inspection of the chest Resp: COMMON NORMALS: normal respiratory effort and clear to auscultation bilaterally AUSCULTATION: clear to auscultation bilaterally Cardio: COMMON NORMALS: no JVD, regular rate, regular rhythm, No gallops present (Cardio), No murmurs present (Cardio) and No rub (Cardio) RATE: r egular rate RHYTHM: regular rhythm GI: COMMON NORMALS: Soft to palpation INSPECTION: Yes other (Some mild discomfort to palpation of the epigastric, right upper quadrant a) A USCULTATION: Yes normoactive bowel sounds PALPATION: Yes Soft to palpation : COMMON NORMALS: Yes no CVA tenderness BLADDER/KIDNEY EXAM: Yes no CVA tenderness Back/Pelvis: COMMON NORMALS: no CVA tenderness and thoracic and lumbar spine normal to inspection Extremity: COMMON NORMALS: normal to inspection Neuro: COMMON NORMALS: patient oriented x3 and CN's II-XII intact bilaterally Psych: COMMON NORMALS: mental status grossly normal, Normal thought process present and cooperative THOUGHT PROCESS: Normal thought process present Skin: COMMON NORMALS: no rashes or lesions noted, turgor normal and no jaundice GENERAL SKIN EXAM: no rashes or lesions noted and turgor normal Course 2 Vital Signs: Vital signs: Vital Signs Temperature 98.0 F 07/12/24 10:24 Pulse Rate 60 07/12/24 10:57 Respiratory Rate 17 07/12/24 10:57 Blood Pressure 132/100 07/12/24 10:57 Pulse Oximetry 96 07/12/24 10:57 Oxygen Delivery Me thod Room Air 07/12/24 10:24 MDM - Abdominal Pain Medical Decision Making Patient requested some pain medication. We did give her 0.5 mg of Dilaudid along with 4 mg of Zofran IV. She is feeling better. Her x-rays do reveal severe constipation. No obstruction. Labs are normal. I did place her on GoLytely. Recommended she follow-up with her primary care physician in 1 to 2 days if no relief. She was discharged in stable condition. Lab Data 07/12/24 10:46 07/12/24 10:46 Labs/Radiology: Radiology Impressions Chest/Abdomen X-ray 07/12/24 10:28 IMPRESSION: 1. No acute cardiopulmonary finding. Flat and erect abdomen. No bowel obstruction or free air. Large amount of retained stool throughout the colon. No sign of organ enlargement. Surgical clips noted in the region of the LEFT hip. Bony structures are otherwise unremarkable. IMPRESSION: 1. No acute abdominal process. Constipation. Laboratory Results WBC 5.94 10^3/uL (3.29-11.43) 07/12/24 10:46 RBC 4.48 10^6/uL (3.85-5.65) 07/12/24 10:46 Hgb 13.30 g/dL (11.27-16.99) 07/12/24 10:46 Hct 40.4 % (36-47) 07/12/24 10:46 MCV 90.2 fl (85-98) 07/12/24 10:46 MCH 29.7 pg (27-33) 07/12/24 10:46 MCHC 32.9 g/dL (30-55) 07/12/24 10:46 RDW 15.5 % (12.1-15.1) H 07/12/24 10:46 Plt Count 178 10^3/cmm (157-399) 07/12/24 10:46 MPV 9.4 fL (7.4-10.4) 07/12/24 10:46 Neut % (Auto) 82.0 % 07/12/24 10:46 Lymph % (Auto) 3.7 % 07/12/24 10:46 [place] % (Auto) 9.3 % 07/12/24 10:46 Eos % (Auto) 3.7 % 07/12/24 10:46 Baso % (Auto) 1.0 % 07/12/24 10:46 Neut # (Auto) 4.87 10^3/uL (1.8-7.7) 07/12/24 10:46 Lymph # (Auto) 0.2 10^3/uL (0.8-4.8) L 07/12/24 10:46 [place] # (Auto) 0.6 10^3/uL (0.2-0.9) 07/12/24 10:46 Eos # (Auto) 0.2 10^3/uL (0.0-0.8) 07/12/24 10:46 Baso # (Auto) 0.1 10^3/uL (0.0-0.1) 07/12/24 10:46 Nucleated RBC % (auto) 0 % 07/12/24 10:46 Nucleated RBCs # 0.0 /100WBC 07/12/24 10:46 Sodium 137 mmol/L (136-145) 07/12/24 10:46 Potassium 4.1 mmol/L (3.5-5.1) 07/12/24 10:46 Chloride 100 mmol/L (98-107) 07/12/24 10:46 Carbon Dioxide 24 mmol/L (22-29) 07/12/24 10:46 Anion Gap 17.1 (5-19) 07/12/24 10:46 BUN 14 mg/dL (6-20) 07/12/24 10:46 Creatinine 0.8 mg/dL (0.5-0.9) 07/12/24 10:46 GFR Calculation 73.7 mL/min (90-130) L 07/12/24 10:46 Glucose 95 mg/dL (65-115) 07/12/24 10:46 Calculated Osmolality 284 mOsm/kg (285-295) L 07/12/24 10:46 Calcium 9.6 mg/dL (8.5-10.5) 07/12/24 10:46 Total Bilirubin 0.2 mg/dL (0.15-1.2) 07/12/24 10:46 AST 27 U/L (0-32) 07/12/24 10:46 ALT 54 U/L (0-33) H 07/12/24 10:46 Alkaline Phosphatase 273 U/L (35-105) H 07/12/24 10:46 Total Protein 7.1 g/dL (6.6-8.7) 07/12/24 10:46 Albumin 4.3 g/dL (3.5-5.2) 07/12/24 10:46 Globulin 2.8 g/dL (1.3-4.6) 07/12/24 10:46 Lipase 44 U/L (13-60) 07/12/24 10:46 Urine Color Yellow (Yellow) 07/12/24 11:01 Urine Appearance Cloudy (CLEAR) A 07/12/24 11:01 Urine pH 6.5 (5-7) 07/12/24 11:01 Ur Specific [place] 1.025 (1.005-1.030) 07/12/24 11:01 Urine Protein 1+ (Negative) A 07/12/24 11:01 Urine Glucose (UA) Negative (Normal) 07/12/24 11:01 Urine Ketones Negative (Negative) 07/12/24 11:01 Urine Blood Negative (Negative) 07/12/24 11:01 Urine Nitrate Negative (Negative) 07/12/24 11:01 Urine Bilirubin Negative (Negative) 07/12/24 11:01 Urine Urobilinogen 1.0 mg/dL (Negative) 07/12/24 11:01 Ur Leukocyte Esterase Trace (Negative) A 07/12/24 11:01 Urine RBC 0-2 /hpf (0-2) 07/12/24 11:01 Urine WBC 6-10 /hpf (0-5) 07/12/24 11:01 Ur Squamous Epith Cells 11-20 /hpf (0-5) H 07/12/24 11:01 Amorphous Sediment Not Reportable 07/12/24 11:01 Urine Bacteria 3+ /hpf (NONE) H 07/12/24 11:01 Hyaline Casts 7.01 /lpf 07/12/24 11:01 All radiology interpretation(s) finalized by discharge Discharge Plan Discharge Patient Disposition: Home Clinical Impression: Constipation Qualifiers: Constipation type: drug induced constipation Qualified Code(s): K59.03 - Drug induced constipation Condition: Stable Prescriptions: New peg 3350-electrolytes [Golytely] 236-22.74-6.74 -5.86 gram recon soln 240 ml PO Q10M Qty: 4000 0RF Rx Instructions: until fecal effluent is clear No Action pantoprazole [Protonix] 40 mg tablet,delayed release (DR/EC) 40 mg PO BID 30 Days Qty: 60 3RF Discharge Orders: Discharge ED (Routine); Ordered 05/14/25 Ordered By: Fran Hernandez Referrals: Don Dodson DO [Primary Care Provider, Family Practice] Patient Instructions: Constipation (DC) Print Language: Sammarinese Coding Level of Care Code ED Media Associate for [facility]
[2024-07-12 11:41] VITALS: BP 129/82; PULSE 60; O2SAT 98
== END 2024-07-12 11:42 | disposition home or self-care (01) ==
PROVIDERS: Emergency Provider Emergency Medicine; PCP Electrodiagnostic Medicine
DX: K59.03 Drug induced constipation (principal); Z72.0 Tobacco use
CPT/HCPCS: 36415; 74022; 80053; 81001; 83690; 85025; 96374; 96375; 99284; J1171; J2405

== ENCOUNTER 2024-07-13 10:54 | Emergency (ER) | payer BC, MEDICAID, SELFPAY ==
[2024-07-13] VITALS (9 sets, daily range): BP systolic 127–155; BP diastolic 73–104; PULSE 87–106; RESP 18–20; TEMP 36.4; O2SAT 95–100; BMI 23.1
--- NOTE | 2024-07-13 12:05 | CTR_ITS ---
PROCEDURE INFORMATION: Exam: CT Abdomen And Pelvis Without Contrast Exam date and time: 07/13/2024 12:37 PM Age: 59 years old Clinical indication: Abdominal pain; Flank; Lower; Additional info: Flank pain TECHNIQUE: Imaging protocol: Computed tomography of the abdomen and pelvis without contrast. Radiation optimization: All CT scans at this facility use at least one of these dose optimization techniques: automated exposure control; mA and/or kV adjustment per patient size (includes targeted exams where dose is matched to clinical indication); or iterative reconstruction. COMPARISON: PT PET WB melanoma SUBSEQ [id number] 01/07/2024 2:29 PM RADIATION DOSE METRICS: Total DLP (mGy-cm): 395.94 FINDINGS: Lungs: Bibasilar atelectasis. Diaphragm: Moderate hiatal hernia. Liver: Normal appearance of the liver. Gallbladder and biliary ducts: No calcified stones or ductal dilation. Pancreas: No ductal dilation. Spleen: Unremarkable. Adrenal glands: Unremarkable. Kidneys and ureters: Punctate nonobstructing bilateral renal calculi. No hydronephrosis. Stomach and bowel: Duodenal diverticulum. No obstruction. No mucosal thickening. Appendix: Normal appendix. Intraperitoneal space: No free air. No significant fluid collection. Vasculature: Unremarkable. Lymph nodes: No enlarged lymph nodes. Urinary bladder: Unremarkable as visualized. Reproductive: Unremarkable as visualized. Bones/joints: Unremarkable. No acute fracture. Soft tissues: Unremarkable. CT/CT kidney stone [id number] IMPRESSION: No acute findings in the abdomen or pelvis.
[2024-07-13 12:43] LABS: Basophils # 0.1 10^3/uL (0.0-0.1); Basophils % 0.9 %; Eosinophils # 0.1 10^3/uL (0.0-0.8); Eosinophils % 2.3 %; Hematocrit 40.8 % (36-47); Lymphocytes # 0.3 10^3/uL (0.8-4.8); Lymphocytes % 4.8 %; Mean Corpuscular HGB Conc 33.1 g/dL (30-55); Mean Corpuscular Volume 87.6 fl (85-98); Mean Platelet Volume 10.2 fL (7.4-10.4); Monocytes # 0.6 10^3/uL (0.2-0.9); Monocytes % 11.1 %; Neutrophils # 4.56 10^3/uL (1.8-7.7); Neutrophils % 80.5 %; Nucleated Red Blood Cells % 0 %; Platelet Count 198 10^3/cmm (157-399); Red Blood Count 4.66 10^6/uL (3.85-5.65); Red Cell Distribution Width 15.5 % (12.1-15.1); White Blood Count 5.66 10^3/uL (3.29-11.43)
[2024-07-13 13:02] LABS: Alanine Aminotransferase 53 U/L (0-33); Albumin Level 4.4 g/dL (3.5-5.2); Alkaline Phosphatase 265 U/L (35-105); Aspartate Amino Transferase 36 U/L (0-32); Blood Urea Nitrogen 17 mg/dL (6-20); Calcium 10.1 mg/dL (8.5-10.5); Carbon Dioxide 22 mmol/L (22-29); Chloride 96 mmol/L (98-107); Creatinine Clr Calc Pharmacy 61.6479; Globulin 3.3 g/dL (1.3-4.6); Glomerular Filtration Rate 64.3 mL/min (90-130); Glucose 100 mg/dL (65-115); Lipase 28 U/L (13-60); Osmolality Calculated 280 mOsm/kg (285-295); Sodium 134 mmol/L (136-145); Total Bilirubin 0.4 mg/dL (0.15-1.2); Total Protein 7.7 g/dL (6.6-8.7)
--- NOTE | 2024-07-13 13:32 | ED_ITS ---
HPI - Abdominal Pain 2 General: Chief Complaint: Abdominal Pain Stated Complaint: abdominal pain Time Seen by Provider: 07/13/24 12:46 History of Present Illness: 59-year-old female presents to the emerg ency department with continued abdominal pain. She was seen yesterday in the ED and continues to have the same complaint. She reports getting jpeg-sft-drrurrt medications mag sulfate and stool softeners. When she had bowel movements all night but did not alleviate the pain. She says feels like something is twisted inside. Associated Symptoms: Reports diarrhea; Denies chills, dysuria, fever(s), nausea and vomiting Related Data Previous Rx's ?Medication ?Instructions ?Recorded pantoprazole 40 mg tablet,delayed 40 mg PO BID 30 days #60 tabs 02/21/24 release (Protonix) peg 3350-electrolytes 236 240 ml PO Q10M #4,000 mL gram-22.74 gram-6.74 gram-5.86 gram solution (Golytely) hydrocodone 5 mg-acetaminophen 325 1 tab PO Q6H PRN pa in #28 tabs 07/13/24 mg tablet promethazine 25 mg tablet 25 mg PO Q6H PRN nausea and 07/13/24 vomiting #20 tabs Allergies Allergy/AdvReac Type Severity Reaction Status Date / Time No Known Allergies Allergy Verified 06/28/24 09:15 Review of Systems 2 Const: Denies: fever(s), chills, body aches or night sweats Card: Denies: chest pain or palpitations Resp: Denies: dyspnea GI: Reports: abdominal pain and diarrhea; Denies: nausea or vomiting : Reports: flank pain; Denies: dysuria, urinary frequency or urinary urgency PFSH ED 2 PFSH: Medical History Iron deficiency anemia Follicular lymphoma Hiatal hernia Urolithiasis Surgical History Hx of melanoma excision 01/25/23 Wide local excision of malignant melanoma right arm with Dr Jordan S/P extracorporeal shock wave therapy Family History Mother Cancer lung Social History (Reviewed 05/15/25 @ 14:42 by MICHELLE Corrigan Smoking and tobacco/nicotine status: current every day tobacco/nicotine user Quit status (tobacco/nicotine): has quit using Year quit tobacco: 2022 Former quit date comment: 20 years total use Alcohol intake: never Substance/Drug Use: never Marital status: Current occupational status: unemployed Physical Exam 2 GI: COMMON NORMALS: Normal to inspection, nondistended, normoactive bowel sounds present, Soft to palpation and non-tender AUSCULTATION: Yes normoactive bowel sounds PALPATION: Yes Soft to palpation, No Tenderness to palpation present (GI), No Guarding due to palpation present (GI) and No Rigid due to palpation Course 2 Vital Signs: Vital signs: Vital Signs Temperature 97.5 F L 07/13/24 11:24 Pulse Rate 100 07/13/24 16:15 Respiratory Rate 18 07/13/24 15:21 Blood Pressure 134/100 07/13/24 16:15 Pulse Oximetry 100 07/13/24 16:15 Oxygen Delivery Me thod Room Air 07/13/24 15:00 MDM - Abdominal Pain Medical Decision Making CT negative responded to pain medications in the department. Discussed with her oncologist who recommends regular pain medications and follow-up in his office. No leukocytosis. Will discharge the patient home with hydrocodone promethazine clear liquid diet and advance as tolerated advised her against any further laxatives as she does not have a significant constipation at this point if symptoms worsen return to the emergency room Medical Records I reviewed the patient's medical records. Lab Data I reviewed the patient's lab results. 07/13/24 12:21 07/13/24 12:21 Labs/Radiology: Radiology Impressions Abdomen/Pelvis CT 07/13/24 12:05 IMPRESSION: No acute findings in the abdomen or pelvis. Laboratory Results WBC 5.66 10^3/uL (3.29-11.43) 07/13/24 12:21 RBC 4.66 10^6/uL (3.85-5.65) 07/13/24 12:21 Hgb 13.50 g/dL (11.27-16.99) 07/13/24 12:21 Hct 40.8 % (36-47) 07/13/24 12:21 MCV 87.6 fl (85-98) 07/13/24 12:21 MCH 29.0 pg (27-33) 07/13/24 12:21 MCHC 33.1 g/dL (30-55) 07/13/24 12:21 RDW 15.5 % (12.1-15.1) H 07/13/24 12:21 Plt Count 198 10^3/cmm (157-399) 07/13/24 12:21 MPV 10.2 fL (7.4-10.4) 07/13/24 12:21 Neut % (Auto) 80.5 % 07/13/24 12:21 Lymph % (Auto) 4.8 % 07/13/24 12:21 [place] % (Auto) 11.1 % 07/13/24 12:21 Eos % (Auto) 2.3 % 07/13/24 12:21 Baso % (Auto) 0.9 % 07/13/24 12:21 Neut # (Auto) 4.56 10^3/uL (1.8-7.7) 07/13/24 12:21 Lymph # (Auto) 0.3 10^3/uL (0.8-4.8) L 07/13/24 12:21 [place] # (Auto) 0.6 10^3/uL (0.2-0.9) 07/13/24 12:21 Eos # (Auto) 0.1 10^3/uL (0.0-0.8) 07/13/24 12:21 Baso # (Auto) 0.1 10^3/uL (0.0-0.1) 07/13/24 12:21 Nucleated RBC % (auto) 0 % 07/13/24 12:21 Nucleated RBCs # 0.0 /100WBC 07/13/24 12:21 Sodium 134 mmol/L (136-145) L 07/13/24 12:21 Potassium 4.0 mmol/L (3.5-5.1) 07/13/24 12:21 Chloride 96 mmol/L (98-107) L 07/13/24 12:21 Carbon Dioxide 22 mmol/L (22-29) 07/13/24 12:21 Anion Gap 20.0 (5-19) H 07/13/24 12:21 BUN 17 mg/dL (6-20) 07/13/24 12:21 Creatinine 0.9 mg/dL (0.5-0.9) 07/13/24 12:21 GFR Calculation 64.3 mL/min (90-130) L 07/13/24 12:21 Glucose 100 mg/dL (65-115) 07/13/24 12:21 Calculated Osmolality 280 mOsm/kg (285-295) L 07/13/24 12:21 Calcium 10.1 mg/dL (8.5-10.5) 07/13/24 12:21 Total Bilirubin 0.4 mg/dL (0.15-1.2) 07/13/24 12:21 AST 36 U/L (0-32) H 07/13/24 12:21 ALT 53 U/L (0-33) H 07/13/24 12:21 Alkaline Phosphatase 265 U/L (35-105) H 07/13/24 12:21 Total Protein 7.7 g/dL (6.6-8.7) 07/13/24 12:21 Albumin 4.4 g/dL (3.5-5.2) 07/13/24 12:21 Globulin 3.3 g/dL (1.3-4.6) 07/13/24 12:21 Lipase 28 U/L (13-60) 07/13/24 12:21 Urine Color Yellow (Yellow) 07/13/24 14:00 Urine Appearance Cloudy (CLEAR) A 07/13/24 14:00 Urine pH 8.5 (5-7) A 07/13/24 14:[address] [place] 1.020 (1.005-1.030) 07/13/24 14:00 Urine Protein Trace (Negative) A 07/13/24 14:00 Urine Glucose (UA) Negative (Normal) 07/13/24 14:00 Urine Ketones 1+ (Negative) H 07/13/24 14:00 Urine Blood Negative (Negative) 07/13/24 14:00 Urine Nitrate Negative (Negative) 07/13/24 14:00 Urine Bilirubin Negative (Negative) 07/13/24 14:00 Urine Urobilinogen 1.0 mg/dL (Negative) 07/13/24 14:00 Ur Leukocyte Esterase Trace (Negative) A 07/13/24 14:00 Urine RBC 0-2 /hpf (0-2) 07/13/24 14:00 Urine WBC 0-5 /hpf (0-5) 07/13/24 14:00 Ur Squamous Epith Cells 0-5 /hpf (0-5) 07/13/24 14:00 Amorphous Sediment Not Reportable 07/13/24 14:00 Urine Bacteria Trace /hpf (NONE) 07/13/24 14:00 Hyaline Casts 0.40 /lpf 07/13/24 14:00 All radiology interpretation(s) finalized by discharge Discharge Plan Discharge Patient Disposition: Home Clinical Impression: Abdominal pain Follicular lymphoma Qualifiers: Follicular lymphoma type: unspecified follicular type Lymphoma site: multiple regions Qualified Code(s): C82.98 - Follicular lymphoma, unspecified, lymph nodes of multiple sites Condition: Stable Prescriptions: New hydrocodone-acetaminophen 5-325 mg tablet 1 tab PO Q6H PRN (Reason: pain) Qty: 28 0RF promethazine 25 mg tablet 25 mg PO Q6H PRN (Reason: nausea and vomiting) Qty: 20 0RF No Action pantoprazole [Protonix] 40 mg tablet,delayed release (DR/EC) 40 mg PO BID 30 Days Qty: 60 3RF peg 3350-electrolytes [Golytely] 236-22.74-6.74 -5.86 gram recon soln 240 ml PO Q10M Qty: 4000 0RF Rx Instructions: until fecal effluent is clear Discharge Orders: Discharge ED (Routine); Ordered 07/13/24 Ordered By: Aroldo Wisdom Referrals: Don Dodson DO [Primary Care Provider, Family Practice] Discharge Diet: Usual diet Discharge Activity: Increase activity as tolerated Patient Instructions: Abdominal Pain (ED), Opioid Safety, Pain Management Activity Restrictions/Additional Instructions: Thank you for choosing [facility] for your healthcare needs today. It is very important that you follow up as instructed or that you return to the Emergency Department should you have concerns or if your condition changes or worsens in any way. You are seen in the emergency room with abdominal pain. The majority the constipation has been relieved. Suspect the abdominal pain is related to your lymphoma. I discussed with your oncologist who we recommend pain medications and nausea medicines and follow-up with the oncology team next week. Clear liquid diet advance as tolerated Print Language: Ukrainian Coding Level of Care Code ED [employer] Coordinator for Ryan Benton
[2024-07-13] MEDS: ketorolac 60 mg/2 mL INJ IM (14:12)
[2024-07-13 14:16] LABS: Bilirubin Urine Negative (Negative); Blood Urine Negative (Negative); Glucose Urine UA Negative (Normal); Ketones Urine 1+ (Negative); Leukocyte Esterase Urine Trace (Negative); Nitrate Urine Negative (Negative); Protein Urine Trace (Negative); Urine Appearance Cloudy (CLEAR); Urine Color Yellow (Yellow); pH Urine 8.5 (5-7)
[2024-07-13 14:18] LABS: Add Urine Microscopic? YES; Bacteria Urine Trace /hpf; RBC Urine 0-2 /hpf (0-2); Squamous Epithelial Cell Urine 0-5 /hpf (0-5); WBC Urine 0-5 /hpf (0-5)
[2024-07-13] MEDS: fentaNYL 50 mcg/mL INJ 2mL IVP (15:21)
== END 2024-07-13 16:16 | disposition home or self-care (01) ==
PROVIDERS: Emergency Provider Family Medicine; PCP Electrodiagnostic Medicine
DX: R10.9 Unspecified abdominal pain (principal); C82.98 Follicular lymphoma, unspecified, lymph nodes of multiple sites; Z72.0 Tobacco use; Z85.820 Personal history of malignant melanoma of skin
CPT/HCPCS: 36415; 74176; 80053; 81001; 83690; 85025; 96372; 96374; 99285; J1885; J3010

== ENCOUNTER 2024-07-15 11:20 | Emergency (ER) | payer BC, MEDICAID, SELFPAY ==
[2024-07-15 11:27] VITALS: BP 137/94; PULSE 110; RESP 20; TEMP 36.6; O2SAT 100; BMI 22.3
--- NOTE | 2024-07-15 12:46 | CTR_ITS ---
PROCEDURE INFORMATION: Exam: CTA Abdomen and Pelvis With Contrast Exam date and time: 07/15/2024 1:28 PM Age: 59 years old Clinical indication: Abdominal pain; Generalized; Additional info: Abd pain, out of proportion to exam. TECHNIQUE: Imaging protocol: Computed tomographic angiography of the abdomen and pelvis with contrast. Exam focused on the arteries. 3D rendering (Not supervised by radiologist): MIP and/or 3D reconstructed images were created by the technologist. Radiation optimization: All CT scans at this facility use at least one of these dose optimization techniques: automated exposure control; mA and/or kV adjustment per patient size (includes targeted exams where dose is matched to clinical indication); or iterative reconstruction. Contrast material: OMNI 350; Contrast volume: 84 ml; Contrast route: INTRAVENOUS (IV); COMPARISON: CT kidney stone [id number] 07/13/2024 12:37 PM RADIATION DOSE METRICS: Total DLP (mGy-cm): 385.68 FINDINGS: Aorta: No aortic aneurysm. No aortic dissection. Mild aortoiliac atherosclerosis. Celiac trunk and mesenteric arteries: Mild narrowing at the proximal origin of the celiac artery likely secondary to median arcuate ligament compression. The superior mesenteric and inferior mesenteric arteries are widely patent. Renal arteries: No occlusion or significant stenosis. Right iliac arteries: No occlusion or significant stenosis. Left iliac arteries: No occlusion or significant stenosis. Liver: No mass. Gallbladder and biliary ducts: Unremarkable. No calcified stones. No ductal dilation. Pancreas: Unremarkable. No mass. No ductal dilation. Spleen: Unremarkable. No splenomegaly. Adrenal glands: Unremarkable. No mass. Kidneys and ureters: Punctate nonobstructing nephrolithiasis in the left kidney. No solid mass. No hydronephrosis. Stomach and bowel: Large duodenal diverticulum is slightly increased measuring 4.3 cm (previously measuring 3.5 cm). No obstruction. Large sliding hiatal hernia appears stable with a predominant intrathoracic portion of the stomach. Mild wall thickening of the intrathoracic portions of the stomach as well as the gastroesophageal junction. Punctate hyperdensity is noted within the gastric lumen possibly related to recently ingested contents/medication. Appendix: No evidence of appendicitis. Intraperitoneal space: Unremarkable. No free air. No significant fluid collection. Lymph nodes: Unremarkable. No enlarged lymph nodes. Urinary bladder: Unremarkable. No mass. Reproductive: Unremarkable as visualized. Bones/joints: No acute fracture. Mild multilevel degenerative disease of the thoracolumbar spine. Soft tissues: Small fat containing umbilical hernia. CT/CT angio abdomen pelvis [id number] IMPRESSION: 1. Large sliding hiatal hernia with a predominant portion of an intrathoracic stomach not significantly changed from prior examination. There is possible mild wall thickening noted of the intrathoracic portions of the stomach as well as the gastroesophageal junction which may represent gastritis/esophagitis. GI consultation can be obtained as clinically indicated. 2. Increasing size of proximal duodenal diverticulum now measuring up to 4.3 cm. 3. Narrowing of the proximal celiac artery likely secondary to compression from the median arcuate ligament suggesting possibility of median arcuate ligament syndrome.
[2024-07-15] MEDS: sodium chloride 0.9% 1,000 ML 999 ML IV (13:25)
[2024-07-15] MEDS: HYDROmorphone 0.5 MG/0.5 ML INJ IVP (13:25)
[2024-07-15] MEDS: ondansetron 2 mg/ML SDV 2 mL 4 MG IVP ×2 (13:25→19:21)
[2024-07-15 13:31] LABS: Basophils % 0.4 %; Eosinophils % 0.1 %; Hematocrit 40.4 % (36-47); Lymphocytes # 0.2 10^3/uL (0.8-4.8); Lymphocytes % 2.5 %; Mean Corpuscular HGB Conc 33.7 g/dL (30-55); Mean Corpuscular Hemoglobin 29.5 pg (27-33); Mean Corpuscular Volume 87.6 fl (85-98); Mean Platelet Volume 9.1 fL (7.4-10.4); Monocytes # 0.7 10^3/uL (0.2-0.9); Monocytes % 9.6 %; Neutrophils # 5.88 10^3/uL (1.8-7.7); Neutrophils % 87.1 %; Nucleated Red Blood Cells % 0 %; Platelet Count 146 10^3/cmm (157-399); Red Blood Count 4.61 10^6/uL (3.85-5.65); Red Cell Distribution Width 15.2 % (12.1-15.1); White Blood Count 6.76 10^3/uL (3.29-11.43)
[2024-07-15] MEDS: iohexol 350 mg/mL 500 mL Btl (per mL) IV (13:35)
[2024-07-15 13:51] VITALS: BP 184/114; PULSE 95; O2SAT 95
[2024-07-15 13:56] LABS: Alanine Aminotransferase 52 U/L (0-33); Albumin Level 4.6 g/dL (3.5-5.2); Alkaline Phosphatase 217 U/L (35-105); Anion Gap 20.6 (5-19); Aspartate Amino Transferase 37 U/L (0-32); Blood Urea Nitrogen 18 mg/dL (6-20); Carbon Dioxide 21 mmol/L (22-29); Chloride 96 mmol/L (98-107); Creatinine Clr Calc Pharmacy 68.2561; Glomerular Filtration Rate 73.7 mL/min (90-130); Glucose 93 mg/dL (65-115); Lactate Dehydrogenase 218 U/L (135-214); Lipase 116 U/L (13-60); Osmolality Calculated 280 mOsm/kg (285-295); Potassium 3.6 mmol/L (3.5-5.1); Sodium 134 mmol/L (136-145); Total Bilirubin 0.3 mg/dL (0.15-1.2); Total Protein 7.6 g/dL (6.6-8.7)
[2024-07-15 14:57] LABS: Bilirubin Urine Negative (Negative); Blood Urine Negative (Negative); Glucose Urine UA Negative (Normal); Ketones Urine 1+ (Negative); Leukocyte Esterase Urine Negative (Negative); Nitrate Urine Negative (Negative); Protein Urine Negative (Negative); Urine Appearance Clear (CLEAR); Urine Color Yellow (Yellow); Urobilinogen Urine 0.2 mg/dL (Negative)
--- NOTE | 2024-07-15 14:58 | W.ED.ABDPA2 ---
HPI - Abdominal Pain General: Chief Complaint: Abdominal Pain Stated Complaint: abd pain Time Seen by Provider: 07/15/24 12:11 Source: patient History of Present Illness: Severe abdominal and back pain. History of lymphoma. She does have on PET scan some nodes around the T10 level. Pain is epigastric and severe. Has been seen in the ER 2 other times this week. This is the third visit in 1 week. No previous pattern of frequent ER visits. No fever. Having severe nausea. Patient calmly begging for some relief. She does appear ill. Related Data Home Medications ?Medication ?Instructions ?Recorded ?Confirmed ibuprofen 200 mg tablet (Advil) 600 mg PO Q6H PRN Fever Or Pain 07/15/24 07/15/24 lorazepam 0.5 mg tablet 0.5 mg PO Q6H PRN Nausea And 07/15/24 07/15/24 Vomiting Previous Rx's ?Medication ?Instructions ?Recorded pantoprazole 40 mg tablet,delayed 40 mg PO BID 30 days #60 tabs 02/21/24 release (Protonix) peg 3350-electrolytes 236 240 ml PO Q10M #4,000 mL 07/12/24 gram-22.74 gram-6.74 gram-5.86 gram solution (Golytely) hydrocodone 5 mg-acetaminophen 325 1 tab PO Q6H PRN pain #28 tabs 07/13/24 mg tablet promethazine 25 mg tablet 25 mg PO Q6H PRN nausea and 07/13/24 vomiting #20 tabs Allergies Allergy/AdvReac Type Severity Reaction Status Date / Time No Known Allergies Allergy Verified 06/28/24 09:15 Review of Systems General: Reports: 10 or more systems reviewed and unremarkable except in HPI and below PFSH ED PFSH: Medical History Iron deficiency anemia Follicular lymphoma Hiatal hernia Urolithiasis Surgical History Hx of melanoma excision 01/25/23 Wide local excision of malignant melanoma right arm with Dr Jordan S/P extracorporeal shock wave therapy Family History Mother Cancer lung Social History (Reviewed 07/13/24 @ 14:42 by MICHELLE Corrigan Smoking and tobacco/nicotine status: current every day tobacco/nicotine user Quit status (tobacco/nicotine): has quit using Year quit tobacco: 2022 Former quit date comment: 20 years total use Alcohol intake: never Substance/Drug Use: never Marital status: Current occupational status: unemployed Physical Exam Const: COMMON NORMALS: average body habitus, patient oriented x3, alert and well nourished GENERAL APPEARANCE: well kempt, well developed, in distress and ill appearing HENMT: COMMON NORMALS: normocephalic, atraumatic and Normal nasal mucous membranes and turbinates present HEAD & SCALP: normocephalic and atraumatic NOSE: Normal nasal mucous membranes and turbinates present Eye: COMMON NORMALS: Equal, round and reactive pupils present and EOMs intact bilaterally PUPIL: Yes Equal, round and reactive pupils present Neck/C-Spine: COMMON NORMALS: full ROM Lymph: LYMPHATIC: no lymphadenopathy noted Chest: CHEST: Yes Symmetrical chest wall rise Resp: COMMON NORMALS: normal respiratory effort and No retractions Cardio: COMMON NORMALS: regular rhythm, S1 normal heart sound present and S2 normal heart sound present RATE: tachycardic RHYTHM: regular rhythm HEART SOUNDS: S1 normal heart sound present and S2 normal heart sound present GI: COMMON NORMALS: Normal to inspection, nondistended, normoactive bowel sounds present, Soft to palpation and non-tender AUSCULTATION: Yes normoactive bowel sounds PALPATION: Yes Soft to palpation, No Tenderness to palpation present (GI), No Guarding due to palpation present (GI) and No Rigid due to palpation : COMMON NORMALS: Yes no CVA tenderness BLADDER/KIDNEY EXAM: Yes no CVA tenderness Back/Pelvis: COMMON NORMALS: no CVA tenderness Extremity: COMMON NORMALS: normal to inspection, full ROM and capillary refill normal Neuro: COMMON NORMALS: patient oriented x3 SENSORIUM/ORIENTATION: Yes alert Psych: APPEARANCE: Yes well kempt Course Consultations: Consultation #1: Discussed the case with Dr. Bonilla of General Surgery. She is going to review the chart and imaging and then will call back. Time: 14:58 Consultation #2: Pleasant patient consultation Dr. Bonilla. She is in agreement that is a possible diagnosis of MALS however she does not perform that surgery and it would need more workup. I have now discussed the case with vascular surgery at [facility]. Dr. Mcknight. He reports that it would be a very odd presentation of this but he is happy to consult on her case if she comes to [facility]. They are now paging hospitalist. Time: 16:33 Consultation #3: Dr. Zavala accepts via 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 Multiple ER visits this week. Pain is well out of portion to the exam and I did not feel that patient had a secondary gain. As such performed further workup with a CTA of the abdomen pelvis. Revealing a known hiatal hernia that is not volvulized. A duodenal diverticulum and then the possibility of median arcuate ligament syndrome. Due to this possibility patient is be worked up further. However in the immediate term she is to be admitted for intractable abdominal pain. Her course is somewhat complicated given that she is currently undergoing chemotherapy for follicular lymphoma. Will have patient transferred to [facility] for further care. Vascular surgery aware of patient's possible diagnosis. While I agree that technically this can be worked up outpatient as far as MALS. Patient does have intractable pain and needs admission for this at minimum. As such the diagnosis will be intractable abdominal pain with a provisional diagnosis of MALS. Medical Records I reviewed the patient's medical records. Lab Data I reviewed the patient's lab results. 07/15/24 13:23 07/15/24 13:23 Labs/Radiology: Radiology Impressions Abdomen/Pelvis CTA 07/15/24 12:46 IMPRESSION: 1. Large sliding hiatal hernia with a predominant portion of an intrathoracic stomach not significantly changed from prior examination. There is possible mild wall thickening noted of the intrathoracic portions of the stomach as well as the gastroesophageal junction which may represent gastritis/esophagitis. GI consultation can be obtained as clinically indicated. 2. Increasing size of proximal duodenal diverticulum now measuring up to 4.3 cm. 3. Narrowing of the proximal celiac artery likely secondary to compression from the median arcuate ligament suggesting possibility of median arcuate ligament syndrome. Laboratory Results WBC 6.76 10^3/uL (3.29-11.43) 07/15/24 13:23 RBC 4.61 10^6/uL (3.85-5.65) 07/15/24 13:23 Hgb 13.60 g/dL (11.27-16.99) 07/15/24 13:23 Hct 40.4 % (36-47) 07/15/24 13:23 MCV 87.6 fl (85-98) 07/15/24 13:23 MCH 29.5 pg (27-33) 07/15/24 13:23 MCHC 33.7 g/dL (30-55) 07/15/24 13:23 RDW 15.2 % (12.1-15.1) H 07/15/24 13:23 Plt Count 146 10^3/cmm (157-399) L 07/15/24 13:23 MPV 9.1 fL (7.4-10.4) 07/15/24 13:23 Neut % (Auto) 87.1 % 07/15/24 13:23 Lymph % (Auto) 2.5 % 07/15/24 13:23 [place] % (Auto) 9.6 % 07/15/24 13:23 Eos % (Auto) 0.1 % 07/15/24 13:23 Baso % (Auto) 0.4 % 07/15/24 13:23 Neut # (Auto) 5.88 10^3/uL (1.8-7.7) 07/15/24 13:23 Lymph # (Auto) 0.2 10^3/uL (0.8-4.8) L 07/15/24 13:23 [place] # (Auto) 0.7 10^3/uL (0.2-0.9) 07/15/24 13:23 Eos # (Auto) 0.0 10^3/uL (0.0-0.8) 07/15/24 13:23 Baso # (Auto) 0.0 10^3/uL (0.0-0.1) 07/15/24 13:23 Nucleated RBC % (auto) 0 % 07/15/24 13:23 Nucleated RBCs # 0.0 /100WBC 07/15/24 13:23 Sodium 134 mmol/L (136-145) L 07/15/24 13:23 Potassium 3.6 mmol/L (3.5-5.1) 07/15/24 13:23 Chloride 96 mmol/L (98-107) L 07/15/24 13:23 Carbon Dioxide 21 mmol/L (22-29) L 07/15/24 13:23 Anion Gap 20.6 (5-19) H 07/15/24 13:23 BUN 18 mg/dL (6-20) 07/15/24 13:23 Creatinine 0.8 mg/dL (0.5-0.9) 07/15/24 13:23 GFR Calculation 73.7 mL/min (90-130) L 07/15/24 13:23 Glucose 93 mg/dL (65-115) 07/15/24 13:23 Calculated Osmolality 280 mOsm/kg (285-295) L 07/15/24 13:23 Lactic Acid 1.0 mmol/L (0.5-2.2) 07/15/24 13:23 Calcium 10.0 mg/dL (8.5-10.5) 07/15/24 13:23 Total Bilirubin 0.3 mg/dL (0.15-1.2) 07/15/24 13:23 AST 37 U/L (0-32) H 07/15/24 13:23 ALT 52 U/L (0-33) H 07/15/24 13:23 Alkaline Phosphatase 217 U/L (35-105) H 07/15/24 13:23 Lactate Dehydrogenase 218 U/L (135-214) H 07/15/24 13:23 Total Protein 7.6 g/dL (6.6-8.7) 07/15/24 13:23 Albumin 4.6 g/dL (3.5-5.2) 07/15/24 13:23 Globulin 3.0 g/dL (1.3-4.6) 07/15/24 13:23 Lipase 116 U/L (13-60) H 07/15/24 13:23 Urine Color Yellow (Yellow) 07/15/24 14:50 Urine Appearance Clear (CLEAR) 07/15/24 14:50 Urine pH 6.0 (5-7) 07/15/24 14:50 Ur Specific [place] 1.048 (1.005-1.030) H 07/15/24 14:50 Urine Protein Negative (Negative) 07/15/24 14:50 Urine Glucose (UA) Negative (Normal) 07/15/24 14:50 Urine Ketones 1+ (Negative) H 07/15/24 14:50 Urine Blood Negative (Negative) 07/15/24 14:50 Urine Nitrate Negative (Negative) 07/15/24 14:50 Urine Bilirubin Negative (Negative) 07/15/24 14:50 Urine Urobilinogen 0.2 mg/dL (Negative) 07/15/24 14:50 Ur Leukocyte Esterase Negative (Negative) 07/15/24 14:50 Urine RBC 0-2 /hpf (0-2) 07/15/24 14:50 Urine WBC 0-5 /hpf (0-5) 07/15/24 14:50 Ur Squamous Epith Cells 0-5 /hpf (0-5) 07/15/24 14:50 Amorphous Sediment Not Reportable 07/15/24 14:50 Urine Bacteria None seen /hpf (NONE) 07/15/24 14:50 Hyaline Casts 0.40 /lpf 07/15/24 14:50 All radiology interpretation(s) finalized by discharge Discharge Plan Discharge Patient Disposition: Xfer Short-Term Hosp Clinical Impression: Intractable abdominal pain, Median arcuate ligament syndrome Condition: Stable Referrals: Don Dodson DO [Primary Care Provider, [facility]] Patient Instructions: Abdominal Pain (ED) Print Language: Serbian Coding Level of Care Code ED Dramatic Critic for Ryan Benton
[2024-07-15 15:02] LABS: Add Urine Microscopic? YES; Bacteria Urine None Seen /hpf; RBC Urine 0-2 /hpf (0-2); Specific Gravity, Urine 1.048 (1.005-1.030); Squamous Epithelial Cell Urine 0-5 /hpf (0-5); WBC Urine 0-5 /hpf (0-5)
[2024-07-15 15:17] VITALS: BP 165/106; PULSE 103; O2SAT 99
[2024-07-15] MEDS: HYDROmorphone 0.5 MG/0.5 ML INJ 1 MG IVP ×3 (15:17→22:23)
[2024-07-15 17:38] VITALS: BP 155/129; PULSE 113; O2SAT 96
[2024-07-15 18:37] VITALS: BP 162/92; PULSE 99; O2SAT 95
[2024-07-15 22:30] VITALS: BP 145/120; PULSE 103; RESP 16; O2SAT 92
--- NOTE | 2024-07-15 22:49 | PC.NURSE ---
Gave bedside report to DALE Nathan EMT on patient status prior to transport.
== END 2024-07-15 23:00 | disposition short-term general hospital (02) ==
PROVIDERS: Emergency Provider Emergency Medicine; PCP Electrodiagnostic Medicine
DX: R10.9 Unspecified abdominal pain (principal); I77.4 Celiac artery compression syndrome; Z87.891 Personal history of nicotine dependence
CPT/HCPCS: 74174; 80053; 81001; 83605; 83615; 83690; 85025; 87040; 96361; 96374; 96375; 96376; 99285; J1171; J2405; J7030

== ENCOUNTER 2024-07-26 07:45 | Oncology outpatient (recurring) (ONCR) | payer BC, MEDICAID, SELFPAY ==
[2024-07-06 15:03] LABS: Basophils # 0.2 10^3/uL (0.0-0.1); Basophils % 0.9 %; Eosinophils # 0.1 10^3/uL (0.0-0.8); Eosinophils % 0.5 %; Hematocrit 37.6 % (36-47); Lymphocytes # 0.4 10^3/uL (0.8-4.8); Lymphocytes % 2.2 %; Mean Corpuscular HGB Conc 32.4 g/dL (30-55); Mean Corpuscular Hemoglobin 29.6 pg (27-33); Mean Corpuscular Volume 91.3 fl (85-98); Mean Platelet Volume 9.3 fL (7.4-10.4); Monocytes # 1.8 10^3/uL (0.2-0.9); Monocytes % 9.3 %; Neutrophils # 16.37 10^3/uL (1.8-7.7); Neutrophils % 83.4 %; Nucleated Red Blood Cells % 0 %; Platelet Count 147 10^3/cmm (157-399); Red Blood Count 4.12 10^6/uL (3.85-5.65); Red Cell Distribution Width 16.1 % (12.1-15.1); White Blood Count 19.63 10^3/uL (3.29-11.43)
[2024-07-06 15:24] LABS: Alanine Aminotransferase 112 U/L (0-33); Albumin Level 4.1 g/dL (3.5-5.2); Alkaline Phosphatase 345 U/L (35-105); Anion Gap 17.3 (5-19); Aspartate Amino Transferase 52 U/L (0-32); Blood Urea Nitrogen 18 mg/dL (6-20); Carbon Dioxide 23 mmol/L (22-29); Chloride 104 mmol/L (98-107); Globulin 2.4 g/dL (1.3-4.6); Glomerular Filtration Rate 85.9 mL/min (90-130); Glucose 130 mg/dL (65-115); Lactate Dehydrogenase 223 U/L (135-214); Osmolality Calculated 294 mOsm/kg (285-295); Potassium 4.3 mmol/L (3.5-5.1); Sodium 140 mmol/L (136-145); Total Bilirubin 0.2 mg/dL (0.15-1.2); Total Protein 6.5 g/dL (6.6-8.7)
[2024-07-19 11:39] LABS: Basophils % 0.4 %; Eosinophils # 0.3 10^3/uL (0.0-0.8); Eosinophils % 6.1 %; Hematocrit 30.1 % (36-47); Lymphocytes # 0.6 10^3/uL (0.8-4.8); Lymphocytes % 10.8 %; Mean Corpuscular HGB Conc 33.2 g/dL (30-55); Mean Corpuscular Hemoglobin 29.7 pg (27-33); Mean Corpuscular Volume 89.3 fl (85-98); Mean Platelet Volume 9.1 fL (7.4-10.4); Monocytes # 0.6 10^3/uL (0.2-0.9); Monocytes % 11.8 %; Neutrophils % 70.7 %; Nucleated Red Blood Cells % 0 %; Platelet Count 92 10^3/cmm (157-399); Red Blood Count 3.37 10^6/uL (3.85-5.65); Red Cell Distribution Width 15.2 % (12.1-15.1); White Blood Count 5.09 10^3/uL (3.29-11.43)
[2024-07-19 11:58] LABS: Alanine Aminotransferase 37 U/L (0-33); Albumin Level 3.6 g/dL (3.5-5.2); Alkaline Phosphatase 188 U/L (35-105); Anion Gap 16.6 (5-19); Aspartate Amino Transferase 28 U/L (0-32); Blood Urea Nitrogen 14 mg/dL (6-20); Calcium 8.3 mg/dL (8.5-10.5); Carbon Dioxide 18 mmol/L (22-29); Chloride 106 mmol/L (98-107); Globulin 2.3 g/dL (1.3-4.6); Glomerular Filtration Rate 102.7 mL/min (90-130); Glucose 104 mg/dL (65-115); Lactate Dehydrogenase 192 U/L (135-214); Osmolality Calculated 285 mOsm/kg (285-295); Potassium 3.6 mmol/L (3.5-5.1); Sodium 137 mmol/L (136-145); Total Bilirubin 0.2 mg/dL (0.15-1.2); Total Protein 5.9 g/dL (6.6-8.7)
[2024-07-26 07:46] LABS: Eosinophils # 0.3 10^3/uL (0.0-0.8); Eosinophils % 8.1 %; Hematocrit 32.6 % (36-47); Lymphocytes # 0.4 10^3/uL (0.8-4.8); Lymphocytes % 10.8 %; Mean Corpuscular HGB Conc 33.1 g/dL (30-55); Mean Corpuscular Hemoglobin 28.9 pg (27-33); Mean Corpuscular Volume 87.2 fl (85-98); Mean Platelet Volume 8.7 fL (7.4-10.4); Monocytes # 0.5 10^3/uL (0.2-0.9); Monocytes % 13.4 %; Neutrophils # 2.53 10^3/uL (1.8-7.7); Neutrophils % 66.4 %; Nucleated Red Blood Cells % 0 %; Platelet Count 109 10^3/cmm (157-399); Red Blood Count 3.74 10^6/uL (3.85-5.65); Red Cell Distribution Width 14.4 % (12.1-15.1); White Blood Count 3.81 10^3/uL (3.29-11.43)
[2024-07-26 08:07] LABS: Alanine Aminotransferase 31 U/L (0-33); Albumin Level 3.7 g/dL (3.5-5.2); Alkaline Phosphatase 241 U/L (35-105); Anion Gap 15.7 (5-19); Aspartate Amino Transferase 26 U/L (0-32); Blood Urea Nitrogen 10 mg/dL (6-20); Calcium 9.2 mg/dL (8.5-10.5); Carbon Dioxide 25 mmol/L (22-29); Chloride 101 mmol/L (98-107); Creatinine Clr Calc Pharmacy 80.0145; Globulin 2.6 g/dL (1.3-4.6); Glomerular Filtration Rate 85.9 mL/min (90-130); Glucose 116 mg/dL (65-115); Lactate Dehydrogenase 170 U/L (135-214); Osmolality Calculated 286 mOsm/kg (285-295); Potassium 3.7 mmol/L (3.5-5.1); Sodium 138 mmol/L (136-145); Total Bilirubin 0.2 mg/dL (0.15-1.2); Total Protein 6.3 g/dL (6.6-8.7)
[2024-07-26] MEDS: sodium chloride 0.9% 250 ML 75 ML IV (09:41)
[2024-07-26] MEDS: diphenhydrAMINE 50 mg/mL SDV 1mL 25 MG IVP (09:45)
[2024-07-26] MEDS: ondansetron 2 mg/ML SDV 2 mL 8 MG IVP (09:52)
[2024-07-26] MEDS: dexamethasone 4 mg/mL INJ 5 mL 12 MG IVP (09:58)
[2024-07-26] MEDS: acetaminophen 325 mg Tablet 650 MG PO (10:06)
[2024-07-26 10:40] VITALS: BP 124/85; PULSE 73; RESP 16; TEMP 36.3; O2SAT 98
[2024-07-26] MEDS: SODIUM CHLORIDE 0.9% IV ×2 (10:40→13:20)
[2024-07-26] MEDS: RITUXIMAB IV (10:40)
[2024-07-26 11:10] VITALS: BP 134/94; PULSE 87; RESP 16; TEMP 36.3; O2SAT 96
[2024-07-26 11:40] VITALS: BP 144/86; PULSE 82; RESP 16; TEMP 36.7; O2SAT 95
[2024-07-26 13:07] VITALS: BP 151/98; PULSE 92; RESP 16; TEMP 36.4; O2SAT 95
[2024-07-26] MEDS: BENDAMUSTINE IV (13:20)
[2024-07-26 13:53] VITALS: BP 120/85; PULSE 85; RESP 16; TEMP 36.2; O2SAT 96
== END 2024-07-26 23:59 | disposition home or self-care (01) ==
PROVIDERS: Nurse Practitioner Family; PCP Electrodiagnostic Medicine; Visit Provider Internal Medicine
DX: Z53.9 Procedure and treatment not carried out, unspecified reason; Z51.11 Encounter for antineoplastic chemotherapy; Z51.12 Encounter for antineoplastic immunotherapy; C85.90 Non-Hodgkin lymphoma, unspecified, unspecified site; Z79.52 Long term (current) use of systemic steroids; Z79.899 Other long term (current) drug therapy; Z79.620 Long term (current) use of immunosuppressive biologic
CPT/HCPCS: 36591; 80053; 83615; 85025; 96375; 96413; 96415; 96417; J1100; J1200; J2405; J7040; J7050; J9034; J9312; J9999

== ENCOUNTER 2024-07-27 09:50 | Oncology outpatient (recurring) (ONCR) | payer BC, MEDICAID, SELFPAY ==
[2024-07-27 10:18] VITALS: BP 134/85; PULSE 85; RESP 18; TEMP 36.2; O2SAT 96
[2024-07-27] MEDS: sodium chloride 0.9% 250 ML IV (10:42)
[2024-07-27] MEDS: palonosetron 0.25 mg/5 mL SDV IVP (10:44)
[2024-07-27] MEDS: dexamethasone 4 mg/mL INJ 5 mL 12 MG IVP (10:45)
[2024-07-27] MEDS: aprepitant 130 mg/18 ml SDV IVP (10:47)
[2024-07-27] MEDS: SODIUM CHLORIDE 0.9% IV (11:27)
[2024-07-27] MEDS: BENDAMUSTINE IV (11:27)
[2024-07-27 12:20] VITALS: BP 124/78; PULSE 74; RESP 17; TEMP 36.4; O2SAT 94
[2024-07-27] MEDS: pegfilgrastim 6 mg/0.6 mL Kit (onpro) SUBCUT (12:20)
== END 2024-07-27 23:59 | disposition home or self-care (01) ==
PROVIDERS: PCP Electrodiagnostic Medicine; Visit Provider Internal Medicine
DX: Z51.11 Encounter for antineoplastic chemotherapy (principal); C85.90 Non-Hodgkin lymphoma, unspecified, unspecified site; Z79.52 Long term (current) use of systemic steroids; Z79.899 Other long term (current) drug therapy
CPT/HCPCS: 96375; 96377; 96413; J0185; J1100; J2469; J2506; J7050; J9034; J9999

== ENCOUNTER 2024-08-23 13:54 | Oncology outpatient (recurring) (ONCR) | payer BC, MEDICAID, SELFPAY ==
[2024-08-02 10:08] LABS: Basophils % 0.5 %; Eosinophils # 0.2 10^3/uL (0.0-0.8); Eosinophils % 5.2 %; Hematocrit 33.1 % (36-47); Lymphocytes # 0.2 10^3/uL (0.8-4.8); Lymphocytes % 5.7 %; Mean Corpuscular HGB Conc 33.5 g/dL (30-55); Mean Corpuscular Hemoglobin 29.1 pg (27-33); Mean Corpuscular Volume 86.9 fl (85-98); Mean Platelet Volume 9.6 fL (7.4-10.4); Monocytes # 0.4 10^3/uL (0.2-0.9); Monocytes % 9.6 %; Neutrophils # 2.99 10^3/uL (1.8-7.7); Nucleated Red Blood Cells % 0 %; Platelet Count 87 10^3/cmm (157-399); Red Blood Count 3.81 10^6/uL (3.85-5.65); Red Cell Distribution Width 14.8 % (12.1-15.1); White Blood Count 3.84 10^3/uL (3.29-11.43)
[2024-08-02 10:30] LABS: Alanine Aminotransferase 45 U/L (0-33); Albumin Level 3.9 g/dL (3.5-5.2); Alkaline Phosphatase 220 U/L (35-105); Anion Gap 17.3 (5-19); Aspartate Amino Transferase 31 U/L (0-32); Blood Urea Nitrogen 8 mg/dL (6-20); Calcium 9.1 mg/dL (8.5-10.5); Carbon Dioxide 23 mmol/L (22-29); Chloride 103 mmol/L (98-107); Globulin 2.3 g/dL (1.3-4.6); Glomerular Filtration Rate 85.9 mL/min (90-130); Glucose 164 mg/dL (65-115); Lactate Dehydrogenase 182 U/L (135-214); Magnesium 1.4 mg/dL (1.7-2.3); Osmolality Calculated 292 mOsm/kg (285-295); Phosphorus 3.3 mg/dL (2.5-4.5); Potassium 3.3 mmol/L (3.5-5.1); Sodium 140 mmol/L (136-145); Total Bilirubin 0.2 mg/dL (0.15-1.2); Total Protein 6.2 g/dL (6.6-8.7); Uric Acid 3.9 mg/dL (2.4-5.7)
[2024-08-08 12:40] LABS: Basophils % 0.6 %; Eosinophils # 0.2 10^3/uL (0.0-0.8); Eosinophils % 4.8 %; Hematocrit 34.7 % (36-47); Lymphocytes # 0.4 10^3/uL (0.8-4.8); Lymphocytes % 10.4 %; Mean Corpuscular HGB Conc 33.4 g/dL (30-55); Mean Corpuscular Hemoglobin 29.3 pg (27-33); Mean Corpuscular Volume 87.6 fl (85-98); Mean Platelet Volume 9.4 fL (7.4-10.4); Monocytes # 0.4 10^3/uL (0.2-0.9); Monocytes % 11.3 %; Neutrophils # 2.44 10^3/uL (1.8-7.7); Neutrophils % 72.6 %; Nucleated Red Blood Cells % 0 %; Platelet Count 105 10^3/cmm (157-399); Red Blood Count 3.96 10^6/uL (3.85-5.65); Red Cell Distribution Width 15.4 % (12.1-15.1); White Blood Count 3.36 10^3/uL (3.29-11.43)
[2024-08-08 12:56] LABS: Alanine Aminotransferase 27 U/L (0-33); Albumin Level 4.2 g/dL (3.5-5.2); Alkaline Phosphatase 207 U/L (35-105); Anion Gap 17.2 (5-19); Aspartate Amino Transferase 25 U/L (0-32); Blood Urea Nitrogen 11 mg/dL (6-20); Calcium 9.1 mg/dL (8.5-10.5); Carbon Dioxide 23 mmol/L (22-29); Chloride 101 mmol/L (98-107); Globulin 2.4 g/dL (1.3-4.6); Glomerular Filtration Rate 85.9 mL/min (90-130); Glucose 177 mg/dL (65-115); Osmolality Calculated 290 mOsm/kg (285-295); Potassium 3.2 mmol/L (3.5-5.1); Sodium 138 mmol/L (136-145); Total Bilirubin 0.2 mg/dL (0.15-1.2); Total Protein 6.6 g/dL (6.6-8.7)
[2024-08-23 14:18] LABS: Basophils % 0.9 %; Eosinophils # 0.2 10^3/uL (0.0-0.8); Eosinophils % 7.2 %; Hematocrit 32.2 % (36-47); Lymphocytes # 0.5 10^3/uL (0.8-4.8); Lymphocytes % 22.9 %; Mean Corpuscular HGB Conc 33.9 g/dL (30-55); Mean Corpuscular Hemoglobin 29.4 pg (27-33); Mean Corpuscular Volume 86.8 fl (85-98); Mean Platelet Volume 9.3 fL (7.4-10.4); Monocytes # 0.5 10^3/uL (0.2-0.9); Monocytes % 20.6 %; Neutrophils # 1.07 10^3/uL (1.8-7.7); Nucleated Red Blood Cells % 0 %; Platelet Count 112 10^3/cmm (157-399); Red Blood Count 3.71 10^6/uL (3.85-5.65); Red Cell Distribution Width 15.7 % (12.1-15.1); White Blood Count 2.23 10^3/uL (3.29-11.43)
[2024-08-23 14:40] LABS: Alanine Aminotransferase 38 U/L (0-33); Albumin Level 4.2 g/dL (3.5-5.2); Alkaline Phosphatase 195 U/L (35-105); Anion Gap 15.8 (5-19); Aspartate Amino Transferase 34 U/L (0-32); Blood Urea Nitrogen 10 mg/dL (6-20); Calcium 9.2 mg/dL (8.5-10.5); Carbon Dioxide 23 mmol/L (22-29); Chloride 105 mmol/L (98-107); Globulin 2.2 g/dL (1.3-4.6); Glomerular Filtration Rate 85.9 mL/min (90-130); Glucose 89 mg/dL (65-115); Lactate Dehydrogenase 292 U/L (135-214); Magnesium 1.6 mg/dL (1.7-2.3); Osmolality Calculated 289 mOsm/kg (285-295); Phosphorus 4.2 mg/dL (2.5-4.5); Potassium 3.8 mmol/L (3.5-5.1); Sodium 140 mmol/L (136-145); Total Bilirubin 0.2 mg/dL (0.15-1.2); Total Protein 6.4 g/dL (6.6-8.7); Uric Acid 4.1 mg/dL (2.4-5.7)
== END 2024-08-28 23:59 | disposition home or self-care (01) ==
PROVIDERS: Nurse Practitioner; Nurse Practitioner Family; PCP Electrodiagnostic Medicine; Visit Provider Internal Medicine
DX: Z53.9 Procedure and treatment not carried out, unspecified reason; C85.90 Non-Hodgkin lymphoma, unspecified, unspecified site; D50.9 Iron deficiency anemia, unspecified
CPT/HCPCS: 36415; 36591; 80053; 83615; 83735; 84100; 84550; 85025; 96523

== ENCOUNTER 2024-09-28 12:45 | Oncology outpatient (recurring) (ONCR) | payer BC, MEDICAID, SELFPAY ==
[2024-09-06 12:07] LABS: Hematocrit 33.9 % (36-47); Hemoglobin 11.30 g/dL (11.27-16.99); Mean Corpuscular HGB Conc 33.3 g/dL (30-55); Mean Corpuscular Hemoglobin 29.2 pg (27-33); Mean Corpuscular Volume 87.6 fl (85-98); Nucleated Red Blood Cells % 0 %; Platelet Count 131 10^3/cmm (157-399); Red Blood Count 3.87 10^6/uL (3.85-5.65); White Blood Count 2.94 10^3/uL (3.29-11.43)
[2024-09-06 12:24] LABS: Alanine Aminotransferase 38 U/L (0-33); Albumin Level 4.4 g/dL (3.5-5.2); Alkaline Phosphatase 156 U/L (35-105); Anion Gap 18.0 (5-19); Aspartate Amino Transferase 43 U/L (0-32); Blood Urea Nitrogen 9 mg/dL (6-20); Calcium 9.4 mg/dL (8.5-10.5); Carbon Dioxide 23 mmol/L (22-29); Chloride 103 mmol/L (98-107); Creatinine Clr Calc Pharmacy 69.3539; Globulin 2.5 g/dL (1.3-4.6); Glucose 88 mg/dL (65-115); Osmolality Calculated 288 mOsm/kg (285-295); Potassium 4.0 mmol/L (3.5-5.1); Sodium 140 mmol/L (136-145); Total Protein 6.9 g/dL (6.6-8.7)
[2024-09-28 13:18] LABS: Hematocrit 33.8 % (36-47); Hemoglobin 11.40 g/dL (11.27-16.99); Mean Corpuscular HGB Conc 33.7 g/dL (30-55); Mean Corpuscular Hemoglobin 30.1 pg (27-33); Mean Corpuscular Volume 89.2 fl (85-98); Nucleated Red Blood Cells % 0 %; Platelet Count 130 10^3/cmm (157-399); Red Blood Count 3.79 10^6/uL (3.85-5.65); White Blood Count 3.36 10^3/uL (3.29-11.43)
[2024-09-28 13:35] LABS: Alanine Aminotransferase 65 U/L (0-33); Albumin Level 4.3 g/dL (3.5-5.2); Alkaline Phosphatase 189 U/L (35-105); Anion Gap 15.1 (5-19); Aspartate Amino Transferase 40 U/L (0-32); Blood Urea Nitrogen 13 mg/dL (6-20); Calcium 9.2 mg/dL (8.5-10.5); Carbon Dioxide 23 mmol/L (22-29); Chloride 106 mmol/L (98-107); Creatinine Clr Calc Pharmacy 68.6952; Globulin 2.4 g/dL (1.3-4.6); Glucose 84 mg/dL (65-115); Osmolality Calculated 289 mOsm/kg (285-295); Potassium 4.1 mmol/L (3.5-5.1); Sodium 140 mmol/L (136-145); Total Protein 6.7 g/dL (6.6-8.7)
== END 2024-09-28 23:59 | disposition home or self-care (01) ==
PROVIDERS: Internal Medicine; PCP Electrodiagnostic Medicine; Visit Provider Internal Medicine
DX: Z53.9 Procedure and treatment not carried out, unspecified reason; C85.90 Non-Hodgkin lymphoma, unspecified, unspecified site
CPT/HCPCS: 36591; 80053; 85025

== ENCOUNTER 2024-11-16 09:30 | Oncology outpatient (recurring) (ONCR) | payer BC, MEDICAID, SELFPAY ==
[2024-11-02 15:16] LABS: Hematocrit 38.3 % (36-47); Hemoglobin 12.70 g/dL (11.27-16.99); Mean Corpuscular HGB Conc 33.2 g/dL (30-55); Mean Corpuscular Hemoglobin 30.5 pg (27-33); Mean Corpuscular Volume 91.8 fl (85-98); Nucleated Red Blood Cells % 0 %; Platelet Count 172 10^3/cmm (157-399); Red Blood Count 4.17 10^6/uL (3.85-5.65); White Blood Count 3.72 10^3/uL (3.29-11.43)
[2024-11-02 15:34] LABS: Alanine Aminotransferase 95 U/L (0-33); Albumin Level 4.6 g/dL (3.5-5.2); Alkaline Phosphatase 180 U/L (35-105); Anion Gap 19.9 (5-19); Aspartate Amino Transferase 57 U/L (0-32); Blood Urea Nitrogen 20 mg/dL (6-20); Calcium 10.0 mg/dL (8.5-10.5); Carbon Dioxide 24 mmol/L (22-29); Chloride 100 mmol/L (98-107); Creatinine Clr Calc Pharmacy 71.5495; Globulin 2.7 g/dL (1.3-4.6); Glucose 116 mg/dL (65-115); Magnesium 1.7 mg/dL (1.7-2.3); Osmolality Calculated 294 mOsm/kg (285-295); Potassium 3.9 mmol/L (3.5-5.1); Sodium 140 mmol/L (136-145); Total Protein 7.3 g/dL (6.6-8.7); Uric Acid 6.7 mg/dL (2.4-5.7)
[2024-11-03 06:09] LABS: PROTEIN, TOTAL 6.9 g/dL (6.1-8.1)
[2024-11-03 18:14] LABS: ALPHA 1 GLOBULIN 0.3 g/dL (0.2-0.3); ALPHA 2 GLOBULIN 0.7 g/dL (0.5-0.9); BETA 1 GLOBULIN 0.5 g/dL (0.4-0.6); BETA 2 GLOBULIN 0.3 g/dL (0.2-0.5)
[2024-11-16 10:08] LABS: Hematocrit 31.5 % (36-47); Hemoglobin 10.50 g/dL (11.27-16.99); Mean Corpuscular HGB Conc 33.3 g/dL (30-55); Mean Corpuscular Hemoglobin 30.0 pg (27-33); Mean Corpuscular Volume 90.0 fl (85-98); Nucleated Red Blood Cells % 0 %; Platelet Count 122 10^3/cmm (157-399); Red Blood Count 3.50 10^6/uL (3.85-5.65); White Blood Count 3.92 10^3/uL (3.29-11.43)
[2024-11-16 10:30] LABS: Alanine Aminotransferase 32 U/L (0-33); Albumin Level 4.2 g/dL (3.5-5.2); Alkaline Phosphatase 148 U/L (35-105); Anion Gap 18.0 (5-19); Aspartate Amino Transferase 31 U/L (0-32); Blood Urea Nitrogen 10 mg/dL (6-20); Calcium 8.9 mg/dL (8.5-10.5); Carbon Dioxide 21 mmol/L (22-29); Chloride 104 mmol/L (98-107); Creatinine Clr Calc Pharmacy 63.4653; Globulin 2.5 g/dL (1.3-4.6); Glucose 112 mg/dL (65-115); Osmolality Calculated 288 mOsm/kg (285-295); Potassium 4.0 mmol/L (3.5-5.1); Sodium 139 mmol/L (136-145); Total Protein 6.7 g/dL (6.6-8.7)
[2024-11-16 10:48] LABS: Hepatitis A Antibody IgM Non-Reactive (Nonreactive); Hepatitis B Surface Antigen Non-Reactive (Nonreactive)
[2024-11-16 11:45] LABS: Uric Acid 6.7 mg/dL (2.4-5.7)
[2024-11-16] MEDS: diphenhydrAMINE 50 mg/mL SDV 1mL 25 MG IVP (11:52)
[2024-11-16 15:00] VITALS: BP 115/69; PULSE 71; RESP 16; TEMP 36.6; O2SAT 98
== END 2024-11-28 23:59 | disposition home or self-care (01) ==
PROVIDERS: Internal Medicine; Nurse Practitioner; PCP Electrodiagnostic Medicine; Visit Provider Nurse Practitioner Family
DX: Z53.9 Procedure and treatment not carried out, unspecified reason; Z51.12 Encounter for antineoplastic immunotherapy; C82.98 Follicular lymphoma, unspecified, lymph nodes of multiple sites; C43.61 Malignant melanoma of right upper limb, including shoulder; M25.40 Effusion, unspecified joint
CPT/HCPCS: 36591; 80053; 82784; 83615; 83735; 84155; 84165; 84550; 85025; 85651; 86334; 86705; 86706; 86709; 86803; 87340; 96413; 96415; J1200; J7040; J9312; J9999

== ENCOUNTER 2024-12-14 11:39 | Oncology outpatient (recurring) (ONCR) | payer BC, MEDICAID, SELFPAY ==
[2024-12-14 12:18] LABS: Hematocrit 29.6 % (36-47); Hemoglobin 10.00 g/dL (11.27-16.99); Mean Corpuscular HGB Conc 33.8 g/dL (30-55); Mean Corpuscular Hemoglobin 29.7 pg (27-33); Mean Corpuscular Volume 87.8 fl (85-98); Nucleated Red Blood Cells % 0 %; Platelet Count 157 10^3/cmm (157-399); Red Blood Count 3.37 10^6/uL (3.85-5.65); White Blood Count 3.53 10^3/uL (3.29-11.43)
[2024-12-14 12:25] LABS: Alanine Aminotransferase 29 U/L (0-33); Albumin Level 4.3 g/dL (3.5-5.2); Alkaline Phosphatase 142 U/L (35-105); Anion Gap 16.7 (5-19); Aspartate Amino Transferase 28 U/L (0-32); Blood Urea Nitrogen 16 mg/dL (6-20); Calcium 9.4 mg/dL (8.5-10.5); Carbon Dioxide 24 mmol/L (22-29); Chloride 102 mmol/L (98-107); Globulin 2.5 g/dL (1.3-4.6); Glucose 112 mg/dL (65-115); Osmolality Calculated 290 mOsm/kg (285-295); Potassium 3.7 mmol/L (3.5-5.1); Sodium 139 mmol/L (136-145); Total Protein 6.8 g/dL (6.6-8.7)
[2024-12-14 13:57] LABS: Uric Acid 5.9 mg/dL (2.4-5.7)
== END 2024-12-29 23:59 | disposition home or self-care (01) ==
LOC: ONCMED 11:40
PROVIDERS: Nurse Practitioner; PCP Electrodiagnostic Medicine; Visit Provider Nurse Practitioner Family
DX: C82.98 Follicular lymphoma, unspecified, lymph nodes of multiple sites (principal); Z95.828 Presence of other vascular implants and grafts
CPT/HCPCS: 36591; 80053; 84550; 85025

== ENCOUNTER 2025-02-15 09:59 | Oncology outpatient (recurring) (ONCR) | payer BC, MEDICAID, SELFPAY ==
[2025-02-15 10:22] LABS: Hematocrit 31.0 % (36-47); Hemoglobin 10.10 g/dL (11.27-16.99); Mean Corpuscular HGB Conc 32.6 g/dL (30-55); Mean Corpuscular Hemoglobin 28.9 pg (27-33); Mean Corpuscular Volume 88.8 fl (85-98); Nucleated Red Blood Cells % 0 %; Platelet Count 135 10^3/cmm (157-399); Red Blood Count 3.49 10^6/uL (3.85-5.65); White Blood Count 3.23 10^3/uL (3.29-11.43)
[2025-02-15 10:44] LABS: Alanine Aminotransferase 32 U/L (0-33); Albumin Level 4.3 g/dL (3.5-5.2); Alkaline Phosphatase 143 U/L (35-105); Anion Gap 12.8 (5-19); Aspartate Amino Transferase 35 U/L (0-32); Blood Urea Nitrogen 14 mg/dL (6-20); Calcium 9.8 mg/dL (8.5-10.5); Carbon Dioxide 26 mmol/L (22-29); Chloride 103 mmol/L (98-107); Globulin 1.9 g/dL (1.3-4.6); Glucose 132 mg/dL (65-115); Osmolality Calculated 288 mOsm/kg (285-295); Potassium 3.8 mmol/L (3.5-5.1); Sodium 138 mmol/L (136-145); Total Protein 6.2 g/dL (6.6-8.7)
[2025-02-15 11:24] LABS: Ferritin 19 ng/mL (15-150); Iron 41 ug/dL (37-145); Total Iron Binding Capacity 383 mcg/dl; Unsaturated Iron Binding 342 ug/dL (112-347)
[2025-02-15] MEDS: diphenhydrAMINE 50 mg/mL SDV 1mL 25 MG IVP (11:36)
[2025-02-15 12:30] VITALS: BP 150/95; PULSE 90; RESP 90; TEMP 36.8; O2SAT 95
[2025-02-15 13:00] VITALS: BP 141/90; PULSE 89; TEMP 36.6; O2SAT 96
[2025-02-15 13:31] VITALS: BP 145/89; PULSE 85; TEMP 36.5; O2SAT 95
[2025-02-15 14:03] VITALS: BP 164/94; PULSE 93; TEMP 36.3; O2SAT 96
[2025-02-15 15:34] VITALS: BP 148/89; PULSE 93; TEMP 36.5; O2SAT 96
[2025-02-16 04:21] LABS: PROTEIN, TOTAL 6.2 g/dL (6.1-8.1)
[2025-02-16 19:46] LABS: ALPHA 1 GLOBULIN 0.3 g/dL (0.2-0.3); ALPHA 2 GLOBULIN 0.7 g/dL (0.5-0.9); BETA 1 GLOBULIN 0.5 g/dL (0.4-0.6); BETA 2 GLOBULIN 0.3 g/dL (0.2-0.5)
== END 2025-02-28 23:59 | disposition home or self-care (01) ==
PROVIDERS: Nurse Practitioner; PCP Electrodiagnostic Medicine; Visit Provider Nurse Practitioner Family
DX: Z53.9 Procedure and treatment not carried out, unspecified reason (principal); Z51.12 Encounter for antineoplastic immunotherapy; C82.98 Follicular lymphoma, unspecified, lymph nodes of multiple sites; Z95.828 Presence of other vascular implants and grafts; D50.9 Iron deficiency anemia, unspecified
CPT/HCPCS: 80053; 82728; 82784; 83540; 83550; 83615; 84155; 84165; 85025; 86334; 96375; 96413; 96415; J1200; J7040; J9312; J9999